=== PATIENT | female | born 1965 | race American Indian/Alaskan Native ===

== ENCOUNTER 2016-06-19 15:27 | Emergency (ER) | payer MEDICARE ==
[2016-06-19] MEDS ORDERED: KEPPRA 1,500 MG in D5W 100 ML IV ONE (22:59)
--- NOTE | 2016-06-19 23:04 | Emergency Department Report ---
ED Seizure HPI - General Chief Complaint: Seizure Stated Complaint: SEIZURE Time Seen by Provider: 06/19/16 22:50 Source: patient Mode of arrival: Ambulatory Limitations: No Limitations - History of Present Illness Initial Comments: Patient is a 50-year-old female with a history of a seizure disorder presenting to the ER status post seizure. Patient reports she takes Keppra 1500 mg by mouth twice a day but has been noncompliant for the past 3 days. Patient did have associated aura of slurred speech and lightheadedness and had a seizure in her bed radius night. Patient now complains of headache and tongue pain status post tongue bite. Reports she did not take her medications because she ran out of her meds. Patient's neurologist is Dr. Omalley. Otherwise no fevers, dizziness , hearing changes, visual changes, falls, head trauma, chest pain, shortness of breath, abdominal pain, travel, or sick contacts. MD Complaint: seizure - Related Data Home Medications Medication Instructions Recorded Confirmed Last Taken Gabapentin [Neurontin] 300 mg PO DAILY 12/30/13 01/23/16 11/17/14 Morphine [Morphine TAB] 30 mg PO DAILY 12/30/13 01/23/16 01/07/16 Previous Rx's Medication Instructions Recorded Last Taken Type Lisinopril [Zestril TAB] 20 mg PO QDAY #30 tablet 06/20/16 Unknown Rx levETIRAcetam [Keppra TAB] 1,000 mg PO BID #60 tab 06/20/16 Unknown Rx levETIRAcetam [Keppra TAB] 500 mg PO BID #60 tablet 06/20/16 Unknown Rx Allergies Allergy/AdvReac Type Severity Reaction Status Date / Time acetaminophen [From Percocet] Allergy Unknown Verified 07/14/14 18:51 oxycodone HCl [From Percocet] Allergy Unknown Verified 07/14/14 18:51 aspirin AdvReac Vomiting Verified 07/14/14 18:51 ibuprofen [From Motrin] AdvReac Vomiting Verified 07/14/14 18:51 ED Review of Systems ROS: Stated complaint: SEIZURE Other details as noted in HPI Comment: All other systems reviewed and negative ED Past Medical Hx - Past Medical History Hx Hypertension: Yes Hx CVA: Yes Hx Heart Attack/AMI: No Hx Congestive Heart Failure: No Hx Diabetes: No Hx Deep Vein Thrombosis: No Hx Pulmonary Embolism: No Hx Liver Disease: No Hx Renal Disease: No Hx Sickle Cell Disease: No Hx Arthritis: No Hx Seizures: Yes Hx Kidney Stones: No Hx Asthma: Yes Hx COPD: No Hx Tuberculosis: No Hx Dementia: No Hx HIV: No Additional medical history: FIBROIDS. CHRONIC BACK PAIN. Tachycardia. gastroparesis - Surgical History Hx Coronary Stent: No Hx Open Heart Surgery: No Hx Pacemaker: No Hx Internal Defibrillator: No Hx Cholecystectomy: Yes Hx Appendectomy: No Hx Breast Surgery: No Additional Surgical History: rotator cuff - Social History Smoking Status: Never Smoker Substance Use Type: None - Medications Home Medications: Home Medications Medication Instructions Recorded Confirmed Last Taken Type Gabapentin [Neurontin] 300 mg PO DAILY 12/30/13 01/23/16 11/17/14 History Morphine [Morphine TAB] 30 mg PO DAILY 12/30/13 01/23/16 01/07/16 History Lisinopril [Zestril TAB] 20 mg PO QDAY #30 tablet 06/20/16 Unknown Rx levETIRAcetam [Keppra TAB] 1,000 mg PO BID #60 tab 06/20/16 Unknown Rx levETIRAcetam [Keppra TAB] 500 mg PO BID #60 tablet 06/20/16 Unknown Rx ED Physical Exam - General Limitations: No Limitations General appearance: alert, in no apparent distress - Head Head exam: Present: atraumatic, normocephalic - Eye Eye exam: Present: normal appearance - ENT ENT exam: Present: mucous membranes moist, other (tongue bite to the right side) - Neck Neck exam: Present: normal inspection - Respiratory Respiratory exam: Present: normal lung sounds bilaterally. Absent: respiratory distress - Cardiovascular Cardiovascular Exam: Present: regular rate, normal rhythm. Absent: systolic murmur, diastolic murmur, rubs, gallop - GI/Abdominal GI/Abdominal exam: Present: soft, normal bowel sounds - Extremities Exam Extremities exam: Present: normal inspection - Back Exam Back exam: Present: normal inspection - Neurological Exam Neurological exam: Present: alert, oriented X3, CN II-XII intact, reflexes normal. Absent: altered, motor sensory deficit - Psychiatric Psychiatric exam: Present: normal affect, normal mood - Skin Skin exam: Present: warm, dry, intact, normal color. Absent: rash ED Course Vital Signs 06/19/16 06/19/16 06/19/16 16:31 21:56 22:31 Temperature 97.8 F 98.0 F 98.6 F Pulse Rate 92 H 95 H 91 H Respiratory 18 18 21 Rate Blood Pressure 155/98 141/104 Blood Pressure 140/102 [Left] O2 Sat by Pulse 98 97 98 Oximetry 06/20/16 00:00 Temperature Pulse Rate 90 Respiratory 18 Rate Blood Pressure Blood Pressure 146/81 [Left] O2 Sat by Pulse 98 Oximetry ED Medical Decision Making - Lab Data Result diagrams: 06/19/16 23:11 06/19/16 23:11 - EKG Data -: EKG Interpreted by Pr ([id number]) EKG shows normal: sinus rhythm, axis (normal axis, biatrial enlargement), intervals (QTc:467ms), ST-T waves ((-)ST changes, no STEMI) Rate: normal (88 bpm) - Radiology Data Radiology results: report reviewed CT Head: No acute intracranial pathology. - Medical Decision Making Ordered patient's home dose of keppra 1500mg IVPB Critical care attestation.: If time is entered above; I have spent that time in minutes in the direct care of this critically ill patient, excluding procedure time. ED Disposition Clinical Impression: Seizure Disposition: DISCHARGED TO HOME OR SELFCARE Is pt being admited?: No Condition: Stable Instructions: Epilepsy (ED) Prescriptions: levETIRAcetam [Keppra TAB] 1,000 mg PO BID #60 tab levETIRAcetam [Keppra TAB] 500 mg PO BID #60 tablet Lisinopril [Zestril TAB] 20 mg PO QDAY #30 tablet Referrals: PRIMARY CARE, [Primary Care Provider] - 3-5 Days
[2016-06-19 23:23] LABS: Basophils % (Auto) 0.4 % (0.0-1.8); Eosinophils % (Auto) 0.8 % (0.0-4.3); Hematocrit 37.2 % (30.3-42.9); Hemoglobin 12.4 gm/dl (10.1-14.3); Mean Corpuscular HGB Conc 33 % (30-34); Mean Corpuscular Hemoglobin 29 pg (28-32); Mean Corpuscular Volume 88 fl (79-97); Platelet Count 286 K/mm3 (140-440); Red Blood Count 4.26 M/mm3 (3.65-5.03); White Blood Count 7.3 K/mm3 (4.5-11.0)
[2016-06-19 23:38] LABS: Anion Gap 19 mmol/L; Blood Urea Nitrogen 8 mg/dL (7-17); Calcium 9.3 mg/dL (8.4-10.2); Carbon Dioxide 23 mmol/L (22-30); Chloride 95.3 mmol/L (98-107); Glucose 122 mg/dL (65-100); Potassium 4.2 mmol/L (3.6-5.0); Sodium 133 mmol/L (137-145)
[2016-06-20 00:55] LABS: Bacteria,Urine 1+ /HPF (Negative); Bilirubin,Urine NEG (Negative); Blood,Urine NEG (Negative); Ketones,Urine NEG (Negative); Leukocyte Esterase,Urine NEG (Negative); Mucus,Urine FEW /HPF; Nitrite,Urine NEG (Negative); RBC,Urine < 1.0 /HPF (0.0-6.0); Urobilinogen,Urine < 2.0 mg/dL (<2.0)
[2016-06-20] MEDS ORDERED: TYLENOL PO ONE (01:52)
--- NOTE | 2016-06-20 01:56 | Cat Scan Report ---
FINAL REPORT PROCEDURE: CT HEAD/BRAIN WO CON TECHNIQUE: Computerized tomography of the head was performed without contrast material. HISTORY: seizure COMPARISON: No prior studies are available for comparison. FINDINGS: Skull and scalp: Normal. Paranasal sinuses: Normal. Ventricles and subarachnoid spaces: Normal. Cerebrum: No evidence of hemorrhage, acute infarction or mass . Cerebellum and brainstem: No evidence of hemorrhage, acute infarction or mass. Vasculature: Normal. Comments: None. IMPRESSION: Normal Examination
[2016-06-20 02:06] VITALS: BP 138/80
== END 2016-06-20 02:13 | disposition home or self-care (01) ==
LOC: ED 15:27
DX: R56.9 Unspecified convulsions (principal); I10 Essential (primary) hypertension; J45.909 Unspecified asthma, uncomplicated; G89.29 Other chronic pain; Z86.73 Personal history of transient ischemic attack (TIA), and cerebral infarction without residual deficits; Z90.49 Acquired absence of other specified parts of digestive tract; Z88.6 Allergy status to analgesic agent; Z88.8 Allergy status to other drugs, medicaments and biological substances
CPT/HCPCS: 36415; 70450; 80048; 81001; 81025; 85025; 93005; 93010; 96365; 96366; 99285; J1953

== ENCOUNTER 2016-08-13 16:31 | Emergency (ER) | payer MEDICARE ==
--- NOTE | 2016-08-13 17:05 | Emergency Department Report ---
ED Seizure HPI - General Chief Complaint: Seizure Stated Complaint: SEIZURE Time Seen by Provider: 08/13/16 17:01 Source: patient, EMS Mode of arrival: Stretcher Limitations: No Limitations - History of Present Illness Initial Comments: Patient is a 51-year-old female with a history of hypertension and seizure disorder presenting with seizures. Patient reports she had 2 seizures today, one in the morning and then one about 30 minutes prior to arrival. Patient reports her seizures were unwitnessed but she knows she had a seizure because she bit her tongue and urinary incontinence. Patient is now awake and alert but also complaining of slurred speech that started this morning, nausea, vomiting, and a frontal GRIJALVA, but no other complaints noted. No new medications, patient takes Keppra 1500mg PO BID and has not missed any doses. Pt had an EEG a week ago for routine monitoring with Dr Omalley. Otherwise no fevers, chills, CP , SOB, abd pain, travel, gait instability, dysuria, back pain, trauma, falls, or sick contacts. Neuro: Dr Shahram MCRAE Complaint: seizure - Related Data Home Medications Medication Instructions Recorded Confirmed Last Taken Gabapentin [Neurontin] 300 mg PO DAILY 12/30/13 01/23/16 11/17/14 Morphine [Morphine TAB] 30 mg PO DAILY 12/30/13 01/23/16 01/07/16 Previous Rx's Medication Instructions Recorded Last Taken Type Lisinopril [Zestril TAB] 20 mg PO QDAY #30 tablet 06/20/16 Unknown Rx levETIRAcetam [Keppra TAB] 1,000 mg PO BID #60 tab 06/20/16 Unknown Rx levETIRAcetam [Keppra TAB] 500 mg PO BID #60 tablet 06/20/16 Unknown Rx amLODIPine [Norvasc] 5 mg PO DAILY #30 tab 08/13/16 Unknown Rx Allergies Allergy/AdvReac Type Severity Reaction Status Date / Time acetaminophen [From Percocet] Allergy Unknown Verified 07/14/14 18:51 oxycodone HCl [From Percocet] Allergy Unknown Verified 07/14/14 18:51 aspirin AdvReac Vomiting Verified 07/14/14 18:51 ibuprofen [From Motrin] AdvReac Vomiting Verified 07/14/14 18:51 ED Review of Systems ROS: Stated complaint: SEIZURE Other details as noted in HPI Comment: All other systems reviewed and negative ED Past Medical Hx - Past Medical History Previous Medical History?: Yes Hx Hypertension: Yes Hx CVA: Yes Hx Heart Attack/AMI: No Hx Congestive Heart Failure: No Hx Diabetes: No Hx Deep Vein Thrombosis: No Hx Pulmonary Embolism: No Hx Liver Disease: No Hx Renal Disease: No Hx Sickle Cell Disease: No Hx Arthritis: No Hx Seizures: Yes Hx Kidney Stones: No Hx Asthma: Yes Hx COPD: No Hx Tuberculosis: No Hx Dementia: No Hx HIV: No Additional medical history: FIBROIDS. CHRONIC BACK PAIN. Tachycardia. gastroparesis - Surgical History Past Surgical History?: Yes Hx Coronary Stent: No Hx Open Heart Surgery: No Hx Pacemaker: No Hx Internal Defibrillator: No Hx Cholecystectomy: Yes Hx Appendectomy: No Hx Breast Surgery: No Additional Surgical History: rotator cuff - Social History Smoking Status: Never Smoker Substance Use Type: None - Medications Home Medications: Home Medications Medication Instructions Recorded Confirmed Last Taken Type Gabapentin [Neurontin] 300 mg PO DAILY 12/30/13 01/23/16 11/17/14 History Morphine [Morphine TAB] 30 mg PO DAILY 12/30/13 01/23/16 01/07/16 History Lisinopril [Zestril TAB] 20 mg PO QDAY #30 tablet 06/20/16 Unknown Rx levETIRAcetam [Keppra TAB] 1,000 mg PO BID #60 tab 06/20/16 Unknown Rx levETIRAcetam [Keppra TAB] 500 mg PO BID #60 tablet 06/20/16 Unknown Rx amLODIPine [Norvasc] 5 mg PO DAILY #30 tab 08/13/16 Unknown Rx ED Physical Exam - General Limitations: No Limitations General appearance: alert, in no apparent distress - Head Head exam: Present: atraumatic, normocephalic - Eye Eye exam: Present: normal appearance - ENT ENT exam: Present: mucous membranes moist - Neck Neck exam: Present: normal inspection - Respiratory Respiratory exam: Present: normal lung sounds bilaterally. Absent: respiratory distress - Cardiovascular Cardiovascular Exam: Present: regular rate, normal rhythm. Absent: systolic murmur, diastolic murmur, rubs, gallop - GI/Abdominal GI/Abdominal exam: Present: soft, normal bowel sounds - Extremities Exam Extremities exam: Present: normal inspection - Back Exam Back exam: Present: normal inspection - Neurological Exam Neurological exam: Present: alert, oriented X3, CN II-XII intact, other ( Patient does not have slurred speech, she is speaking clear sentences. ). Absent: motor sensory deficit - Psychiatric Psychiatric exam: Present: normal affect, normal mood - Skin Skin exam: Present: warm, dry, intact, normal color. Absent: rash ED Course Vital Signs 08/13/16 08/13/16 08/13/16 16:37 16:45 17:01 Pulse Rate 116 H 102 H Respiratory 24 17 Rate Blood Pressure 148/107 148/107 Blood Pressure [Right] O2 Sat by Pulse 96 95 95 Oximetry 08/13/16 08/13/16 08/13/16 17:18 17:53 18:00 Pulse Rate 107 H 114 H Respiratory 17 25 H 22 Rate Blood Pressure 160/96 163/96 Blood Pressure [Right] O2 Sat by Pulse 95 97 96 Oximetry 08/13/16 08/13/16 08/13/16 18:17 18:30 20:06 Pulse Rate 110 H 108 H Respiratory 25 H 25 H 20 Rate Blood Pressure 143/88 Blood Pressure 117/79 [Right] O2 Sat by Pulse 88 99 Oximetry 08/13/16 21:44 Pulse Rate 98 H Respiratory 20 Rate Blood Pressure Blood Pressure 141/90 [Right] O2 Sat by Pulse 98 Oximetry ED Medical Decision Making - Lab Data Result diagrams: 08/13/16 17:20 08/13/16 16:50 - EKG Data -: EKG Interpreted by Hi - EKG Data 08/13/16 17:25 EKG 1747 NSR at 109 bpm, normal axis, no LVH, LAE, no ST changes, no STEMI - Radiology Data Radiology results: report reviewed CT head: No acute intracranial abnormality - Medical Decision Making Pt re-evaluated, patient reports significant improvement. Pt ordered Kdur 40meq for potassium repletion Pt given PM dose of her Keppra 1500mg 2015: Pt re-evaluated, patient comfortable, no seizure activity in the ED, patients HR: 107 bpm, ordered 1L NS IVF bolus Critical care attestation.: If time is entered above; I have spent that time in minutes in the direct care of this critically ill patient, excluding procedure time. ED Disposition Clinical Impression: Seizure disorder, Hypokalemia Disposition: DC-01 TO HOME OR SELFCARE Is pt being admited?: No Condition: Stable Instructions: Hypokalemia (ED), Epilepsy (ED) Prescriptions: amLODIPine [Norvasc] 5 mg PO DAILY #30 tab Referrals: PRIMARY CARE, [Primary Care Provider] - 3-5 Days FRITZ NAGEL MD [Staff Physician] - 3-5 Days
[2016-08-13 17:29] LABS: Hematocrit 44.5 % (30.3-42.9); Hemoglobin 14.9 gm/dl (10.1-14.3); Mean Corpuscular HGB Conc 34 % (30-34); Mean Corpuscular Hemoglobin 30 pg (28-32); Mean Corpuscular Volume 89 fl (79-97); Platelet Count 375 K/mm3 (140-440); Red Cell Distribution Width 14.4 % (13.2-15.2); White Blood Count 10.2 K/mm3 (4.5-11.0)
--- NOTE | 2016-08-13 17:40 | Cat Scan Report ---
FINAL REPORT PROCEDURE: CT HEAD/BRAIN WO CON TECHNIQUE: Computerized tomography of the head was performed without contrast material. HISTORY: slurred speech COMPARISON: Prior study 06/20/2016 FINDINGS: Brain: Brain density appears normal. No evidence of intracranial hemorrhage. No parenchymal hemorrhage, mass lesions or mass effect are seen. No abnormal extraxial fluid collects or masses are seen. Minimal nonspecific mineralization of the basal ganglia are visualized. Ventricles: Ventricles are normal size and are midline. Bone Windows: No evidence of skull fracture. Paranasal sinuses: Visualized portions of the paranasal sinuses appear clear. Mastoid air cells: Clear IMPRESSION: Negative examination
[2016-08-13 17:50] LABS: Anion Gap 23 mmol/L; Blood Urea Nitrogen 12 mg/dL (7-17); Carbon Dioxide 24 mmol/L (22-30); Chloride 96.1 mmol/L (98-107); Glucose 151 mg/dL (65-100); Potassium 3.2 mmol/L (3.6-5.0); Sodium 140 mmol/L (137-145)
[2016-08-13] MEDS ORDERED: MAGNESIUM SULFATE 2GM/50ML 2 GM/50 ML BAG IV ONE (17:52)
[2016-08-13] MEDS ORDERED: NACL 0.9% 1000 ML 1,000 ML IV ONE ×2 (18:10→20:15)
[2016-08-13] MEDS ORDERED: REGLAN IV ONE (18:10)
[2016-08-13] MEDS ORDERED: MORPHINE IV ONE (18:11)
[2016-08-13 18:43] LABS: INR 0.95 (0.87-1.13)
[2016-08-13 18:44] LABS: Partial Thromboplastin Time 32.5 Sec. (24.2-36.6)
[2016-08-13] MEDS ORDERED: K-DUR PO ONE (19:03)
[2016-08-13 19:07] LABS: Basophils % (Manual) 0 % (0.0-1.8); Blastocytes % (Manual) 0 %
[2016-08-13 19:08] LABS: Diff Status Complete; Large Platelets 1+; Platelet Estimate Consistent w Auto; RBC Morphology Normal
[2016-08-13] MEDS ORDERED: KEPPRA PO ONE ×2 (19:12→19:13)
[2016-08-13 19:58] LABS: Bilirubin,Urine NEG (Negative); Blood,Urine SM (Negative); Ketones,Urine 20 mg/dL (Negative); Leukocyte Esterase,Urine NEG (Negative); Mucus,Urine 2+ /HPF; Nitrite,Urine NEG (Negative); Urobilinogen,Urine < 2.0 mg/dL (<2.0)
[2016-08-13 19:59] LABS: Protein,Urine >500 mg/dL (Negative)
[2016-08-13 21:45] VITALS: BP 141/90
--- NOTE | 2016-08-14 07:27 | XRay Report ---
Single view chest: History: Dyspnea. Findings: Normal cardiomediastinal silhouette. Trachea is midline. No consolidation, pneumothorax or pleural effusion. Impression: No acute cardiopulmonary findings.
== END 2016-08-13 22:03 | disposition home or self-care (01) ==
LOC: ED 16:31
DX: G40.909 Epilepsy, unspecified, not intractable, without status epilepticus (principal); E87.6 Hypokalemia; I10 Essential (primary) hypertension; I63.9 Cerebral infarction, unspecified; J45.909 Unspecified asthma, uncomplicated; G89.29 Other chronic pain; K31.84 Gastroparesis; Z88.8 Allergy status to other drugs, medicaments and biological substances; Z88.6 Allergy status to analgesic agent
CPT/HCPCS: 36415; 70450; 71010; 80048; 80177; 81001; 83735; 84484; 85007; 85025; 85610; 85670; 85730; 93005; 93010; 96361; 96365; 96375; 99285; J2270; J2765; J3475; J7030

== ENCOUNTER 2016-08-14 08:41 | Emergency (ER) | payer MEDICARE ==
[2016-08-14 09:14] LABS: Basophils % (Auto) 0.1 % (0.0-1.8); Eosinophils % (Auto) 0.1 % (0.0-4.3); Mean Corpuscular HGB Conc 33 % (30-34); Mean Corpuscular Hemoglobin 30 pg (28-32); Mean Corpuscular Volume 88 fl (79-97); Platelet Count 312 K/mm3 (140-440); Red Blood Count 4.42 M/mm3 (3.65-5.03); Red Cell Distribution Width 14.4 % (13.2-15.2); White Blood Count 8.1 K/mm3 (4.5-11.0)
[2016-08-14 09:25] LABS: Anion Gap 21 mmol/L; Blood Urea Nitrogen 9 mg/dL (7-17); Calcium 9.4 mg/dL (8.4-10.2); Carbon Dioxide 22 mmol/L (22-30); Chloride 102.8 mmol/L (98-107); Glucose 175 mg/dL (65-100); Potassium 3.6 mmol/L (3.6-5.0); Sodium 142 mmol/L (137-145)
[2016-08-14 09:27] LABS: Bacteria,Urine 1+ /HPF (Negative); Bilirubin,Urine NEG (Negative); Blood,Urine SM (Negative); Ketones,Urine TR mg/dL (Negative); Leukocyte Esterase,Urine NEG (Negative); Mucus,Urine 3+ /HPF; Nitrite,Urine NEG (Negative); Urobilinogen,Urine < 2.0 mg/dL (<2.0)
[2016-08-14] MEDS ORDERED: NACL 0.9% 1000 ML 1,000 ML IV ONE (10:24)
--- NOTE | 2016-08-14 10:26 | Emergency Department Report ---
ED Abdominal Pain HPI - General Chief Complaint: Nausea/Vomiting/Diarrhea Stated Complaint: N/V Time Seen by Provider: 08/14/16 10:11 Source: EMS Mode of arrival: Ambulatory Limitations: No Limitations - History of Present Illness Initial Comments: Patient is a 51-year-old female with history of seizure disorder, presenting with nausea, vomiting, abdominal pain, and diarrhea. Patient was seen by me yesterday for a seizure, workup was negative for infection, she was given her p.m. Keppra, and patient was discharged home. Patient reports around midnight last night she started to have intractable nausea and vomiting associated with epigastric pain and an episode of diarrhea. Patient pushes not taking her seizure medication today. Otherwise no fevers, chills, headache, dizziness, chest pain, shortness of breath, trauma, falls, sick contacts - Related Data Home Medications Medication Instructions Recorded Confirmed Last Taken Gabapentin [Neurontin] 300 mg PO DAILY 12/30/13 01/23/16 11/17/14 Morphine [Morphine TAB] 30 mg PO DAILY 12/30/13 01/23/16 01/07/16 Previous Rx's Medication Instructions Recorded Last Taken Type Lisinopril [Zestril TAB] 20 mg PO QDAY #30 tablet 06/20/16 Unknown Rx levETIRAcetam [Keppra TAB] 1,000 mg PO BID #60 tab 06/20/16 Unknown Rx levETIRAcetam [Keppra TAB] 500 mg PO BID #60 tablet 06/20/16 Unknown Rx amLODIPine [Norvasc] 5 mg PO DAILY #30 tab 08/13/16 Unknown Rx Ondansetron [Zofran ODT TAB] 8 mg PO Q8HR PRN #12 tab.rapdis 08/14/16 Unknown Rx Allergies Allergy/AdvReac Type Severity Reaction Status Date / Time acetaminophen [From Percocet] Allergy Unknown Verified 07/14/14 18:51 oxycodone HCl [From Percocet] Allergy Unknown Verified 07/14/14 18:51 aspirin AdvReac Vomiting Verified 07/14/14 18:51 ibuprofen [From Motrin] AdvReac Vomiting Verified 07/14/14 18:51 ED Review of Systems ROS: Stated complaint: N/V Other details as noted in HPI Comment: All other systems reviewed and negative ED Past Medical Hx - Past Medical History Previous Medical History?: Yes Hx Hypertension: Yes Hx CVA: Yes Hx Heart Attack/AMI: No Hx Congestive Heart Failure: No Hx Diabetes: No Hx Deep Vein Thrombosis: No Hx Pulmonary Embolism: No Hx Liver Disease: No Hx Renal Disease: No Hx Sickle Cell Disease: No Hx Arthritis: No Hx Seizures: Yes Hx Kidney Stones: No Hx Asthma: Yes Hx COPD: No Hx Tuberculosis: No Hx Dementia: No Hx HIV: No Additional medical history: FIBROIDS. CHRONIC BACK PAIN. Tachycardia. gastroparesis - Surgical History Past Surgical History?: Yes Hx Coronary Stent: No Hx Open Heart Surgery: No Hx Pacemaker: No Hx Internal Defibrillator: No Hx Cholecystectomy: Yes Hx Appendectomy: No Hx Breast Surgery: No Additional Surgical History: rotator cuff - Social History Smoking Status: Never Smoker Substance Use Type: Prescribed - Medications Home Medications: Home Medications Medication Instructions Recorded Confirmed Last Taken Type Gabapentin [Neurontin] 300 mg PO DAILY 12/30/13 01/23/16 11/17/14 History Morphine [Morphine TAB] 30 mg PO DAILY 12/30/13 01/23/16 01/07/16 History Lisinopril [Zestril TAB] 20 mg PO QDAY #30 tablet 06/20/16 Unknown Rx levETIRAcetam [Keppra TAB] 1,000 mg PO BID #60 tab 06/20/16 Unknown Rx levETIRAcetam [Keppra TAB] 500 mg PO BID #60 tablet 06/20/16 Unknown Rx amLODIPine [Norvasc] 5 mg PO DAILY #30 tab 08/13/16 Unknown Rx Ondansetron [Zofran ODT TAB] 8 mg PO Q8HR PRN #12 tab.rapdis 08/14/16 Unknown Rx ED Physical Exam - General Limitations: No Limitations General appearance: alert, in no apparent distress - Head Head exam: Present: atraumatic, normocephalic - Eye Eye exam: Present: normal appearance - ENT ENT exam: Present: mucous membranes moist - Neck Neck exam: Present: normal inspection - Respiratory Respiratory exam: Present: normal lung sounds bilaterally. Absent: respiratory distress - Cardiovascular Cardiovascular Exam: Present: regular rate, normal rhythm. Absent: systolic murmur, diastolic murmur, rubs, gallop - GI/Abdominal GI/Abdominal exam: Present: soft, tenderness (epigastric), normal bowel sounds. Absent: distended, guarding, rebound, rigid - Rectal Rectal exam: Present: deferred - Extremities Exam Extremities exam: Present: normal inspection, full ROM. Absent: tenderness - Back Exam Back exam: Present: normal inspection - Neurological Exam Neurological exam: Present: alert, oriented X3 - Psychiatric Psychiatric exam: Present: normal affect, normal mood - Skin Skin exam: Present: warm, dry, intact, normal color. Absent: rash ED Course Vital Signs 08/14/16 08/14/16 08:46 11:19 Temperature 98.6 F Pulse Rate 81 Respiratory 18 16 Rate Blood Pressure 158/100 O2 Sat by Pulse 98 Oximetry ED Medical Decision Making - Lab Data Result diagrams: 08/14/16 08:55 08/14/16 10:39 - Radiology Data Radiology results: report reviewed Pelvic: Intestinal changes likely related to gastroenteritis and diarrhea. Calcification seen in L adenxa - Medical Decision Making Patient reports improvement. Results discussed with patient. Advised patient to continue her seizure medications, zofran for nausea, and to feed through the gastroenteritis. Pt to follow up with pMD Critical care attestation.: If time is entered above; I have spent that time in minutes in the direct care of this critically ill patient, excluding procedure time. ED Disposition Clinical Impression: Gastroenteritis, Nausea & vomiting, Diarrhea Disposition: DC-01 TO HOME OR SELFCARE Is pt being admited?: No Condition: Stable Instructions: Gastroenteritis (ED), Acute Nausea and Vomiting (ED) Prescriptions: Ondansetron [Zofran ODT TAB] 8 mg PO Q8HR PRN #12 tab.rapdis PRN Reason: Nausea Referrals: PRIMARY CARE,MD [Primary Care Provider] - 3-5 Days
[2016-08-14] MEDS ORDERED: ZOFRAN IV ONE (11:11)
[2016-08-14] MEDS ORDERED: MORPHINE IV ONE (11:11)
[2016-08-14 11:15] LABS: Alanine Aminotransferase 62 units/L (7-56); Albumin 4.2 g/dL (3.9-5); Albumin/Globulin Ratio 0.9 %; Alkaline Phosphatase 95 units/L (35-129); Anion Gap 20 mmol/L; Blood Urea Nitrogen 9 mg/dL (7-17); Calcium 9.5 mg/dL (8.4-10.2); Carbon Dioxide 23 mmol/L (22-30); Chloride 102.7 mmol/L (98-107); Glucose 142 mg/dL (65-100); Lipase 26 units/L (13-60); Potassium 3.8 mmol/L (3.6-5.0); Sodium 142 mmol/L (137-145); Total Protein 8.9 g/dL (6.3-8.2)
--- NOTE | 2016-08-14 12:31 | Admit Criteria Form ---
Admission Criteria Documentation: GASTROENTEROLOGY [facility] Clinical Indications for Admission to Inpatient Care (Place 'X' for any and all applicable criteria): Hospital admission is needed for appropriate care of the patient because of ANY ONE of the following: [ ]I. Hemoperitoneum(7) [ ]II. Ascites requiring acute treatment indicated by ANY ONE of the following( 8)(9): [ ]a) Hemodynamic instability remaining after emergency or observation level care (as appropriate) [ ]b) Peritoneal signs present (eg, abdominal rigidity, rebound tenderness, absent bowel sounds) [ ]c) Tachypnea, Hypoxemia, or other respiratory symptoms remain after emergency or observation level care (as appropriate) [ ]d) Suspected infected ascites as indicated by ANY ONE of the following: [ ]i) Temperature greater than 100 degrees F (37.8 degrees C) [ ]ii) Abdominal pain or tenderness not relieved by paracentesis [ ]iii) Systemic signs of infection (eg, elevated WBC count, fever) [ ]iv) Ascitic fluid analysis consistent with infection ( eg, elevated WBC count): [ ]v) Vital sign abnormality [ ]III. Suspected acute intra-abdominal process indicated by ANY ONE of the following(1)(2)(3)(4)(5): [ ]a) Hemodynamic instability [ ]b) Peritoneal signs present (eg, abdominal rigidity, rebound tenderness, absent bowel sounds) [ ]c) Bowel obstruction suspected (eg, severe vomiting, abdominal distension) [ ]d) Suspected mesenteric ischemia or ischemic colitis(6) [ ]e) Other signs or symptoms of acute abdominal disease (eg, severe pain, free air): [ ]IV. Severe liver disease indicated by ANY ONE of the following(8)(9)(10)(11)( 12)(13)(14): [ ]a) Acute hepatitis (eg, transaminase level greater than 1000 IU/L) [ ]b) Acute elevation of prothrombin time to more than 50% above normal or INR greater than 1.5 [ ]c) Bilirubin greater than 20 mg/dL (342 micromoles/L) (15) [ ]d) New-onset or worsening hepatic encephalopathy [ ]e) Acute liver necrosis [ ]f) Vomiting or dehydration that is severe of persistent [ ]g) Hemodynamic instability due to liver disease [ ]h) Acute renal failure [ ]i) Hepatic abscess [ ]j) Dehydration that is severe or persistent [ ]k) Hepatic hydrothorax(21) [ ]l) Other indications of severe liver disease (eg, persistent fever , ingestion of hepatotoxin) [ ]V. Severe diarrhea indicated by ANY ONE of the following(17)(18)(19)(20)(21)( 22)(23): [ ]a) High fever or other high-risk infection situation [ ]b) Intractable bloody diarrhea (eg, more than 6 bloody stools per day) [ ]c) Suspected Clostridium difficile-associated diarrhea(24) [ ]d) Change in mental status that persists after emergency or observation level care (as appropriate) [ ]e) Severe dehydration (eg, greater than 9% loss of body weight in children) [ ]f) Inability to maintain hydration [ ]g) Peritoneal signs present (eg, abdominal rigidity, rebound tenderness, absent bowel sounds) [ ]h) Abdominal ischemia suspected(6) [ ]i) Hemodynamic instability that persists after emergency or observation level care (as appropriate) [ ]j) Severe electrolyte abnormalities requiring inpatient care [ ]k) Acute renal failure [ ]. Suspected toxic megacolon(5)(6) [ ]VII.Severe dysphagia indicated by ANY ONE of the following(25)(26): [ ]a) Suspected esophageal perforation or fistula(27) [ ]b) Suspected cause that requires inpatient care (eg, caustic ingestion, severe esophagitis) (28) [ ]c) Severe dehydration (eg, greater than 9% loss of body weight in children) [ ]d) Inability to manage secretions or maintain hydration [ ]e) Hemodynamic instability that persists after emergency or observation level care (as appropriate) [ ]f) Severe electrolyte abnormalities requiring inpatient care [ ]g) Acute renal failure [ ]VIII.Vomiting and ANY ONE of the following (29)(30)(31)(32): [ ]a) High fever or other high-risk infection situation [ ]b) Change in mental status that persists after emergency or observation level care (as appropriate) [ ]c) Severe dehydration (e.g., greater than 9% loss of body weight in children) [ ]d) Peritoneal signs present (e.g., abdominal rigidity, rebound tenderness, absent bowel sounds) [ ]e) Hemodynamic instability that persists after emergency or observation level care (as appropriate) [ ]f) Severe electrolyte abnormalities requiring inpatient care [ ]g) Acute renal failure [ ]h) Bowel obstruction suspected (e.g., severe vomiting, abdominal distension) [ ]i) Vomiting that is severe or persistent after medical treatment [ ]IX. Significant dehydration indicated by ANY ONE of the following(23)(24)(25) [ ]a) Clinical findings of severe dehydration indicated by ANY ONE of the following: [ ]i) Acute loss of weight from baseline (5% of body weight in adults, 9% in pediatric patients) [ ]ii) Hemodynamic instability [ ]iii) Acute renal failure [ ]iv) Serum sodium greater than 150 mEq/L (mmol/L) [ ]b) Dehydration that is persistent indicated by ALL of the following: [ ]i) Oral rehydration therapy not tolerated or insufficient to adequately correct dehydration [ ]ii) Appropriate intravenous treatment (eg, fluids) does not readily correct dehydration hours of (ie, after 12 to 24 of treatment) [ ]X. Gastroparesis and ANY ONE of the following(37)(38)(39): [ ]a) Dehydration that is severe or persistent [ ]b) Severe electrolyte abnormalities requiring inpatient care [ ]c) Acute renal failure [ ]d) Vomiting that is severe or persistent [ ]XI. Complications of transplanted liver indicated by ANY ONE of the following (40)(41): [ ]a) Acute graft rejection requiring inpatient management (eg, intravenous immunosuppression)(42) [ ]b) Failure of transplanted liver as indicated by ANY ONE of the following: [ ]i) Acute hepatitis (eg, transaminase level greater than 1000 International Units per liter (IU/L)) [ ]ii) Acute elevation of prothrombin time to more than 50% above baseline or INR greater than 1.5 [ ]iii) Bilirubin greater than 20 mg/dL (342 micromoles/L) [ ]iv) New-onset or worsening hepatic encephalopathy [ ]v) Acute elevation of serum ammonia level (eg, greater than 210 mcg/dL (150 micromoles/L)) [ ]vi) Acute liver necrosis [ ]c) Infection requiring inpatient management (eg, Hemodynamic instability, need for intravenous antimicrobial treatment)(43)(44)(45)(46)(47)(48)(49)(50) [ ]d) Other complication of transplanted liver (eg, thrombosis, autoimmune hepatitis, variceal bleeding) requiring inpatient management(51)(52) [ ]XII Complications of transplanted pancreas indicated by ANY ONE of the following(53): [ ]a) Acute graft rejection requiring inpatient management (eg, intravenous immunosuppression)(42)(54) [ ]b) Failure of transplanted pancreas as indicated by ANY ONE of the following: [ ]i) Serum amylase greater than 3 times the upper limit of normal or baseline [ ]ii) Serum lipase greater than 3 times the upper limit of normal or baseline [ ]iii) Imaging findings consistent with pancreatic inflammation or necrosis [ ]c) Infection requiring inpatient management (eg, Hemodynamic instability, need for intravenous antimicrobial treatment)(43)(44)(45)(46)(47)(48)(49)(50) [ ]d) Other complication of transplanted liver (eg, thrombosis, autoimmune hepatitis, variceal bleeding) requiring inpatient management(51)(52) [ ]X. Gastroenterology condition and ALL of the following: [ ]a) Symptom or finding for which emergency and observation care have failed or are not considered appropriate (Also use General Criteria: Observation Care as appropriate) [ ]b) Presence of ANY ONE of the following: [ ]i) A General Admission Criteria [ ]ii) A Pediatric General Admission Criteria. The original [facility] content created by [employer] has been revised. The portions of the content which have been revised are identified through the use of italic text or in bold,and [facility] has neither reviewed nor approved the modified material. All other unmodified content is copyright [facility]. Please see references footnoted in the original [facility] [employer] edition 2016
--- NOTE | 2016-08-14 12:58 | Cat Scan Report ---
CT scan of abdomen and pelvis with IV contrast: Findings: Normal lung bases. No pleural pericardial effusion. Normal liver spleen and pancreas. Patient status post cholecystectomy. Common bile duct diameter 1.2 cm. No definite intrahepatic duct dilatation. Normal adrenals kidneys and bladder. No free intraperitoneal fluid or air. No evidence of adenopathy. Normal aorta. Large mass within the uterus measuring 7 cm in diameter. The attenuation value of 50 8H U. Probably a large fibroid. Calcification in left adnexa. Fluid in small bowel without bowel distention or wall thickening. Minimal fluid in colon. No evidence of appendicitis or diverticulitis. Impression: Bowel changes probably related to diarrhea/gastroenteritis. Mass within the uterus. Calcification in left adnexa. Sonographic correlation may be advised.
[2016-08-14] MEDS ORDERED: KEPPRA 1,500 MG in D5W 100 ML IV ONE (13:00)
[2016-08-14 13:26] LABS: Bacteria,Urine 1+ /HPF (Negative); Bilirubin,Urine NEG (Negative); Blood,Urine NEG (Negative); Ketones,Urine TR mg/dL (Negative); Leukocyte Esterase,Urine NEG (Negative); Mucus,Urine FEW /HPF; Nitrite,Urine NEG (Negative); Protein,Urine <15 mg/dL mg/dL (Negative); Urobilinogen,Urine < 2.0 mg/dL (<2.0); WBC,Urine < 1.0 /HPF (0.0-6.0)
[2016-08-14] MEDS ORDERED: REGLAN ONE (13:28)
[2016-08-14] MEDS ORDERED: KEPPRA 1,000 MG/NS 0.75% 100ML 0 MG/0 ML BAG IV ONE (13:28)
[2016-08-14] MEDS ORDERED: REGLAN IV ONE (13:30)
[2016-08-14 15:03] VITALS: BP 137/83
== END 2016-08-14 15:03 | disposition home or self-care (01) ==
LOC: ED 08:41
DX: K52.89 Other specified noninfective gastroenteritis and colitis (principal); R11.2 Nausea with vomiting, unspecified; R19.7 Diarrhea, unspecified; Z86.73 Personal history of transient ischemic attack (TIA), and cerebral infarction without residual deficits; I10 Essential (primary) hypertension; R56.9 Unspecified convulsions; J45.909 Unspecified asthma, uncomplicated; G89.29 Other chronic pain; Z88.6 Allergy status to analgesic agent; Z88.8 Allergy status to other drugs, medicaments and biological substances
CPT/HCPCS: 36415; 74177; 80048; 80053; 81001; 82962; 83690; 84484; 85025; 96361; 96365; 96375; 99285; J1953; J2270; J2405; J2765; J7030; Q9967

== ENCOUNTER 2016-08-26 20:25 | Emergency (ER) | payer MEDICARE ==
[2016-08-27 02:42] LABS: Alanine Aminotransferase 37 units/L (7-56); Albumin 4.3 g/dL (3.9-5); Albumin/Globulin Ratio 0.8 %; Alkaline Phosphatase 100 units/L (35-129); Anion Gap 20 mmol/L; Blood Urea Nitrogen 21 mg/dL (7-17); Calcium 9.6 mg/dL (8.4-10.2); Carbon Dioxide 23 mmol/L (22-30); Glucose 152 mg/dL (65-100); Lipase 36 units/L (13-60); Potassium 3.1 mmol/L (3.6-5.0); Sodium 138 mmol/L (137-145); Total Protein 9.4 g/dL (6.3-8.2)
[2016-08-27 03:08] LABS: Basophils % (Auto) 0.3 % (0.0-1.8); Eosinophils % (Auto) 0.8 % (0.0-4.3); Hematocrit 44.4 % (30.3-42.9); Hemoglobin 14.6 gm/dl (10.1-14.3); Mean Corpuscular HGB Conc 33 % (30-34); Mean Corpuscular Hemoglobin 29 pg (28-32); Mean Corpuscular Volume 89 fl (79-97); Platelet Count 430 K/mm3 (140-440); Red Blood Count 5.02 M/mm3 (3.65-5.03); Red Cell Distribution Width 14.5 % (13.2-15.2); White Blood Count 7.3 K/mm3 (4.5-11.0)
[2016-08-27] MEDS ORDERED: NACL 0.9% 1000 ML 1,000 ML IV ONE (04:00)
[2016-08-27] MEDS ORDERED: ZOFRAN IV ONE (04:00)
[2016-08-27 07:58] LABS: Bilirubin,Urine NEG (Negative); Blood,Urine NEG (Negative); Ketones,Urine 20 mg/dL (Negative); Leukocyte Esterase,Urine TR (Negative); Mucus,Urine 1+ /HPF; Nitrite,Urine NEG (Negative); Urobilinogen,Urine < 2.0 mg/dL (<2.0)
--- NOTE | 2016-08-27 08:17 | Emergency Department Report ---
ED Abdominal Pain HPI - General Chief Complaint: Abdominal Pain Stated Complaint: STOMACH CRAMP/DIARRHEA/VOMITING Time Seen by Provider: 08/27/16 08:15 Source: patient Mode of arrival: Ambulatory Limitations: No Limitations - History of Present Illness Initial Comments: Patient states that she has run out of her morphine which she is on maintenance for for chronic pain. She doesn't have any explanation for this nor has she contacted her primary care physician. She states that her pain management is per a primary care physician. She complains of nausea vomiting and diarrhea. She was here on 08/14/2016 with similar complaints. She did not follow-up with the GI doctor. She's had no recent fever or chills. She has not vomited since I've been here in the emergency department nor have I noted any significant diarrhea. Patient did state that she went to the bathroom once this a.m. She had a CT on 08/14/2016 which was consistent with gastroenteritis. I do not believe she had any C. difficile study at that time. MD Complaint: abdominal pain -: Gradual, week(s) Location: diffuse Radiation: none Migration to: no migration Severity: moderate Quality: cramping Consistency: intermittent Improves With: nothing Worsens With: nothing Associated Symptoms: nausea, vomiting, diarrhea - Related Data Home Medications Medication Instructions Recorded Confirmed Last Taken Gabapentin [Neurontin] 300 mg PO DAILY 12/30/13 01/23/16 11/17/14 Morphine [Morphine TAB] 30 mg PO DAILY 12/30/13 01/23/16 01/07/16 Previous Rx's Medication Instructions Recorded Last Taken Type Lisinopril [Zestril TAB] 20 mg PO QDAY #30 tablet 06/20/16 Unknown Rx levETIRAcetam [Keppra TAB] 1,000 mg PO BID #60 tab 06/20/16 Unknown Rx levETIRAcetam [Keppra TAB] 500 mg PO BID #60 tablet 06/20/16 Unknown Rx amLODIPine [Norvasc] 5 mg PO DAILY #30 tab 08/13/16 Unknown Rx Ondansetron [Zofran ODT TAB] 8 mg PO Q8HR PRN #12 tab.rapdis 08/14/16 Unknown Rx Morphine ER [Ms Contin ER] 30 mg PO QDAY #5 tablet 08/27/16 Unknown Rx Ondansetron [Zofran Odt] 4 mg PO Q6H PRN #10 tab.rapdis 08/27/16 Unknown Rx metroNIDAZOLE [Flagyl] 500 mg PO Q8HR #30 tablet 08/27/16 Unknown Rx Allergies Allergy/AdvReac Type Severity Reaction Status Date / Time acetaminophen [From Percocet] Allergy Unknown Verified 07/14/14 18:51 oxycodone HCl [From Percocet] Allergy Unknown Verified 07/14/14 18:51 aspirin AdvReac Vomiting Verified 07/14/14 18:51 ibuprofen [From Motrin] AdvReac Vomiting Verified 07/14/14 18:51 ED Review of Systems ROS: Stated complaint: STOMACH CRAMP/DIARRHEA/VOMITING Other details as noted in HPI Constitutional: denies: chills, fever Eyes: denies: eye pain, eye discharge, vision change ENT: denies: ear pain, throat pain Respiratory: denies: cough, shortness of breath, wheezing Cardiovascular: denies: chest pain, palpitations Endocrine: no symptoms reported Gastrointestinal: as per HPI, abdominal pain, nausea, vomiting, diarrhea Genitourinary: denies: urgency, dysuria, discharge Musculoskeletal: denies: back pain, joint swelling, arthralgia Skin: denies: rash, lesions Neurological: denies: headache, weakness, paresthesias Psychiatric: denies: anxiety, depression Hematological/Lymphatic: denies: easy bleeding, easy bruising ED Past Medical Hx - Past Medical History Hx Hypertension: Yes Hx CVA: Yes Hx Heart Attack/AMI: No Hx Congestive Heart Failure: No Hx Diabetes: No Hx Deep Vein Thrombosis: No Hx Pulmonary Embolism: No Hx Liver Disease: No Hx Renal Disease: No Hx Sickle Cell Disease: No Hx Arthritis: No Hx Seizures: Yes Hx Kidney Stones: No Hx Asthma: Yes Hx COPD: No Hx Tuberculosis: No Hx Dementia: No Hx HIV: No Additional medical history: FIBROIDS. CHRONIC BACK PAIN. Tachycardia. gastroparesis - Surgical History Past Surgical History?: Yes Hx Coronary Stent: No Hx Open Heart Surgery: No Hx Pacemaker: No Hx Internal Defibrillator: No Hx Cholecystectomy: Yes Hx Appendectomy: No Hx Breast Surgery: No Additional Surgical History: rotator cuff - Social History Smoking Status: Never Smoker Substance Use Type: None - Medications Home Medications: Home Medications Medication Instructions Recorded Confirmed Last Taken Type Gabapentin [Neurontin] 300 mg PO DAILY 1101/23/16 11/17/14 History Morphine [Morphine TAB] 30 mg PO DAILY 12/30/13 01/23/16 01/07/16 History Lisinopril [Zestril TAB] 20 mg PO QDAY #30 tablet 06/20/16 Unknown Rx levETIRAcetam [Keppra TAB] 1,000 mg PO BID #60 tab 06/20/16 Unknown Rx levETIRAcetam [Keppra TAB] 500 mg PO BID #60 tablet 06/20/16 Unknown Rx amLODIPine [Norvasc] 5 mg PO DAILY #30 tab 08/13/16 Unknown Rx Ondansetron [Zofran ODT TAB] 8 mg PO Q8HR PRN #12 tab.rapdis 08/14/16 Unknown Rx Morphine ER [Ms Contin ER] 30 mg PO QDAY #5 tablet 08/27/16 Unknown Rx Ondansetron [Zofran Odt] 4 mg PO Q6H PRN #10 tab.rapdis 08/27/16 Unknown Rx metroNIDAZOLE [Flagyl] 500 mg PO Q8HR #30 tablet 08/27/16 Unknown Rx ED Physical Exam - General Limitations: No Limitations General appearance: alert, in no apparent distress - Head Head exam: Present: atraumatic, normocephalic - Eye Eye exam: Present: normal appearance. Absent: scleral icterus - ENT ENT exam: Present: mucous membranes moist - Neck Neck exam: Present: normal inspection - Respiratory Respiratory exam: Present: normal lung sounds bilaterally. Absent: respiratory distress - Cardiovascular Cardiovascular Exam: Present: regular rate, normal rhythm. Absent: systolic murmur, diastolic murmur, rubs, gallop - GI/Abdominal GI/Abdominal exam: Present: soft, normal bowel sounds. Absent: distended, tenderness, guarding, rebound, rigid, organomegaly, mass - Extremities Exam Extremities exam: Present: normal inspection - Back Exam Back exam: Present: normal inspection. Absent: CVA tenderness (R), CVA tenderness (L) - Neurological Exam Neurological exam: Present: alert, oriented X3, CN II-XII intact. Absent: motor sensory deficit - Psychiatric Psychiatric exam: Present: normal affect, normal mood - Skin Skin exam: Present: warm, dry, intact, normal color. Absent: rash ED Course Vital Signs 08/27/16 08/27/16 01:37 07:35 Temperature 98.4 F Pulse Rate 114 H 95 H Respiratory 18 18 Rate Blood Pressure 147/104 Blood Pressure 140/93 [Left] O2 Sat by Pulse 100 98 Oximetry - Reevaluation(s) Reevaluation #1: Patient presents to the emergency department for recurrent symptoms. She has not followed up with a bead forming machine set up operator or been referred. She is requesting that I renew her morphine without coordinating her care with the primary care physician. I've explained we cannot do that except for a few pills. She must see her primary care physician. She is referred to GI. She does not need reimaging as a recent CT showed evidence of gastroenteritis. I will order C. difficile studies and place her empirically on Flagyl. Further evaluation as an outpatient is indicated. She does not require any other emergency department workup at this time in my opinion other than the standard stool studies which I will order now. 08/27/16 08:49 08/27/16 08:50 08/27/16 08:57 ED Medical Decision Making - Lab Data Result diagrams: 08/27/16 01:55 08/27/16 01:55 Laboratory Results - last 24 hr 08/27/16 08/27/16 08/27/16 01:55 01:55 07:16 WBC 7.3 RBC 5.02 Hgb 14.6 H Hct 44.4 H MCV 89 MCH 29 MCHC 33 RDW 14.5 Plt Count 430 Lymph % (Auto) 35.5 H [place] % (Auto) 7.3 Eos % (Auto) 0.8 Baso % (Auto) 0.3 Lymph # 2.6 Ceiba # 0.5 Eos # 0.1 Baso # 0.0 Seg Neutrophils % 56.1 Seg Neutrophils # 4.1 Sodium 138 Potassium 3.1 L Chloride 98.0 Carbon Dioxide 23 Anion Gap 20 BUN 21 H Creatinine 0.5 L Estimated GFR > 60 BUN/Creatinine Ratio 42.00 Glucose 152 H Calcium 9.6 Total Bilirubin 0.60 AST 18 ALT 37 Alkaline Phosphatase 100 Total Protein 9.4 H Albumin 4.3 Albumin/Globulin Ratio 0.8 Lipase 36 Urine Color Yellow Urine Turbidity Clear Urine pH 6.0 Ur Specific [place] 1.016 Urine Protein 100 mg/dl Urine Glucose (UA) Neg Urine Ketones 20 Urine Blood Neg Urine Nitrite Neg Urine Bilirubin Neg Urine Urobilinogen < 2.0 Ur Leukocyte Esterase Tr Urine WBC (Auto) 3.0 Urine RBC (Auto) 3.0 U Epithel Cells (Auto) 3.0 Urine Mucus 1+ Laboratory Results - last 24 hr 08/27/16 08/27/16 08/27/16 01:55 01:55 07:16 WBC 7.3 RBC 5.02 Hgb 14.6 H Hct 44.4 H MCV 89 MCH 29 MCHC 33 RDW 14.5 Plt Count 430 Lymph % (Auto) 35.5 H [place] % (Auto) 7.3 Eos % (Auto) 0.8 Baso % (Auto) 0.3 Lymph # 2.6 Ce[place] # 0.5 Eos # 0.1 Baso # 0.0 Seg Neutrophils % 56.1 Seg Neutrophils # 4.1 Sodium 138 Potassium 3.1 L Chloride 98.0 Carbon Dioxide 23 Anion Gap 20 BUN 21 H Creatinine 0.5 L Estimated GFR > 60 BUN/Creatinine Ratio 42.00 Glucose 152 H Calcium 9.6 Total Bilirubin 0.60 AST 18 ALT 37 Alkaline Phosphatase 100 Total Protein 9.4 H Albumin 4.3 Albumin/Globulin Ratio 0.8 Lipase 36 Urine Color Yellow Urine Turbidity Clear Urine pH 6.0 Ur Specific [place] 1.016 Urine Protein 100 mg/dl Urine Glucose (UA) Neg Urine Ketones 20 Urine Blood Neg Urine Nitrite Neg Urine Bilirubin Neg Urine Urobilinogen < 2.0 Ur Leukocyte Esterase Tr Urine WBC (Auto) 3.0 Urine RBC (Auto) 3.0 U Epithel Cells (Auto) 3.0 Urine Mucus 1+ Critical care attestation.: If time is entered above; I have spent that time in minutes in the direct care of this critically ill patient, excluding procedure time. ED Disposition Clinical Impression: Gastroenteritis, Hypokalemia Chronic pain Qualifiers: Chronic pain type: chronic pain syndrome Qualified Code(s): G89.4 - Chronic pain syndrome Disposition: DC-01 TO HOME OR SELFCARE Is pt being admited?: No Does the pt Need Aspirin: No Condition: Stable Instructions: Abdominal Pain (ED), Hypokalemia (ED), Chronic Pain (ED) Additional Instructions: See your primary care provider concerning her chronic morphine management. I have given you a referral to a bead forming machine set up operator. Return any acute change or problem. Stool studies will be sent today if you're able. Otherwise follow-up with your referral physicians for this. Prescriptions: metroNIDAZOLE [Flagyl] 500 mg PO Q8HR #30 tablet Morphine ER [Ms Contin ER] 30 mg PO QDAY #5 tablet Ondansetron [Zofran Odt] 4 mg PO Q6H PRN #10 tab.rapdis PRN Reason: Nausea Referrals: PRIMARY CARE, [Primary Care Provider] - 24 Hours [facility] [Provider Group] - 2-3 Days Time of Disposition: 08:56
[2016-08-27] MEDS ORDERED: MORPHINE IV ONE (08:59)
[2016-08-27] MEDS ORDERED: MORPHINE ONE (09:05)
[2016-08-27 09:16] VITALS: BP 143/80
== END 2016-08-27 09:31 | disposition home or self-care (01) ==
LOC: ED 20:25
DX: K52.9 Noninfective gastroenteritis and colitis, unspecified (principal); E87.6 Hypokalemia; I10 Essential (primary) hypertension; J45.909 Unspecified asthma, uncomplicated; Z88.6 Allergy status to analgesic agent; Z88.8 Allergy status to other drugs, medicaments and biological substances; Z86.73 Personal history of transient ischemic attack (TIA), and cerebral infarction without residual deficits
CPT/HCPCS: 36415; 80053; 81001; 83690; 85025; 87045; 87493; 96361; 96374; 96375; 99283; J2270; J2405; J7030; 87186

== ENCOUNTER 2016-09-01 08:41 | Emergency (ER) | payer MEDICARE ==
[2016-09-01 09:32] LABS: Anion Gap 21 mmol/L; BUN/Creatinine Ratio 23.33; Blood Urea Nitrogen 14 mg/dL (7-17); Calcium 9.8 mg/dL (8.4-10.2); Carbon Dioxide 24 mmol/L (22-30); Chloride 97.6 mmol/L (98-107); Glucose 151 mg/dL (65-100); Potassium 3.2 mmol/L (3.6-5.0); Sodium 139 mmol/L (137-145)
[2016-09-01 09:37] LABS: Bilirubin,Urine NEG (Negative); Blood,Urine NEG (Negative); Ketones,Urine TR mg/dL (Negative); Leukocyte Esterase,Urine NEG (Negative); Nitrite,Urine NEG (Negative); Protein,Urine >500 mg/dL (Negative); Urobilinogen,Urine < 2.0 mg/dL (<2.0)
[2016-09-01 09:37] LABS: Basophils % (Auto) 0.3 % (0.0-1.8); Hemoglobin 14.8 gm/dl (10.1-14.3); Mean Corpuscular HGB Conc 34 % (30-34); Mean Corpuscular Hemoglobin 30 pg (28-32); Mean Corpuscular Volume 86 fl (79-97); Platelet Count 379 K/mm3 (140-440); Red Blood Count 4.98 M/mm3 (3.65-5.03); Red Cell Distribution Width 13.8 % (13.2-15.2); White Blood Count 5.3 K/mm3 (4.5-11.0)
[2016-09-01] MEDS ORDERED: ZOFRAN IV ONE (13:45)
[2016-09-01] MEDS ORDERED: MORPHINE IV ONE ×2 (13:45→16:54)
--- NOTE | 2016-09-01 13:47 | Emergency Department Report ---
HPI - General Chief Complaint: Nausea/Vomiting/Diarrhea Time Seen by Provider: 09/01/16 13:33 - HPI HPI: This is a 51-year-old Afro[place]Citizen Of [place] female presents to the emergency department by EMS from home with complaint of a 2 week history of nausea, vomiting, diarrhea. More recently she started to get some upper abdominal discomfort secondary, most likely, to that vomiting. She says she vomits about 20 times each day and every time that she vomits she has some loose stool as well. She tried some Imodium but has been unable to keep anything down. She has a past medical history of CVA, hypertension, asthma, seizures, chronic back pains and gastroparesis. Primary care physician is Dr. David Bennett. 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 No recent travel or sick contacts at home. ED Past Medical Hx - Past Medical History Hx Hypertension: Yes Hx CVA: Yes Hx Heart Attack/AMI: No Hx Congestive Heart Failure: No Hx Diabetes: No Hx Deep Vein Thrombosis: No Hx Pulmonary Embolism: No Hx Liver Disease: No Hx Renal Disease: No Hx Sickle Cell Disease: No Hx Arthritis: No Hx Seizures: Yes Hx Kidney Stones: No Hx Asthma: Yes Hx COPD: No Hx Tuberculosis: No Hx Dementia: No Hx HIV: No Additional medical history: FIBROIDS. CHRONIC BACK PAIN. Tachycardia. gastroparesis - Surgical History Hx Coronary Stent: No Hx Open Heart Surgery: No Hx Pacemaker: No Hx Internal Defibrillator: No Hx Cholecystectomy: Yes Hx Appendectomy: No Hx Breast Surgery: No Additional Surgical History: rotator cuff - Social History Smoking Status: Never Smoker Substance Use Type: None - Medications Home Medications: Home Medications Medication Instructions Recorded Confirmed Last Taken Type Gabapentin [Neurontin] 300 mg PO DAILY 12/30/13 01/23/16 11/17/14 History Morphine [Morphine TAB] 30 mg PO DAILY 12/30/13 01/23/16 01/07/16 History Lisinopril [Zestril TAB] 20 mg PO QDAY #30 tablet 06/20/16 Unknown Rx levETIRAcetam [Keppra TAB] 1,000 mg PO BID #60 tab 06/20/16 Unknown Rx levETIRAcetam [Keppra TAB] 500 mg PO BID #60 tablet 06/20/16 Unknown Rx amLODIPine [Norvasc] 5 mg PO DAILY #30 tab 08/13/16 Unknown Rx Ondansetron [Zofran ODT TAB] 8 mg PO Q8HR PRN #12 tab.rapdis 08/14/16 Unknown Rx Morphine ER [Ms Contin ER] 30 mg PO QDAY #5 tablet 08/27/16 Unknown Rx metroNIDAZOLE [Flagyl] 500 mg PO Q8HR #30 tablet 08/27/16 Unknown Rx Ondansetron [Zofran Odt] 4 mg PO Q6H PRN #10 tab.rapdis 09/01/16 Unknown Rx ED Review of Systems ROS: Stated complaint: FLU SYMPTOMS Other details as noted in HPI Comment: All other systems reviewed and negative Constitutional: denies: chills, fever Eyes: denies: eye pain, eye discharge, vision change ENT: denies: ear pain, throat pain Respiratory: denies: cough, shortness of breath, wheezing Cardiovascular: denies: chest pain, palpitations Gastrointestinal: abdominal pain, nausea, vomiting, diarrhea Genitourinary: denies: urgency, dysuria, discharge Musculoskeletal: denies: back pain, joint swelling, arthralgia Skin: denies: rash, lesions Neurological: denies: headache, weakness, paresthesias Physical Exam - Physical Exam Vital Signs: Vital Signs 09/01/16 08:46 Temperature 98.9 F Pulse Rate 121 H Respiratory 22 Rate Blood Pressure 139/97 O2 Sat by Pulse 100 Oximetry Physical Exam: GENERAL: The patient is well-developed well-nourished. HEENT: Normocephalic. Atraumatic. Extraocular motions are intact. Patient has moist mucous membranes. Pupils equal reactive to light bilaterally. NECK: Supple. Trachea is midline. CHEST/LUNGS: Clear to auscultation. There is no respiratory distress noted. HEART/CARDIOVASCULAR: Regular. There is mild tachycardia. There is no gallop rub or murmur. ABDOMEN: Abdomen is soft. Mild generalized tenderness to palpation of the abdomen. No guarding or rebound tenderness. Patient has normal bowel sounds. There is no abdominal distention. SKIN: Skin is warm and dry. NEURO: The patient is awake, alert, and oriented. The patient is cooperative. The patient has no focal neurologic deficits. The patient has normal speech. MUSCULOSKELETAL: There is no tenderness or deformity. There is no limitation range of motion. There is no evidence of acute injury. ED Course Vital Signs 09/01/16 08:46 Temperature 98.9 F Pulse Rate 121 H Respiratory 22 Rate Blood Pressure 139/97 O2 Sat by Pulse 100 Oximetry ED Medical Decision Making - Lab Data Result diagrams: 09/01/16 08:59 09/01/16 08:59 - Radiology Data Radiology results: image reviewed interpreted by me: Abdominal x-ray shows nonspecific nonobstructive bowel gas. - Medical Decision Making 51 year old female presents to the emergency department with complaint of a 2 week history of nausea and vomiting and abdominal discomfort. She has a history of gastroparesis. She also has a history of being seen at [facility] for the same symptoms including at the end of July and 5 days ago as well. Each time the patient has been given referrals for gastric urology and she has yet to follow up. Labs are mostly unremarkable other than some hypokalemia. It was replaced both IV and by mouth. She was given a dose of pain medication and IV fluid resuscitation. Abdominal x-ray does not show any acute process. She has already had a CT of the abdomen and pelvis within the last few weeks that showed more signs of gastroenteritis and there was no signs of obstruction or infection at that time. Vital signs stable could being afebrile. She had some mild tachycardia but that has improved with IV fluid resuscitation and pain control. The patient appears safe for discharge home at this time. Once again she was encouraged to follow-up with her primary care doctor, Dr. David Bennett, as well as the referral for gastroenterology. She will return to the ER for any worsening of her symptoms, intractable vomiting, or any acute distress. - Differential Diagnosis gastroenteritis, gastroparesis, bowel obstruction, gastritis Critical Care Time: No Critical care attestation.: If time is entered above; I have spent that time in minutes in the direct care of this critically ill patient, excluding procedure time. ED Disposition Clinical Impression: Nausea and vomiting Qualifiers: Vomiting type: unspecified Vomiting Intractability: non-intractable Qualified Code(s): R11.2 - Nausea with vomiting, unspecified Abdominal pain Qualifiers: Abdominal location: unspecified location Qualified Code(s): R10.9 - Unspecified abdominal pain Disposition: -01 TO HOME OR SELFCARE Is pt being admited?: No Condition: Stable Instructions: Acute Nausea and Vomiting (ED), Abdominal Pain (ED) Additional Instructions: Please follow-up with your primary care doctor in the next few days. It is also imperative that you follow-up with Gastroenterology as soon as possible. I 've given you a referral for Dr. Mohan. Return to the emergency department with any intractable vomiting, worsening of her symptoms or any acute distress. Prescriptions: Ondansetron [Zofran Odt] 4 mg PO Q6H PRN #10 tab.rapdis PRN Reason: Nausea Referrals: DAGO MOHAN MD [Staff Physician] - 3-5 Days CATHLEEN BENNETT MD [Staff Physician] - 3-5 Days Time of Disposition: 16:22
[2016-09-01] MEDS ORDERED: PROTONIX IV ONE (14:05)
[2016-09-01] MEDS ORDERED: PEPCID IV ONE (14:41)
[2016-09-01] MEDS: KCL 10MEQ/100ML 10 MEQ/100 ML BAG IV SCH ×2 (15:12→16:57)
[2016-09-01] MEDS ORDERED: NACL 0.9% 500 ML 500 ML ONE (15:15)
--- NOTE | 2016-09-01 16:08 | XRay Report ---
FINAL REPORT PROCEDURE: XR ABDOMEN 2V TECHNIQUE: Abdominal series, including supine and upright AP views. HISTORY: Abdominal pain COMPARISON: No prior studies are available for comparison. FINDINGS: Nonobstructive bowel gas pattern. Clips overlie the right abdomen. Screws overlie the left pelvis. Linear lucency is seen overlying the left L1 transverse process, which may be related to prior fracture. No abnormal calcifications are seen. IMPRESSION: Nonobstructive bowel gas pattern. Possible left L1 transverse process fracture, of uncertain chronicity.
[2016-09-01] MEDS ORDERED: K-DUR PO ONE (16:54)
[2016-09-01 17:58] VITALS: BP 123/77
== END 2016-09-01 17:45 | disposition home or self-care (01) ==
LOC: ED 08:41
DX: R11.2 Nausea with vomiting, unspecified (principal); R10.10 Upper abdominal pain, unspecified; I10 Essential (primary) hypertension; Z86.73 Personal history of transient ischemic attack (TIA), and cerebral infarction without residual deficits; J45.909 Unspecified asthma, uncomplicated; G89.29 Other chronic pain; Z88.1 Allergy status to other antibiotic agents; Z88.6 Allergy status to analgesic agent; Z88.8 Allergy status to other drugs, medicaments and biological substances
CPT/HCPCS: 36415; 74020; 80048; 81001; 85025; 96374; 96375; 96376; 99284; J2270; J2405; J3480; J7040

== ENCOUNTER 2017-03-23 10:32 | Emergency (ER) | payer MEDICARE ==
--- NOTE | 2017-03-23 11:37 | Emergency Department Report ---
ED ENT HPI - General Chief complaint: Sore Throat Stated complaint: STREP THROAT Time Seen by Provider: 03/23/17 11:35 Source: patient Mode of arrival: Ambulatory Limitations: No Limitations - History of Present Illness Initial comments: 51-year-old female past medical history none presents with complaint of 2-3 days of sore throat. Patient states her grandchildren were diagnosed with strep throat this week. Patient is awake alert and oriented 3 not in acute distress. States her throat is sore. Able to tolerate fluids but has some difficulty swallowing solids. Speaking in full sentences no trismus no drooling. Denies cough. Denies rash. Denies any urinary frequency or foul- smelling urine. Denies abdominal pain or chest pain. MD complaint: sore throat Onset/Timin -: days(s) Location: throat Severity scale (0 -10): 6 Quality: aching Consistency: constant Improves with: none Worsens with: none Associated Symptoms: sore throat - Related Data Home Medications Medication Instructions Recorded Confirmed Last Taken Gabapentin [Neurontin] 300 mg PO DAILY 12/30/13 01/23/16 11/17/14 Morphine [Morphine TAB] 30 mg PO DAILY 12/30/13 01/23/16 01/07/16 Previous Rx's Medication Instructions Recorded Last Taken Type Lisinopril [Zestril TAB] 20 mg PO QDAY #30 tablet 06/20/16 Unknown Rx levETIRAcetam [Keppra TAB] 1,000 mg PO BID #60 tab 06/20/16 Unknown Rx levETIRAcetam [Keppra TAB] 500 mg PO BID #60 tablet 06/20/16 Unknown Rx amLODIPine [Norvasc] 5 mg PO DAILY #30 tab 08/13/16 Unknown Rx Ondansetron [Zofran ODT TAB] 8 mg PO Q8HR PRN #12 tab.rapdis 08/14/16 Unknown Rx Morphine ER [Ms Contin ER] 30 mg PO QDAY #5 tablet 08/27/16 Unknown Rx metroNIDAZOLE [Flagyl] 500 mg PO Q8HR #30 tablet 08/27/16 Unknown Rx Ondansetron [Zofran Odt] 4 mg PO Q6H PRN #10 tab.rapdis 09/01/16 Unknown Rx Acetaminophen [Acetaminophen TAB] 500 mg PO Q6HR PRN #30 tablet 03/23/17 Unknown Rx Dextromethorphan/Benzocaine 1 each PO Q4H PRN #1 box 03/23/17 Unknown Rx [Cepacol Sorethroat-Cough Sravani] Allergies Allergy/AdvReac Type Severity Reaction Status Date / Time acetaminophen [From Percocet] Allergy Unknown Verified 03/23/17 12:48 oxycodone HCl [From Percocet] Allergy Unknown Verified 03/23/17 12:48 aspirin AdvReac Vomiting Verified 03/23/17 12:48 ibuprofen [From Motrin] AdvReac Vomiting Verified 03/23/17 12:48 ED Dental HPI - General Chief complaint: Sore Throat Stated complaint: STREP THROAT Time Seen by Provider: 03/23/17 11:35 Source: patient Mode of arrival: Ambulatory Limitations: No Limitations - Related Data Home Medications Medication Instructions Recorded Confirmed Last Taken Gabapentin [Neurontin] 300 mg PO DAILY 12/30/13 01/23/16 11/17/14 Morphine [Morphine TAB] 30 mg PO DAILY 12/30/13 01/23/16 01/07/16 Previous Rx's Medication Instructions Recorded Last Taken Type Lisinopril [Zestril TAB] 20 mg PO QDAY #30 tablet 06/20/16 Unknown Rx levETIRAcetam [Keppra TAB] 1,000 mg PO BID #60 tab 06/20/16 Unknown Rx levETIRAcetam [Keppra TAB] 500 mg PO BID #60 tablet 06/20/16 Unknown Rx amLODIPine [Norvasc] 5 mg PO DAILY #30 tab 08/13/16 Unknown Rx Ondansetron [Zofran ODT TAB] 8 mg PO Q8HR PRN #12 tab.rapdis 08/14/16 Unknown Rx Morphine ER [Ms Contin ER] 30 mg PO QDAY #5 tablet 08/27/16 Unknown Rx metroNIDAZOLE [Flagyl] 500 mg PO Q8HR #30 tablet 08/27/16 Unknown Rx Ondansetron [Zofran Odt] 4 mg PO Q6H PRN #10 tab.rapdis 09/01/16 Unknown Rx Acetaminophen [Acetaminophen TAB] 500 mg PO Q6HR PRN #30 tablet 03/23/17 Unknown Rx Dextromethorphan/Benzocaine 1 each PO Q4H PRN #1 box 02/04/18 Unknown Rx [Cepacol Sorethroat-Cough Sravani] Allergies Allergy/AdvReac Type Severity Reaction Status Date / Time acetaminophen [From Percocet] Allergy Unknown Verified 03/23/17 12:48 oxycodone HCl [From Percocet] Allergy Unknown Verified 03/23/17 12:48 aspirin AdvReac Vomiting Verified 03/23/17 12:48 ibuprofen [From Motrin] AdvReac Vomiting Verified 03/23/17 12:48 ED Review of Systems ROS: Stated complaint: STREP THROAT Other details as noted in HPI Constitutional: denies: chills, fever Eyes: denies: eye pain, eye discharge, vision change ENT: throat pain. denies: ear pain Respiratory: denies: cough, shortness of breath, wheezing Cardiovascular: denies: chest pain, palpitations Endocrine: no symptoms reported Gastrointestinal: denies: abdominal pain, nausea, diarrhea Genitourinary: denies: urgency, dysuria, discharge Musculoskeletal: denies: back pain, joint swelling, arthralgia Skin: denies: rash, lesions Neurological: denies: headache, weakness, paresthesias Psychiatric: denies: anxiety, depression Hematological/Lymphatic: denies: easy bleeding, easy bruising ED Past Medical Hx - Past Medical History Previous Medical History?: Yes Hx Hypertension: Yes Hx CVA: Yes Hx Heart Attack/AMI: No Hx Congestive Heart Failure: No Hx Diabetes: No Hx Deep Vein Thrombosis: No Hx Pulmonary Embolism: No Hx Liver Disease: No Hx Renal Disease: No Hx Sickle Cell Disease: No Hx Arthritis: No Hx Seizures: Yes Hx Kidney Stones: No Hx Asthma: Yes Hx COPD: No Hx Tuberculosis: No Hx Dementia: No Hx HIV: No Additional medical history: FIBROIDS. CHRONIC BACK PAIN. Tachycardia. gastroparesis - Surgical History Past Surgical History?: Yes Hx Coronary Stent: No Hx Open Heart Surgery: No Hx Pacemaker: No Hx Internal Defibrillator: No Hx Cholecystectomy: Yes Hx Appendectomy: No Hx Breast Surgery: No Additional Surgical History: rotator cuff - Social History Smoking Status: Never Smoker Substance Use Type: None - Medications Home Medications: Home Medications Medication Instructions Recorded Confirmed Last Taken Type Gabapentin [Neurontin] 300 mg PO DAILY 12/30/13 01/23/16 11/17/14 History Morphine [Morphine TAB] 30 mg PO DAILY 12/30/13 01/23/16 01/07/16 History Lisinopril [Zestril TAB] 20 mg PO QDAY #30 tablet 06/20/16 Unknown Rx levETIRAcetam [Keppra TAB] 1,000 mg PO BID #60 tab 06/20/16 Unknown Rx levETIRAcetam [Keppra TAB] 500 mg PO BID #60 tablet 06/20/16 Unknown Rx amLODIPine [Norvasc] 5 mg PO DAILY #30 tab 08/13/16 Unknown Rx Ondansetron [Zofran ODT TAB] 8 mg PO Q8HR PRN #12 tab.rapdis 08/14/16 Unknown Rx Morphine ER [Ms Contin ER] 30 mg PO QDAY #5 tablet 08/27/16 Unknown Rx metroNIDAZOLE [Flagyl] 500 mg PO Q8HR #30 tablet 08/27/16 Unknown Rx Ondansetron [Zofran Odt] 4 mg PO Q6H PRN #10 tab.rapdis 09/01/16 Unknown Rx Acetaminophen [Acetaminophen TAB] 500 mg PO Q6HR PRN #30 tablet 03/23/17 Unknown Rx Dextromethorphan/Benzocaine 1 each PO Q4H PRN #1 box 03/23/17 Unknown Rx [Cepacol Sorethroat-Cough Sravani] ED Physical Exam - General Limitations: No Limitations General appearance: alert, in no apparent distress - Head Head exam: Present: atraumatic, normocephalic - Eye Eye exam: Present: normal appearance, PERRL, EOMI - ENT ENT exam: Present: mucous membranes moist - Expanded ENT Exam Expanded Throat exam: Positive: tonsillar erythema (some tonsillar erythema no visible exudates no peritonsillar abscess.) - Neck Neck exam: Present: normal inspection, full ROM - Respiratory Respiratory exam: Present: normal lung sounds bilaterally. Absent: respiratory distress - Cardiovascular Cardiovascular Exam: Present: regular rate, normal rhythm. Absent: systolic murmur, diastolic murmur, rubs, gallop - GI/Abdominal GI/Abdominal exam: Present: soft, normal bowel sounds - Extremities Exam Extremities exam: Present: normal inspection - Back Exam Back exam: Present: normal inspection - Neurological Exam Neurological exam: Present: alert, oriented X3 - Psychiatric Psychiatric exam: Present: normal affect, normal mood - Skin Skin exam: Present: warm, dry, intact, normal color. Absent: rash ED Course Vital Signs 03/23/17 03/23/17 10:38 10:41 Temperature 98.6 F 98.6 F Pulse Rate 122 H 122 H Respiratory 16 16 Rate Blood Pressure 121/82 Blood Pressure 121/82 [Right] O2 Sat by Pulse 97 97 Oximetry ED Medical Decision Making - Medical Decision Making A/P: Pharyngitis 1-although strep swab is negative patient did have positive contact with strep this week, patient treated empirically with Bicillin 2-decrease in tachycardia with oral and IV hydration. I discussed this with Dr. Gómez before discharge, patient stable for discharge 3-Tylenol when necessary for fever, throat lozenges when necessary 4- I advised patient to return to the ED for any persistent fevers and chills nausea and vomiting inability to tolerate by mouth. Patient agreed to do so. 5-follow-up with primary care doctor Critical care attestation.: If time is entered above; I have spent that time in minutes in the direct care of this critically ill patient, excluding procedure time. ED Disposition Clinical Impression: Pharyngitis Qualifiers: Pharyngitis/tonsillitis etiology: unspecified etiology Qualified Code(s): J02.9 - Acute pharyngitis, unspecified Disposition: - TO HOME OR SELFCARE Is pt being admited?: No Does the pt Need Aspirin: No Condition: Stable Instructions: Pharyngitis (ED), Strep Throat (ED) Prescriptions: Acetaminophen [Acetaminophen TAB] 500 mg PO Q6HR PRN #30 tablet PRN Reason: Fever Dextromethorphan/Benzocaine [Cepacol Sorethroat-Cough Sravani] 1 each PO Q4H PRN #1 box PRN Reason: Sore Throat Referrals: IRVING BENNETT DR [Other] - 3-5 Days Forms: Work/School Release Form(ED) Time of Disposition: 13:38
[2017-03-23] MEDS ORDERED: NACL 0.9% 1000 ML 1,000 ML IV ONE (12:05)
[2017-03-23] MEDS ORDERED: BICILLIN L-A IM ONE (12:06)
[2017-03-23] MEDS ORDERED: DECADRON IV ONE (12:06)
[2017-03-23] MEDS ORDERED: TORADOL IV ONE (12:45)
[2017-03-23] MEDS ORDERED: TORADOL ONE (12:47)
[2017-03-23 13:32] VITALS: BP 166/79
== END 2017-03-23 14:07 | disposition home or self-care (01) ==
LOC: ED 10:32
DX: J02.9 Acute pharyngitis, unspecified (principal); I10 Essential (primary) hypertension; J45.909 Unspecified asthma, uncomplicated; Z90.49 Acquired absence of other specified parts of digestive tract; Z88.6 Allergy status to analgesic agent
CPT/HCPCS: 87116; 87430; 96361; 96372; 96374; 96375; 99283; J0561; J1100; J1885; J7030

== ENCOUNTER 2018-05-13 12:54 | Emergency (ER) | payer MEDICARE ==
[2018-05-13 13:03] VITALS: BP 143/92
--- NOTE | 2018-05-13 13:04 | Emergency Department Report ---
Blank Doc - Documentation Documentation: This is a 52-year-old female that presents with dizziness and decreased energy. Stated has a headache. Stated has been out of Keppra medications. Patient stated she feels like SZ symptoms will occur. Denies any facial drooping or neuro deficits. Denies one sided weakness. This initial assessment/diagnostic orders/clinical plan/treatment(s) is/are subject to change based on patient's health status, clinical progression and re- assessment by fellow clinical providers in the ED. Further treatment and workup at subsequent clinical providers discretion. Patient/guardians urged not to elope from the ED as their condition may be serious if not clinically assessed and managed. Initial orders include: 1- Patient sent to MAIN for further evaluation and treatment 2- labs 3- CT head
[2018-05-13 13:50] LABS: Albumin 4.4 g/dL (3.9-5); BUN/Creatinine Ratio 25; Blood Urea Nitrogen 15 mg/dL (7-17); Calcium 9.7 mg/dL (8.4-10.2); Hemolysis Index 155
[2018-05-13 14:03] LABS: Hematocrit 40.1 % (30.3-42.9); Hemoglobin 13.5 gm/dl (10.1-14.3); Mean Corpuscular HGB Conc 34 % (30-34); Mean Corpuscular Volume 87 fl (79-97); Red Blood Count 4.62 M/mm3 (3.65-5.03)
[2018-05-13 14:22] LABS: Alanine Aminotransferase 50 units/L (7-56)
--- NOTE | 2018-05-13 15:18 | Cat Scan Report ---
CT HEAD WITHOUT CONTRAST: HISTORY: Seizure. TECHNIQUE: Sequential 2.5mm CT images. COMPARISON: 08/13/16. FINDINGS: Cerebral Parenchyma: Within normal limits. Cerebellum: Within normal limits. Brainstem: Within normal limits. Ventricles: Normal. Sella: Normal. Extra-axial spaces: Normal. Basal Cisterns: Normal. Intracranial Hemorrhage: None. Midline Shift: None. Calvarium: Normal. Sinuses: Normal. Mastoid Air Cells: Normal. Visualized Orbits: Normal. IMPRESSION: Cranial CT scan within normal limits.
[2018-05-13] MEDS ORDERED: KEPPRA PO ONE (15:37)
--- NOTE | 2018-05-13 15:41 | Emergency Department Report ---
ED Recheck HPI - General Chief Complaint: Neuro Symptoms/Deficit Stated Complaint: SEIZURE MEDS REFILL/SLURR SPEECH Time Seen by Provider: 05/13/18 13:01 Source: patient Mode of arrival: Ambulatory Limitations: No Limitations - History of Present Illness Initial Comments: 52-year-old female with history of seizures presents to the ED requesting refill on Keppra. Patient states she has been out of Keppra 5 days. Normally takes 1500 mg twice a day. Patient says she has not had a seizure in the last 5 days, however she feels the way she usually does befor she has a seizure. Neurologist: Dr Mahesh MCRAE Complaint: medication refill request (keppra) -: days(s) (5) Returns Today for: request for prescription Symptoms Since Prior Visit: no new symptoms - Related Data Home Medications Medication Instructions Recorded Confirmed Last Taken Gabapentin [Neurontin] 300 mg PO DAILY 12/30/13 01/23/16 11/17/14 Morphine [Morphine TAB] 30 mg PO DAILY 12/30/13 01/23/16 01/07/16 Previous Rx's Medication Instructions Recorded Last Taken Type Lisinopril [Zestril TAB] 20 mg PO QDAY #30 tablet 06/20/16 Unknown Rx amLODIPine [Norvasc] 5 mg PO DAILY #30 tab 08/13/16 Unknown Rx Ondansetron [Zofran ODT TAB] 8 mg PO Q8HR PRN #12 tab.rapdis 08/14/16 Unknown Rx Morphine ER [Ms Contin ER] 30 mg PO QDAY #5 tablet 08/27/16 Unknown Rx metroNIDAZOLE [Flagyl] 500 mg PO Q8HR #30 tablet 08/27/16 Unknown Rx Ondansetron [Zofran Odt] 4 mg PO Q6H PRN #10 tab.rapdis 09/01/16 Unknown Rx Acetaminophen [Acetaminophen TAB] 500 mg PO Q6HR PRN #30 tablet 03/23/17 Unknown Rx Dextromethorphan/Benzocaine 1 each PO Q4H PRN #1 box 03/23/17 Unknown Rx [Cepacol Sorethroat-Cough Sravani] levETIRAcetam [Keppra TAB] 1,000 mg PO BID #60 tab 05/13/18 Unknown Rx levETIRAcetam [Keppra TAB] 500 mg PO BID #60 tablet 05/13/18 Unknown Rx Allergies Allergy/AdvReac Type Severity Reaction Status Date / Time acetaminophen [From Percocet] Allergy Unknown Verified 03/23/17 12:48 oxycodone HCl [From Percocet] Allergy Unknown Verified 03/23/17 12:48 aspirin AdvReac Vomiting Verified 03/23/17 12:48 ibuprofen [From Motrin] AdvReac Vomiting Verified 03/23/17 12:48 ED Review of Systems ROS: Stated complaint: SEIZURE MEDS REFILL/SLURR SPEECH Other details as noted in HPI Comment: All other systems reviewed and negative ED Past Medical Hx - Past Medical History Hx Hypertension: Yes Hx CVA: Yes Hx Heart Attack/AMI: No Hx Congestive Heart Failure: No Hx Diabetes: No Hx Deep Vein Thrombosis: No Hx Pulmonary Embolism: No Hx Liver Disease: No Hx Renal Disease: No Hx Sickle Cell Disease: No Hx Arthritis: No Hx Seizures: Yes Hx Kidney Stones: No Hx Asthma: Yes Hx COPD: No Hx Tuberculosis: No Hx Dementia: No Hx HIV: No Additional medical history: FIBROIDS. CHRONIC BACK PAIN. Tachycardia. gastroparesis - Surgical History Hx Coronary Stent: No Hx Open Heart Surgery: No Hx Pacemaker: No Hx Internal Defibrillator: No Hx Cholecystectomy: Yes Hx Appendectomy: No Hx Breast Surgery: No Additional Surgical History: rotator cuff - Social History Smoking Status: Never Smoker Substance Use Type: None - Medications Home Medications: Home Medications Medication Instructions Recorded Confirmed Last Taken Type Gabapentin [Neurontin] 300 mg PO DAILY 12/30/13 01/23/16 11/17/14 History Morphine [Morphine TAB] 30 mg PO DAILY 12/30/13 01/23/16 01/07/16 History Lisinopril [Zestril TAB] 20 mg PO QDAY #30 tablet 06/20/16 Unknown Rx amLODIPine [Norvasc] 5 mg PO DAILY #30 tab 08/13/16 Unknown Rx Ondansetron [Zofran ODT TAB] 8 mg PO Q8HR PRN #12 tab.rapdis 08/14/16 Unknown Rx Morphine ER [Ms Contin ER] 30 mg PO QDAY #5 tablet 08/27/16 Unknown Rx metroNIDAZOLE [Flagyl] 500 mg PO Q8HR #30 tablet 08/27/16 Unknown Rx Ondansetron [Zofran Odt] 4 mg PO Q6H PRN #10 tab.rapdis 09/01/16 Unknown Rx Acetaminophen [Acetaminophen TAB] 500 mg PO Q6HR PRN #30 tablet 03/23/17 Unknown Rx Dextromethorphan/Benzocaine 1 each PO Q4H PRN #1 box 03/23/17 Unknown Rx [Cepacol Sorethroat-Cough Sravani] levETIRAcetam [Keppra TAB] 1,000 mg PO BID #60 tab 05/13/18 Unknown Rx levETIRAcetam [Keppra TAB] 500 mg PO BID #60 tablet 05/13/18 Unknown Rx ED Physical Exam - General Limitations: No Limitations General appearance: alert, in no apparent distress - Head Head exam: Present: atraumatic, normocephalic - Eye Eye exam: Present: normal appearance - ENT ENT exam: Present: mucous membranes moist - Neck Neck exam: Present: normal inspection - Respiratory Respiratory exam: Present: normal lung sounds bilaterally. Absent: respiratory distress - Cardiovascular Cardiovascular Exam: Present: regular rate, normal rhythm - GI/Abdominal GI/Abdominal exam: Absent: distended - Extremities Exam Extremities exam: Present: normal inspection - Neurological Exam Neurological exam: Present: alert, oriented X3, CN II-XII intact, abnormal gait (walks with a cane at baseline). Absent: motor sensory deficit - Psychiatric Psychiatric exam: Present: normal affect, normal mood - Skin Skin exam: Present: warm, dry, intact, normal color ED Course Vital Signs 05/13/18 13:01 Temperature 98.2 F Pulse Rate 104 H Respiratory 18 Rate Blood Pressure 143/92 O2 Sat by Pulse 96 Oximetry Critical care attestation.: If time is entered above; I have spent that time in minutes in the direct care of this critically ill patient, excluding procedure time. ED Disposition Clinical Impression: Medication refill Disposition: DC-01 TO HOME OR SELFCARE Is pt being admited?: No Condition: Stable Instructions: Recurrent Seizures Adult (ED) Prescriptions: levETIRAcetam [Keppra TAB] 1,000 mg PO BID #60 tab levETIRAcetam [Keppra TAB] 500 mg PO BID #60 tablet Referrals: PRIMARY CARE, [Referring] - 3-5 Days Time of Disposition: 15:46
[2018-05-13 16:53] LABS: Basophils % (Manual) 0 % (0.0-1.8); Total Cells Counted 100
[2018-05-13 16:54] LABS: Anisocytosis 1+; Platelet Estimate Consistent w Auto
[2018-05-13 16:57] LABS: Platelet Count 350 K/mm3 (140-440)
== END 2018-05-13 16:06 | disposition home or self-care (01) ==
LOC: ED 12:54
DX: R56.9 Unspecified convulsions (principal); Z76.0 Encounter for issue of repeat prescription; I10 Essential (primary) hypertension
CPT/HCPCS: 36415; 70450; 80053; 85007; 85025

== ENCOUNTER 2018-08-31 22:34 | Emergency (ER) | payer MEDICAID, MEDICARE ==
[2018-09-01] MEDS ORDERED: ULTRAM PO ONE (01:40)
--- NOTE | 2018-09-01 01:45 | Emergency Department Report ---
ED Seizure HPI - General Chief Complaint: Seizure Stated Complaint: HIGH BP Time Seen by Provider: 09/01/18 01:09 Source: patient Mode of arrival: Ambulatory Limitations: No Limitations - History of Present Illness Initial Comments: Mrs. Murguia is a 53 yo female with history of seizure disorder and hypertension who kindly requests medication refill. She had seizures this morning. She has mild frontal headache. No other concerns. She is followed by neurologist Dr. Sage Aragon. Complaint: seizure -: Gradual Witnessed:: No Trauma: No Seizure History: known seizure disorder Place: home Possible Precipitating Event: medication - Related Data Home Medications Medication Instructions Recorded Confirmed Last Taken Gabapentin [Neurontin] 300 mg PO DAILY 12/30/13 01/23/16 11/17/14 Morphine [Morphine TAB] 30 mg PO DAILY 12/30/13 01/23/16 01/07/16 Previous Rx's Medication Instructions Recorded Last Taken Type Lisinopril [Zestril TAB] 20 mg PO QDAY #30 tablet 06/20/16 Unknown Rx amLODIPine [Norvasc] 5 mg PO DAILY #30 tab 08/13/16 Unknown Rx Ondansetron [Zofran ODT TAB] 8 mg PO Q8HR PRN #12 tab.rapdis 08/14/16 Unknown Rx Morphine ER [Ms Contin ER] 30 mg PO QDAY #5 tablet 08/27/16 Unknown Rx metroNIDAZOLE [Flagyl] 500 mg PO Q8HR #30 tablet 08/27/16 Unknown Rx Ondansetron [Zofran Odt] 4 mg PO Q6H PRN #10 tab.rapdis 09/01/16 Unknown Rx Acetaminophen [Acetaminophen TAB] 500 mg PO Q6HR PRN #30 tablet 03/23/17 Unknown Rx Dextromethorphan/Benzocaine 1 each PO Q4H PRN #1 box 03/23/17 Unknown Rx [Cepacol Sorethroat-Cough Sravani] levETIRAcetam [Keppra TAB] 1,000 mg PO BID #60 tab 05/13/18 Unknown Rx levETIRAcetam [Keppra TAB] 500 mg PO BID #60 tablet 05/13/18 Unknown Rx Atenolol [Tenormin] 50 mg PO DAILY 30 Days #30 tab 09/01/18 Unknown Rx levETIRAcetam [Keppra TAB] 1,000 mg PO BID 30 Days #60 tab 09/01/18 Unknown Rx levETIRAcetam [Keppra TAB] 500 mg PO BID 30 Days #60 tablet 09/01/18 Unknown Rx Allergies Allergy/AdvReac Type Severity Reaction Status Date / Time oxycodone HCl [From Percocet] Allergy Unknown Verified 03/23/17 12:48 aspirin AdvReac Vomiting Verified 03/23/17 12:48 ibuprofen [From Motrin] AdvReac Vomiting Verified 03/23/17 12:48 ED Review of Systems ROS: Stated complaint: HIGH BP Other details as noted in HPI Comment: All other systems reviewed and negative Constitutional: denies: fever, malaise Neurological: headache. denies: numbness, paresthesias, confusion ED Past Medical Hx - Past Medical History Previous Medical History?: Yes Hx Hypertension: Yes Hx CVA: Yes (TIA) Hx Heart Attack/AMI: No Hx Congestive Heart Failure: No Hx Diabetes: No Hx Deep Vein Thrombosis: No Hx Pulmonary Embolism: No Hx Liver Disease: No Hx Renal Disease: No Hx Sickle Cell Disease: No Hx Arthritis: No Hx Seizures: Yes Hx Kidney Stones: No Hx Asthma: Yes Hx COPD: No Hx Tuberculosis: No Hx Dementia: No Hx HIV: No Additional medical history: FIBROIDS. CHRONIC BACK PAIN. Tachycardia. gastroparesis - Surgical History Past Surgical History?: Yes Hx Coronary Stent: No Hx Open Heart Surgery: No Hx Pacemaker: No Hx Internal Defibrillator: No Hx Cholecystectomy: Yes Hx Appendectomy: No Hx Breast Surgery: No Additional Surgical History: rotator cuff - Social History Smoking Status: Never Smoker - Medications Home Medications: Home Medications Medication Instructions Recorded Confirmed Last Taken Type Gabapentin [Neurontin] 300 mg PO DAILY 12/30/13 01/23/16 11/17/14 History Morphine [Morphine TAB] 30 mg PO DAILY 12/30/13 01/23/16 01/07/16 History Lisinopril [Zestril TAB] 20 mg PO QDAY #30 tablet 06/20/16 Unknown Rx amLODIPine [Norvasc] 5 mg PO DAILY #30 tab 08/13/16 Unknown Rx Ondansetron [Zofran ODT TAB] 8 mg PO Q8HR PRN #12 tab.rapdis 08/14/16 Unknown Rx Morphine ER [Ms Contin ER] 30 mg PO QDAY #5 tablet 08/27/16 Unknown Rx metroNIDAZOLE [Flagyl] 500 mg PO Q8HR #30 tablet 08/27/16 Unknown Rx Ondansetron [Zofran Odt] 4 mg PO Q6H PRN #10 tab.rapdis 09/01/16 Unknown Rx Acetaminophen [Acetaminophen TAB] 500 mg PO Q6HR PRN #30 tablet 03/23/17 Unknown Rx Dextromethorphan/Benzocaine 1 each PO Q4H PRN #1 box 03/23/17 Unknown Rx [Cepacol Sorethroat-Cough Sravani] levETIRAcetam [Keppra TAB] 1,000 mg PO BID #60 tab 05/13/18 Unknown Rx levETIRAcetam [Keppra TAB] 500 mg PO BID #60 tablet 05/13/18 Unknown Rx Atenolol [Tenormin] 50 mg PO DAILY 30 Days #30 tab 09/01/18 Unknown Rx levETIRAcetam [Keppra TAB] 1,000 mg PO BID 30 Days #60 tab 09/01/18 Unknown Rx levETIRAcetam [Keppra TAB] 500 mg PO BID 30 Days #60 tablet 09/01/18 Unknown Rx ED Physical Exam - General Limitations: No Limitations General appearance: alert, in no apparent distress - Head Head exam: Present: atraumatic, normocephalic - Eye Eye exam: Present: normal appearance - ENT ENT exam: Present: mucous membranes moist - Neck Neck exam: Present: normal inspection, full ROM - Respiratory Respiratory exam: Present: normal lung sounds bilaterally. Absent: respiratory distress, wheezes, rales, rhonchi - Cardiovascular Cardiovascular Exam: Present: regular rate, normal rhythm, normal heart sounds. Absent: systolic murmur, diastolic murmur, rubs, gallop - GI/Abdominal GI/Abdominal exam: Present: soft, normal bowel sounds. Absent: distended, tenderness, guarding - Extremities Exam Extremities exam: Present: normal inspection - Back Exam Back exam: Present: normal inspection - Neurological Exam Neurological exam: Present: alert, oriented X3 - Psychiatric Psychiatric exam: Present: normal affect, normal mood - Skin Skin exam: Present: warm, dry, intact, normal color. Absent: rash ED Course Vital Signs 08/31/18 22:42 Temperature 98.6 F Pulse Rate 99 H Respiratory 16 Rate Blood Pressure 176/104 O2 Sat by Pulse 97 Oximetry ED Medical Decision Making - Medical Decision Making Mrs. Murguia presents with request for medication refill. She received PO keppra load and refill of Atenolol and Keppra. without treatment, HR 81 bpm, BP 151/82 Critical care attestation.: If time is entered above; I have spent that time in minutes in the direct care of this critically ill patient, excluding procedure time. ED Disposition Clinical Impression: Medication refill, Seizure disorder Disposition: - TO HOME OR SELFCARE Is pt being admited?: No Does the pt Need Aspirin: No Condition: Stable Instructions: Women and Epilepsy (ED) Prescriptions: levETIRAcetam [Keppra TAB] 1,000 mg PO BID 30 Days #60 tab levETIRAcetam [Keppra TAB] 500 mg PO BID 30 Days #60 tablet Atenolol [Tenormin] 50 mg PO DAILY 30 Days #30 tab Referrals: ABHI RUIZ MD [Primary Care Provider] - 3-5 Days
[2018-09-01] MEDS ORDERED: KEPPRA PO ONE ×2 (01:55)
[2018-09-01 02:04] VITALS: BP 158/98
== END 2018-09-01 02:08 | disposition home or self-care (01) ==
LOC: ED 22:34
DX: G40.909 Epilepsy, unspecified, not intractable, without status epilepticus (principal); Z76.0 Encounter for issue of repeat prescription; I10 Essential (primary) hypertension; J45.909 Unspecified asthma, uncomplicated; G89.29 Other chronic pain; M54.9 Dorsalgia, unspecified; Z86.73 Personal history of transient ischemic attack (TIA), and cerebral infarction without residual deficits; Z90.49 Acquired absence of other specified parts of digestive tract; Z79.899 Other long term (current) drug therapy; Z88.6 Allergy status to analgesic agent; Z88.8 Allergy status to other drugs, medicaments and biological substances
CPT/HCPCS: 99282

== ENCOUNTER 2018-09-07 21:14 | Emergency (ER) | payer MEDICAID, MEDICARE ==
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
--- NOTE | 2018-09-07 22:57 | XRay Report ---
RIGHT KNEE 3 VIEWS INDICATION / CLINICAL INFORMATION: Pain in right knee after fall. COMPARISON: None available. FINDINGS: BONES and JOINT(S): No acute fracture or subluxation. No significant arthritis. SOFT TISSUES: No significant abnormality. ADDITIONAL FINDINGS: None. IMPRESSION: No acute findings. Signer Name: Christian Frey MD Signed: 09/07/2018 10:53 PM Workstation Name: [id number]
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
[2018-09-08] MEDS ORDERED: NORCO 5/325 PO ONE (00:01)
[2018-09-08] MEDS ORDERED: DELTASONE PO ONE (00:01)
[2018-09-08 04:24] VITALS: BP 139/94
== END 2018-09-08 00:30 | disposition home or self-care (01) ==
LOC: ED 21:14
DX: S86.911A Strain of unspecified muscle(s) and tendon(s) at lower leg level, right leg, initial encounter (principal); I10 Essential (primary) hypertension; J45.909 Unspecified asthma, uncomplicated; G89.29 Other chronic pain; M54.9 Dorsalgia, unspecified; Z86.73 Personal history of transient ischemic attack (TIA), and cerebral infarction without residual deficits; Z90.49 Acquired absence of other specified parts of digestive tract; Z79.899 Other long term (current) drug therapy; Z88.6 Allergy status to analgesic agent; Z88.8 Allergy status to other drugs, medicaments and biological substances; X58.XXXA Exposure to other specified factors, initial encounter; Y93.89 Activity, other specified; Y92.098 Other place in other non-institutional residence as the place of occurrence of the external cause; Y99.8 Other external cause status
CPT/HCPCS: 73562; 99283; J7512

== ENCOUNTER 2018-09-25 01:56 | Emergency (ER) | payer MEDICAID ==
[2018-09-25 02:12] VITALS: BP 159/91
[2018-09-25 02:37] LABS: Basophils % (Auto) 0.4 % (0.0-1.8); Eosinophils % (Auto) 0.5 % (0.0-4.3); Hematocrit 37.7 % (30.3-42.9); Hemoglobin 12.9 gm/dl (10.1-14.3); Lymphocytes # (Auto) 2.5 K/mm3 (1.2-5.4); Lymphocytes % (Auto) 31.2 % (13.4-35.0); Mean Corpuscular HGB Conc 34 % (30-34); Mean Corpuscular Volume 88 fl (79-97); Monocytes # (Auto) 0.4 K/mm3 (0.0-0.8); Monocytes % (Auto) 4.9 % (0.0-7.3); Platelet Count 338 K/mm3 (140-440); Red Blood Count 4.29 M/mm3 (3.65-5.03); Red Cell Distribution Width 14.2 % (13.2-15.2)
[2018-09-25] MEDS ORDERED: TORADOL ONE (02:44)
[2018-09-25] MEDS ORDERED: ZOFRAN ONE (02:44)
[2018-09-25] MEDS ORDERED: TORADOL IV ONE (02:45)
[2018-09-25] MEDS ORDERED: ZOFRAN IV ONE (02:45)
[2018-09-25] MEDS ORDERED: NACL 0.9% 1000 ML 1,000 ML IV ONE (02:51)
[2018-09-25] MEDS ORDERED: PEPCID IV ONE (02:51)
[2018-09-25] MEDS ORDERED: MORPHINE IV ONE (02:54)
[2018-09-25 02:56] LABS: Alanine Aminotransferase 113 units/L (7-56); Albumin 4.3 g/dL (3.9-5); BUN/Creatinine Ratio 35; Blood Urea Nitrogen 21 mg/dL (7-17); Calcium 9.5 mg/dL (8.4-10.2); Hemolysis Index 38
[2018-09-25] MEDS ORDERED: REGLAN ONE (02:58)
--- NOTE | 2018-09-25 03:56 | Emergency Department Report ---
ED Abdominal Pain HPI - General Chief Complaint: Abdominal Pain Stated Complaint: FOOD POISONING Time Seen by Provider: 09/25/18 02:35 Source: patient Mode of arrival: Ambulatory Limitations: No Limitations - History of Present Illness Initial Comments: Patient is a 53-year-old -[place] female with a history of hypertension, seizures, stroke and gastritis who presents to the ED with complaint of acute onset persistent diffuse abdominal pain that radiates with epigastric area with intractable nausea and vomiting and diarrhea for the last 24 hours. Patient admits to eating chicken at a restaurant over 24 hours ago and suspects that the symptoms may have been from eating that meal. Patient states that she has not been able to keep anything down in the last 12 hours because of intractable nausea and vomiting and diarrhea. Patient denies dizziness, chest pain, shortness of breath, abdominal pain, fever, chills, sore throat, cough, shor tness of breath, dysuria, urinary frequency and urgency, vaginal bleeding, vaginal discharge or headache. MD Complaint: abdominal pain, other (Nausea and vomiting, diarrhea) -: Sudden, hour(s) (24) Location: diffuse, epigastric Radiation: epigastric Migration to: no migration Severity: severe Severity scale (0 -10): 8 Quality: cramping, aching, sharp Consistency: constant Improves With: nothing Worsens With: vomiting Context: possible food poisoning Associated Symptoms: denies other symptoms, nausea, vomiting, diarrhea. denies: fever, chills, constipation, dysuria, hematemesis, melena, hematuria, anorexia, syncope, other - Related Data Home Medications Medication Instructions Recorded Confirmed Last Taken Gabapentin [Neurontin] 300 mg PO DAILY 12/30/13 01/23/16 11/17/14 Morphine [Morphine TAB] 30 mg PO DAILY 12/30/13 01/23/16 01/07/16 Previous Rx's Medication Instructions Recorded Last Taken Type Lisinopril [Zestril TAB] 20 mg PO QDAY #30 tablet 06/20/16 Unknown Rx amLODIPine [Norvasc] 5 mg PO DAILY #30 tab 08/13/16 Unknown Rx Ondansetron [Zofran ODT TAB] 8 mg PO Q8HR PRN #12 tab.rapdis 08/14/16 Unknown Rx Morphine ER [Ms Contin ER] 30 mg PO QDAY #5 tablet 08/27/16 Unknown Rx metroNIDAZOLE [Flagyl] 500 mg PO Q8HR #30 tablet 08/27/16 Unknown Rx Ondansetron [Zofran Odt] 4 mg PO Q6H PRN #10 tab.rapdis 09/01/16 Unknown Rx Acetaminophen [Acetaminophen TAB] 500 mg PO Q6HR PRN #30 tablet 03/23/17 Unknown Rx Dextromethorphan/Benzocaine 1 each PO Q4H PRN #1 box 03/23/17 Unknown Rx [Cepacol Sorethroat-Cough Sravani] levETIRAcetam [Keppra TAB] 1,000 mg PO BID #60 tab 05/13/18 Unknown Rx levETIRAcetam [Keppra TAB] 500 mg PO BID #60 tablet 05/13/18 Unknown Rx Atenolol [Tenormin] 50 mg PO DAILY 30 Days #30 tab 09/01/18 Unknown Rx levETIRAcetam [Keppra TAB] 1,000 mg PO BID 30 Days #60 tab 09/01/18 Unknown Rx levETIRAcetam [Keppra TAB] 500 mg PO BID 30 Days #60 tablet 09/01/18 Unknown Rx Acetaminophen [Acetaminophen TAB] 1,000 mg PO Q6HR PRN #30 tablet 09/08/18 Unknown Rx Acetaminophen/Codeine [Tylenol 1 tab PO Q6H PRN #12 tab 09/08/18 Unknown Rx /Codeine # 3 tab] Diclofenac 1% [Diclofenac 1% 1 applicatio TP QID PRN #1 tube 09/08/18 Unknown Rx topical gel] predniSONE [Deltasone] 40 mg PO QDAY 5 Days #10 tab 09/08/18 Unknown Rx Dicyclomine [Bentyl] 20 mg PO Q6H PRN #24 tablet 09/25/18 Unknown Rx Diphenoxylate/Atropine [Lomotil] 1 - 2 tab PO Q4H PRN #15 tablet 09/25/18 Unknown Rx Omeprazole 40 mg PO DAILY #30 capsule. 09/25/18 Unknown Rx Ondansetron [Zofran ODT TAB] 8 mg PO Q8HR PRN #21 tab.amandadis 09/25/18 Unknown Rx Sucralfate [Carafate] 1 gm PO Q6HR #90 tablet 09/25/18 Unknown Rx cephALEXin [Keflex] 500 mg PO Q8HR #30 cap 09/25/18 Unknown Rx raNITIdine HCl [Zantac] 150 mg PO Q12H #30 tablet 09/25/18 Unknown Rx Allergies Allergy/AdvReac Type Severity Reaction Status Date / Time oxycodone HCl [From Percocet] Allergy Unknown Verified 03/23/17 12:48 aspirin AdvReac Vomiting Verified 03/23/17 12:48 ibuprofen [From Motrin] AdvReac Vomiting Verified 03/23/17 12:48 ED Review of Systems ROS: Stated complaint: FOOD POISONING Other details as noted in HPI Comment: All other systems reviewed and negative Constitutional: denies: chills, fever Eyes: denies: eye pain, eye discharge, vision change ENT: denies: ear pain, throat pain Respiratory: denies: cough, shortness of breath, wheezing Cardiovascular: denies: chest pain, palpitations Endocrine: no symptoms reported Gastrointestinal: abdominal pain, nausea, vomiting, diarrhea. denies: constipation, hematemesis, melena, hematochezia Genitourinary: denies: urgency, dysuria, discharge Musculoskeletal: denies: back pain, joint swelling, arthralgia Skin: denies: rash, lesions Neurological: denies: headache, weakness, paresthesias Psychiatric: denies: anxiety, depression Hematological/Lymphatic: denies: easy bleeding, easy bruising ED Past Medical Hx - Past Medical History Previous Medical History?: Yes Hx Hypertension: Yes Hx CVA: Yes (TIA) Hx Heart Attack/AMI: No Hx Congestive Heart Failure: No Hx Diabetes: No Hx Deep Vein Thrombosis: No Hx Pulmonary Embolism: No Hx Liver Disease: No Hx Renal Disease: No Hx Sickle Cell Disease: No Hx Arthritis: No Hx Seizures: Yes Hx Kidney Stones: No Hx Asthma: Yes Hx COPD: No Hx Tuberculosis: No Hx Dementia: No Hx HIV: No Additional medical history: FIBROIDS. CHRONIC BACK PAIN. Tachycardia. gastroparesis - Surgical History Past Surgical History?: Yes Hx Coronary Stent: No Hx Open Heart Surgery: No Hx Pacemaker: No Hx Internal Defibrillator: No Hx Cholecystectomy: Yes Hx Appendectomy: No Hx Breast Surgery: No Additional Surgical History: rotator cuff - Social History Smoking Status: Never Smoker Substance Use Type: None - Medications Home Medications: Home Medications Medication Instructions Recorded Confirmed Last Taken Type Gabapentin [Neurontin] 300 mg PO DAILY 12/30/13 01/23/16 11/17/14 History Morphine [Morphine TAB] 30 mg PO DAILY 12/30/13 01/23/16 01/07/16 History Lisinopril [Zestril TAB] 20 mg PO QDAY #30 tablet 06/20/16 Unknown Rx amLODIPine [Norvasc] 5 mg PO DAILY #30 tab 08/13/16 Unknown Rx Ondansetron [Zofran ODT TAB] 8 mg PO Q8HR PRN #12 tab.rapdis 08/14/16 Unknown Rx Morphine ER [Ms Contin ER] 30 mg PO QDAY #5 tablet 08/27/16 Unknown Rx metroNIDAZOLE [Flagyl] 500 mg PO Q8HR #30 tablet 08/27/16 Unknown Rx Ondansetron [Zofran Odt] 4 mg PO Q6H PRN #10 tab.rapdis 09/01/16 Unknown Rx Acetaminophen [Acetaminophen TAB] 500 mg PO Q6HR PRN #30 tablet 03/23/17 Unknown Rx Dextromethorphan/Benzocaine 1 each PO Q4H PRN #1 box 03/23/17 Unknown Rx [Cepacol Sorethroat-Cough Sravani] levETIRAcetam [Keppra TAB] 1,000 mg PO BID #60 tab 05/13/18 Unknown Rx levETIRAcetam [Keppra TAB] 500 mg PO BID #60 tablet 05/13/18 Unknown Rx Atenolol [Tenormin] 50 mg PO DAILY 30 Days #30 tab 09/01/18 Unknown Rx levETIRAcetam [Keppra TAB] 1,000 mg PO BID 30 Days #60 tab 09/01/18 Unknown Rx levETIRAcetam [Keppra TAB] 500 mg PO BID 30 Days #60 tablet 09/01/18 Unknown Rx Acetaminophen [Acetaminophen TAB] 1,000 mg PO Q6HR PRN #30 tablet 09/08/18 Unknown Rx Acetaminophen/Codeine [Tylenol 1 tab PO Q6H PRN #12 tab 09/08/18 Unknown Rx /Codeine # 3 tab] Diclofenac 1% [Diclofenac 1% 1 applicatio TP QID PRN #1 tube 09/08/18 Unknown Rx topical gel] predniSONE [Deltasone] 40 mg PO QDAY 5 Days #10 tab 09/08/18 Unknown Rx Dicyclomine [Bentyl] 20 mg PO Q6H PRN #24 tablet 09/25/18 Unknown Rx Diphenoxylate/Atropine [Lomotil] 1 - 2 tab PO Q4H PRN #15 tablet 09/25/18 Unknown Rx Omeprazole 40 mg PO DAILY #30 capsule. 09/25/18 Unknown Rx Ondansetron [Zofran ODT TAB] 8 mg PO Q8HR PRN #21 tab.brianda 09/25/18 Unknown Rx Sucralfate [Carafate] 1 gm PO Q6HR #90 tablet 09/25/18 Unknown Rx cephALEXin [Keflex] 500 mg PO Q8HR #30 cap 09/25/18 Unknown Rx raNITIdine HCl [Zantac] 150 mg PO Q12H #30 tablet 09/25/18 Unknown Rx ED Physical Exam - General Limitations: No Limitations General appearance: alert, in no apparent distress - Head Head exam: Present: atraumatic, normocephalic, normal inspection - Eye Eye exam: Present: normal appearance, PERRL, EOMI. Absent: scleral icterus, conjunctival injection, nystagmus, periorbital swelling, periorbital tenderness Pupils: Present: normal accommodation. Absent: mydriatic - ENT ENT exam: Present: normal exam, normal orophraynx, mucous membranes moist, TM's normal bilaterally, normal external ear exam - Neck Neck exam: Present: normal inspection, full ROM. Absent: tenderness, lymphadenopathy - Respiratory Respiratory exam: Present: normal lung sounds bilaterally. Absent: respiratory distress, wheezes, rales, rhonchi, chest wall tenderness, accessory muscle use, prolonged expiratory - Cardiovascular Cardiovascular Exam: Present: regular rate, normal rhythm, normal heart sounds. Absent: systolic murmur, diastolic murmur, rubs, gallop - GI/Abdominal GI/Abdominal exam: Present: soft, tenderness (epigastric and diffuse), guarding, normal bowel sounds. Absent: hyperactive bowel sounds, hypoactive bowel sounds, organomegaly, mass, hernia - Rectal Rectal exam: Present: deferred - Extremities Exam Extremities exam: Present: normal inspection, full ROM, normal capillary refill. Absent: pedal edema, joint swelling - Back Exam Back exam: Present: normal inspection, full ROM. Absent: tenderness, CVA tenderness (R), CVA tenderness (L), muscle spasm, paraspinal tenderness, vertebral tenderness - Neurological Exam Neurological exam: Present: alert, oriented X3, CN II-XII intact, normal gait, reflexes normal - Psychiatric Psychiatric exam: Present: normal affect, normal mood - Skin Skin exam: Present: warm, dry, intact, normal color. Absent: rash ED Course Vital Signs 09/25/18 02:01 Temperature 98 F Pulse Rate 87 Respiratory 20 Rate Blood Pressure 159/91 O2 Sat by Pulse 100 Oximetry - Reevaluation(s) Reevaluation #1: 09/25/18 03:56 This is a 53-year-old female who presented to the ED with acute onset severe abdominal pain with nausea and vomiting and diarrhea for 24 hours. In the ED, patient is alert and oriented 3 and is not in distress but appears to be in pain. Lab test results were reviewed and shows elevated BUNs of 21 and ALT of 113. The rest of the left has results are non-actionable. Patient was treated for pain and also treated for nausea and vomiting, and also given amoxicillin IV 1 L bolus. Abdomen pelvis CT scan with contrast was also ordered. On reevaluation, patient's pain and vomiting are well controlled with medications. The abdomen pelvis CT scan w/contrast shows lung bases which are clear. Small hepatic cyst is unchanged. Gallbladder has been removed. Biliary tree dilation is stable. No common duct stone is seen. The spleen, pancreas, adrenal glands and kidneys are normal. There is thickening of the duodenum with surrounding fluid and inflammation but no definite perforation. There is no gastric outlet obstruction. No free fluid or adenopathy in the upper abdomen. CT of the pelvis shows a normal appendix. Fibroid uterus is seen at without adnexal masses. No free pelvic fluid. No diverticulitis or bowel obstruction. The duodenal findings consistent with peptic ulcer disease. There is no perforation or adjacent pancreatitis seen. ED Medical Decision Making - Lab Data Result diagrams: 09/25/18 02:17 09/25/18 02:17 - Radiology Data Radiology results: report reviewed, image reviewed Findings [facility] [address] [place] [address] Cat Scan Report Signed Patient: KRISS PIÑA MR#: [id number] : 1965 Acct:[id number] Age/Sex: 53 / F ADM Date: 09/25/18 Loc: ED Attending Dr: Ordering Physician: SPENSER DYER Date of Service: 09/25/18 Procedure(s): CT abdomen pelvis w con Accession Number(s): [id number] cc: SPENSER DYER CT of the abdomen and pelvis with contrast The patient received 100 cc of Omnipaque 300 for intravenous contrast INDICATION: Abdominal pain with nausea and vomiting COMPARISON: 08/14/2016 FINDINGS: Lung bases are clear. Small hepatic cyst is unchanged. Gallbladder has been removed. Biliary tree dilation is stable. No common duct stone is seen. The spleen, pancreas, adrenal glands and kidneys are normal. There is thickening of the duodenum with surrounding fluid and inflammation but no definite perforation. There is no gastric outlet obstruction. No free fluid or adenopathy in the upper abdomen. CT of the pelvis shows a normal appendix. Fibroid uterus is seen at without adnexal masses. No free pelvic fluid. No diverticulitis or bowel obstruction. IMPRESSION: Duodenal findings consistent with peptic ulcer disease. There is no perforation or adjacent pancreatitis seen. Automated exposure control was utilized to diminish radiation dose. Signer Name: Jax Montemayor MD Signed: 09/25/2018 5:21 AM Workstation Name: [id number] Transcribed By: Dictated By: Jax Montemayor MD Electronically Authenticated By: Jax Montemayor MD Signed Date/Time: 09/25/18 0521 - Medical Decision Making This is a 53-year-old female who presented to the ED with acute onset severe abdominal pain with nausea and vomiting and diarrhea for 24 hours. In the ED, patient is alert and oriented 3 and is not in distress but appears to be in pain. Lab test results were reviewed and shows elevated BUNs of 21 and ALT of 113. The rest of the left has results are non-actionable. Patient was treated for pain and also treated for nausea and vomiting, and also given amoxicillin IV 1 L bolus. Abdomen pelvis CT scan with contrast was also ordered. On reevaluation, patient's pain and vomiting are well controlled with medications. The abdomen pelvis CT scan w/contrast shows lung bases which are clear. Small hepatic cyst is unchanged. Gallbladder has been removed. Biliary tree dilation is stable. No common duct stone is seen. The spleen, pancreas, adrenal glands and kidneys are normal. There is thickening of the duodenum with surrounding fluid and inflammation but no definite perforation. There is no gastric outlet obstruction. No free fluid or adenopathy in the upper abdomen. CT of the pelvis shows a normal appendix. Fibroid uterus is seen at without adnexal masses. No free pelvic fluid. No diverticulitis or bowel obstruction. The duodenal findings consistent with peptic ulcer disease. There is no perforation or adjacent pancreatitis seen. - Differential Diagnosis abdominal pain, Vomiting and diarrhea; gastroenteritis, PUD; Gastritis Critical care attestation.: If time is entered above; I have spent that time in minutes in the direct care of this critically ill patient, excluding procedure time. ED Disposition Clinical Impression: Nausea, vomiting and diarrhea, Peptic ulcer disease, Gastroenteritis, Acute urinary tract infection Abdominal pain Qualifiers: Abdominal location: epigastric Qualified Code(s): R10.13 - Epigastric pain Disposition: TO HOME OR SELFCARE Is pt being admited?: No Does the pt Need Aspirin: No Condition: Stable Instructions: Acute Nausea and Vomiting (ED), Abdominal Pain (ED) Additional Instructions: Maintain a clear liquid diet for 12-24 hours and take medications with food, drink plenty of fluids and follow-up with your Primary care physician in 3-5 days for reevaluation. Return to the ED immediately if symptoms get worse. Prescriptions: Dicyclomine [Bentyl] 20 mg PO Q6H PRN #24 tablet PRN Reason: Pain , Severe (7-10) Sucralfate [Carafate] 1 gm PO Q6HR #90 tablet cephALEXin [Keflex] 500 mg PO Q8HR #30 cap Diphenoxylate/Atropine [Lomotil] 1 - 2 tab PO Q4H PRN #15 tablet PRN Reason: Diarrhea Omeprazole 40 mg PO DAILY #30 capsule. raNITIdine HCl [Zantac] 150 mg PO Q12H #30 tablet Ondansetron [Zofran ODT TAB] 8 mg PO Q8HR PRN #21 tab.rapdis PRN Reason: Nausea Referrals: [facility] [Outside] - 3-5 Days Time of Disposition: 04:00 Print Language: THAI
--- NOTE | 2018-09-25 05:26 | Cat Scan Report ---
CT of the abdomen and pelvis with contrast The patient received 100 cc of Omnipaque 300 for intravenous contrast INDICATION: Abdominal pain with nausea and vomiting COMPARISON: 08/14/2016 FINDINGS: Lung bases are clear. Small hepatic cyst is unchanged. Gallbladder has been removed. Biliar y tree dilation is stable. No common duct stone is seen. The spleen, pancreas, adrenal glands and kid neys are normal. There is thickening of the duodenum with surrounding fluid and inflammation but no d efinite perforation. There is no gastric outlet obstruction. No free fluid or adenopathy in the upper abdomen. CT of the pelvis shows a normal appendix. Fibroid uterus is seen at without adnexal masses. No free p elvic fluid. No diverticulitis or bowel obstruction. IMPRESSION: Duodenal findings consistent with peptic ulcer disease. There is no perforation or adjace nt pancreatitis seen. Automated exposure control was utilized to diminish radiation dose. Signer Name: Jax Montemayor MD Signed: 09/25/2018 5:21 AM Workstation Name: [id number]
[2018-09-25 06:08] LABS: Bilirubin,Urine NEG (Negative); Blood,Urine NEG (Negative); Color,Urine Yellow (Yellow); Mucus,Urine 3+ /HPF; Urobilinogen,Urine < 2.0 mg/dL (<2.0)
== END 2018-09-25 06:30 | disposition home or self-care (01) ==
LOC: ED 01:56
DX: K52.9 Noninfective gastroenteritis and colitis, unspecified (principal); N39.0 Urinary tract infection, site not specified; K27.9 Peptic ulcer, site unspecified, unspecified as acute or chronic, without hemorrhage or perforation; R11.2 Nausea with vomiting, unspecified; M54.9 Dorsalgia, unspecified; G89.29 Other chronic pain; J45.909 Unspecified asthma, uncomplicated; I10 Essential (primary) hypertension; Z88.5 Allergy status to narcotic agent; Z88.6 Allergy status to analgesic agent; Z88.8 Allergy status to other drugs, medicaments and biological substances; Z79.1 Long term (current) use of non-steroidal anti-inflammatories (NSAID); Z79.899 Other long term (current) drug therapy; Z90.49 Acquired absence of other specified parts of digestive tract; Z86.73 Personal history of transient ischemic attack (TIA), and cerebral infarction without residual deficits
CPT/HCPCS: 36415; 74177; 80053; 81001; 83690; 85025; 87086; 96374; 96375; 99284; J1885; J2270; J2405; J7030; Q9967; J2765

== ENCOUNTER 2019-01-24 13:59 | Emergency (ER) | payer MEDICAID, MEDICARE ==
--- NOTE | 2019-01-24 14:20 | Emergency Department Report ---
Blank Doc - Documentation Documentation: 53-year-old female that presents with abdominal pain and n/v. This initial assessment/diagnostic orders/clinical plan/treatment(s) is/are subject to change based on patient's health status, clinical progression and re- assessment by fellow clinical providers in the ED. Further treatment and workup at subsequent clinical providers discretion. Patient/guardians urged not to elope from the ED as their condition may be serious if not clinically assessed and managed. Initial orders include: 1- Patient sent to [facility] for further evaluation and treatment 2- labs 3- UA
[2019-01-24 14:36] LABS: Basophils % (Auto) 0.6 % (0.0-1.8); Eosinophils % (Auto) 0.4 % (0.0-4.3); Hematocrit 35.5 % (30.3-42.9); Hemoglobin 12.1 gm/dl (10.1-14.3); Lymphocytes # (Auto) 1.6 K/mm3 (1.2-5.4); Lymphocytes % (Auto) 22.5 % (13.4-35.0); Mean Corpuscular HGB Conc 34 % (30-34); Mean Corpuscular Volume 87 fl (79-97); Monocytes # (Auto) 0.4 K/mm3 (0.0-0.8); Monocytes % (Auto) 5.6 % (0.0-7.3); Platelet Count 270 K/mm3 (140-440); Red Blood Count 4.07 M/mm3 (3.65-5.03); Red Cell Distribution Width 12.6 % (13.2-15.2)
[2019-01-24 14:56] LABS: Alanine Aminotransferase 19 units/L (7-56); Albumin 3.9 g/dL (3.9-5); BUN/Creatinine Ratio 24; Blood Urea Nitrogen 12 mg/dL (7-17); Calcium 9.4 mg/dL (8.4-10.2); Hemolysis Index 5
--- NOTE | 2019-01-24 15:27 | Emergency Department Report ---
ED Abdominal Pain HPI - General Chief Complaint: Nausea/Vomiting/Diarrhea Stated Complaint: VOMITING/FEVER/ULCER Time Seen by Provider: 01/24/19 14:20 Source: patient Mode of arrival: Ambulatory Limitations: No Limitations - History of Present Illness Initial Comments: 53-year-old -[place] female presents to the emergency room complaining of nausea vomiting and abdominal pain for the last 3 days. Patient states that she has a history of gastric ulcers/Pepcid. Patient reports that her stool has been bright yellow and slimy. Patient also reports that she does have a history of seizures and has been off her her Keppra 1500 mg twice a day since . States she has not been able to take her medications secondary to nausea or vomiting. Patient currently does not have a digital sales assistant. She denies any fever or chills. She's never had a blood transfusion still has her gallbladder. She does have a history of gastroparesis chronic tachycardic and chronic back pain. Review of her chart. MD Complaint: abdominal pain Onset/Timin -: days(s) Location: epigastric Severity scale (0 -10): 9 Quality: stabbing, sharp Consistency: constant Improves With: nothing Worsens With: nothing Associated Symptoms: nausea, vomiting - Related Data Home Medications Medication Instructions Recorded Confirmed Last Taken Gabapentin [Neurontin] 300 mg PO DAILY 12/30/13 01/23/16 11/17/14 Morphine [Morphine TAB] 30 mg PO DAILY 12/30/13 01/23/16 01/07/16 Previous Rx's Medication Instructions Recorded Last Taken Type Lisinopril [Zestril TAB] 20 mg PO QDAY #30 tablet 06/20/16 Unknown Rx amLODIPine 5 mg PO DAILY #30 tab 08/13/16 Unknown Rx Ondansetron [Zofran ODT TAB] 8 mg PO Q8HR PRN #12 tab.rapdis 08/14/16 Unknown Rx Morphine ER [Ms Contin ER] 30 mg PO QDAY #5 tablet 08/27/16 Unknown Rx metroNIDAZOLE [Flagyl] 500 mg PO Q8HR #30 tablet 08/27/16 Unknown Rx Ondansetron [Zofran Odt] 4 mg PO Q6H PRN #10 tab.rapdis 09/01/16 Unknown Rx Acetaminophen [Acetaminophen TAB] 500 mg PO Q6HR PRN #30 tablet 03/23/17 Unknown Rx Dextromethorphan/Benzocaine 1 each PO Q4H PRN #1 box 03/23/17 Unknown Rx [Cepacol Sorethroat-Cough Sravani] levETIRAcetam [Keppra TAB] 1,000 mg PO BID #60 tab 05/13/18 Unknown Rx levETIRAcetam [Keppra TAB] 500 mg PO BID #60 tablet 05/13/18 Unknown Rx Atenolol [Tenormin] 50 mg PO DAILY 30 Days #30 tab 09/01/18 Unknown Rx levETIRAcetam [Keppra TAB] 1,000 mg PO BID 30 Days #60 tab 09/01/18 Unknown Rx levETIRAcetam [Keppra TAB] 500 mg PO BID 30 Days #60 tablet 09/01/18 Unknown Rx Acetaminophen [Acetaminophen TAB] 1,000 mg PO Q6HR PRN #30 tablet 09/08/18 Unknown Rx Acetaminophen/Codeine [Tylenol 1 tab PO Q6H PRN #12 tab 09/08/18 Unknown Rx /Codeine # 3 tab] Diclofenac 1% [Diclofenac 1% 1 applicatio TP QID PRN #1 tube 09/08/18 Unknown Rx topical gel] predniSONE [Deltasone] 40 mg PO QDAY 5 Days #10 tab 09/08/18 Unknown Rx Dicyclomine [Bentyl] 20 mg PO Q6H PRN #24 tablet 09/25/18 Unknown Rx Diphenoxylate/Atropine [Lomotil] 1 - 2 tab PO Q4H PRN #15 tablet 09/25/18 Unknown Rx Omeprazole 40 mg PO DAILY #30 capsule. 09/25/18 Unknown Rx Ondansetron [Zofran ODT TAB] 8 mg PO Q8HR PRN #21 tab.rapdis 09/25/18 Unknown Rx Sucralfate [Carafate] 1 gm PO Q6HR #90 tablet 09/25/18 Unknown Rx cephALEXin [Keflex] 500 mg PO Q8HR #30 cap 09/25/18 Unknown Rx raNITIdine HCl [Zantac] 150 mg PO Q12H #30 tablet 09/25/18 Unknown Rx Ondansetron [Zofran Odt] 4 mg PO Q8HR #12 tab.rapdis 01/24/19 Unknown Rx Allergies Allergy/AdvReac Type Severity Reaction Status Date / Time oxycodone HCl [From Percocet] Allergy Unknown Verified 03/23/17 12:48 aspirin AdvReac Vomiting Verified 03/23/17 12:48 ibuprofen [From Motrin] AdvReac Vomiting Verified 03/23/17 12:48 ED Review of Systems ROS: Stated complaint: VOMITING/FEVER/ULCER Other details as noted in HPI Comment: All other systems reviewed and negative Constitutional: denies: chills, fever ED Past Medical Hx - Past Medical History Previous Medical History?: Yes Hx Hypertension: Yes Hx CVA: Yes (TIA) Hx Heart Attack/AMI: No Hx Congestive Heart Failure: No Hx Diabetes: No Hx Deep Vein Thrombosis: No Hx Pulmonary Embolism: No Hx Liver Disease: No Hx Renal Disease: No Hx Sickle Cell Disease: No Hx Arthritis: No Hx Seizures: Yes Hx Kidney Stones: No Hx Asthma: Yes Hx COPD: No Hx Tuberculosis: No Hx Dementia: No Hx HIV: No Additional medical history: FIBROIDS. CHRONIC BACK PAIN. Tachycardia. gastroparesis - Surgical History Past Surgical History?: Yes Hx Coronary Stent: No Hx Open Heart Surgery: No Hx Pacemaker: No Hx Internal Defibrillator: No Hx Cholecystectomy: Yes Hx Appendectomy: No Hx Breast Surgery: No Additional Surgical History: rotator cuff - Social History Smoking Status: Never Smoker Substance Use Type: None - Medications Home Medications: Home Medications Medication Instructions Recorded Confirmed Last Taken Type Gabapentin [Neurontin] 300 mg PO DAILY 12/30/13 01/23/16 11/17/14 History Morphine [Morphine TAB] 30 mg PO DAILY 12/30/13 01/23/16 01/07/16 History Lisinopril [Zestril TAB] 20 mg PO QDAY #30 tablet 06/20/16 Unknown Rx amLODIPine 5 mg PO DAILY #30 tab 08/13/16 Unknown Rx Ondansetron [Zofran ODT TAB] 8 mg PO Q8HR PRN #12 tab.rapdis 08/14/16 Unknown Rx Morphine ER [Ms Contin ER] 30 mg PO QDAY #5 tablet 08/27/16 Unknown Rx metroNIDAZOLE [Flagyl] 500 mg PO Q8HR #30 tablet 08/27/16 Unknown Rx Ondansetron [Zofran Odt] 4 mg PO Q6H PRN #10 tab.rapdis 09/01/16 Unknown Rx Acetaminophen [Acetaminophen TAB] 500 mg PO Q6HR PRN #30 tablet 03/23/17 Unknown Rx Dextromethorphan/Benzocaine 1 each PO Q4H PRN #1 box 03/23/17 Unknown Rx [Cepacol Sorethroat-Cough Sravani] levETIRAcetam [Keppra TAB] 1,000 mg PO BID #60 tab 05/13/18 Unknown Rx levETIRAcetam [Keppra TAB] 500 mg PO BID #60 tablet 05/13/18 Unknown Rx Atenolol [Tenormin] 50 mg PO DAILY 30 Days #30 tab 09/01/18 Unknown Rx levETIRAcetam [Keppra TAB] 1,000 mg PO BID 30 Days #60 tab 09/01/18 Unknown Rx levETIRAcetam [Keppra TAB] 500 mg PO BID 30 Days #60 tablet 09/01/18 Unknown Rx Acetaminophen [Acetaminophen TAB] 1,000 mg PO Q6HR PRN #30 tablet 09/08/18 Unknown Rx Acetaminophen/Codeine [Tylenol 1 tab PO Q6H PRN #12 tab 09/08/18 Unknown Rx /Codeine # 3 tab] Diclofenac 1% [Diclofenac 1% 1 applicatio TP QID PRN #1 tube 09/08/18 Unknown Rx topical gel] predniSONE [Deltasone] 40 mg PO QDAY 5 Days #10 tab 09/08/18 Unknown Rx Dicyclomine [Bentyl] 20 mg PO Q6H PRN #24 tablet 09/25/18 Unknown Rx Diphenoxylate/Atropine [Lomotil] 1 - 2 tab PO Q4H PRN #15 tablet 09/25/18 Unknown Rx Omeprazole 40 mg PO DAILY #30 capsule. 09/25/18 Unknown Rx Ondansetron [Zofran ODT TAB] 8 mg PO Q8HR PRN #21 tab.brianda 09/25/18 Unknown Rx Sucralfate [Carafate] 1 gm PO Q6HR #90 tablet 09/25/18 Unknown Rx cephALEXin [Keflex] 500 mg PO Q8HR #30 cap 09/25/18 Unknown Rx raNITIdine HCl [Zantac] 150 mg PO Q12H #30 tablet 09/25/18 Unknown Rx Ondansetron [Zofran Odt] 4 mg PO Q8HR #12 tab.rapdis 01/24/19 Unknown Rx ED Physical Exam - General Limitations: No Limitations General appearance: alert, in no apparent distress - Head Head exam: Present: atraumatic, normocephalic - Eye Eye exam: Present: normal appearance - ENT ENT exam: Present: normal exam, mucous membranes moist - Neck Neck exam: Present: normal inspection - Respiratory Respiratory exam: Present: normal lung sounds bilaterally. Absent: respiratory distress - Cardiovascular Cardiovascular Exam: Present: regular rate, normal rhythm. Absent: systolic murmur, diastolic murmur, rubs, gallop - GI/Abdominal GI/Abdominal exam: Present: soft, tenderness, normal bowel sounds. Absent: guarding, rebound - Neurological Exam Neurological exam: Present: alert, oriented X3 - Psychiatric Psychiatric exam: Present: normal affect, normal mood - Skin Skin exam: Present: warm, dry, intact, normal color. Absent: rash ED Course Vital Signs 01/24/19 01/24/19 01/24/19 14:20 15:48 15:49 Temperature 99.6 F Pulse Rate 104 H 103 H Respiratory 18 11 L Rate Blood Pressure 157/97 Blood Pressure 160/108 [Right] O2 Sat by Pulse 100 98 Oximetry 01/24/19 01/24/19 01/24/19 16:13 16:14 16:43 Temperature Pulse Rate Respiratory 18 20 18 Rate Blood Pressure Blood Pressure [Right] O2 Sat by Pulse 99 Oximetry ED Medical Decision Making - Lab Data Result diagrams: 01/24/19 14:24 01/24/19 14:24 Laboratory Results - last 72 hr 01/24/19 01/24/19 14:24 14:24 WBC 7.1 RBC 4.07 Hgb 12.1 Hct 35.5 MCV 87 MCH 30 MCHC 34 RDW 12.6 L Plt Count 270 Lymph % (Auto) 22.5 [place] % (Auto) 5.6 Eos % (Auto) 0.4 Baso % (Auto) 0.6 Lymph # 1.6 [place] # 0.4 Eos # 0.0 Baso # 0.0 Seg Neutrophils % 70.9 H Seg Neutrophils # 5.1 Sodium 138 Potassium 3.4 L Chloride 101.7 Carbon Dioxide 25 Anion Gap 15 BUN 12 Creatinine 0.5 L Estimated GFR > 60 BUN/Creatinine Ratio 24 Glucose 104 H Calcium 9.4 Total Bilirubin 0.70 AST 11 ALT 19 Alkaline Phosphatase 86 Total Protein 8.3 H Albumin 3.9 Albumin/Globulin Ratio 0.9 Lipase 22 - Medical Decision Making 53-year-old -[place] female presents to the emergency room complaining of nausea vomiting and abdominal pain for the last 3 days. Patient states that she has a history of gastric ulcers/Pepcid. Patient reports that her stool has been bright yellow and slimy. Patient also reports that she does have a history of seizures and has been off her her Keppra 1500 mg twice a day since . States she has not been able to take her medications secondary to nausea or vomiting. Patient currently does not have a digital sales assistant. She denies any fever or chills. She's never had a blood transfusion still has her ga llbladder. She does have a history of gastroparesis chronic tachycardic and chronic back pain. Review of her chart. Labs are stable. Patient feels much better after having Dilaudid and Zofran and fluids. Patient was discharged home in stable condition to follow up with gastroenterology. Critical care attestation.: If time is entered above; I have spent that time in minutes in the direct care of this critically ill patient, excluding procedure time. ED Disposition Clinical Impression: Abdominal pain Disposition: DC-01 TO HOME OR SELFCARE Is pt being admited?: No Does the pt Need Aspirin: No Condition: Stable Instructions: Acute Abdominal Pain (ED) Prescriptions: Ondansetron [Zofran Odt] 4 mg PO Q8HR #12 tab.rapdis Referrals: [facility] [Provider Group] - 3-5 Days Forms: Work/School Release Form(ED)
[2019-01-24] MEDS ORDERED: SODIUM CHLORIDE 0.9% 1000 ML 1,000 ML IV ONE (15:54)
[2019-01-24] MEDS ORDERED: HYDROmorphone 1 MG/1 ML INJ IV ONE (15:54)
[2019-01-24] MEDS ORDERED: ONDANSETRON 4 MG/2 ML INJ IV ONE (15:54)
[2019-01-24 18:02] VITALS: BP 148/90
[2019-01-24 18:10] LABS: Bilirubin,Urine NEG (Negative); Blood,Urine NEG (Negative); Color,Urine Yellow (Yellow); Hyaline Casts,Urine 1 /LPF; Mucus,Urine 2+ /HPF
== END 2019-01-24 18:02 | disposition home or self-care (01) ==
LOC: ED 13:59
DX: R10.9 Unspecified abdominal pain (principal); R11.2 Nausea with vomiting, unspecified; I10 Essential (primary) hypertension; J45.909 Unspecified asthma, uncomplicated
CPT/HCPCS: 36415; 80053; 81001; 83690; 85025; 87086; 96361; 96374; 96375; 99283; J1170; J2405; J7030

== ENCOUNTER 2019-02-04 08:08 | Emergency (ER) | payer MEDICAID ==
--- NOTE | 2019-02-04 08:24 | Emergency Department Report ---
ED Chest Pain HPI - General Stated Complaint: CHEST PAIN Time Seen by Provider: 02/04/19 08:23 Source: patient, family Mode of arrival: Ambulatory Limitations: No Limitations - History of Present Illness Initial Comments: Patient is a 53-year-old -[place] female who comes to the emergency room complaining of chest pain. She states that it is dull. She states that she has had some shortness of breath and swelling in her legs. She also endorses chills. He should also endorses dizziness at times. She states this has been going on for weeks. She has not seen her primary care doctor who is Dr. Lucero: Due to the fact that he does not accept Medicaid. Patient has hypertension and is off her atenolol due to her inability to see her primary care. On arrival to the ER patient is hypertensive with no focal neuro deficit. Medical history noncompliance with medications hypertension obese post menopausal gastrenteritis- reports EGD about 1 year ago rotator cuff surgery pelvic screws placed hernia Denies CVA/CAD NOK daugther- whom she lives with denies cig/etoh/drugs Rx atenolol- denies other meds she is to be taking MD Complaint: chest pain -: Gradual, days(s) Onset: during rest, during exertion Pain Location: substernal Pain Radiation: none Severity: mild Quality: dull Consistency: constant Improves With: nothing Worsens With: nothing Treatments Prior to Arrival: none Aspirin use within the Past 7 Days: (0) No - Related Data On Oral Contraceptives: No Previous Rx's Medication Instructions Recorded Last Taken Type Lisinopril [Zestril TAB] 20 mg PO QDAY #30 tablet 06/20/16 Unknown Rx amLODIPine 5 mg PO DAILY #30 tab 08/13/16 Unknown Rx levETIRAcetam [Keppra TAB] 1,000 mg PO BID 30 Days #60 tab 09/01/18 Unknown Rx levETIRAcetam [Keppra TAB] 500 mg PO BID 30 Days #60 tablet 09/01/18 Unknown Rx Omeprazole 40 mg PO DAILY #30 capsule. 09/25/18 Unknown Rx raNITIdine HCl [Zantac] 150 mg PO Q12H #30 tablet 09/25/18 Unknown Rx Atenolol [Tenormin] 50 mg PO DAILY 30 Days #30 tab 02/04/19 Unknown Rx Potassium Chloride [K-Dur] 20 meq PO BID #3 tab 02/04/19 Unknown Rx Allergies Allergy/AdvReac Type Severity Reaction Status Date / Time oxycodone HCl [From Percocet] Allergy Unknown Verified 03/23/17 12:48 aspirin AdvReac Vomiting Verified 03/23/17 12:48 ibuprofen [From Motrin] AdvReac Vomiting Verified 03/23/17 12:48 Heart Score - HEART Score History: Slightly suspicious EKG: Normal Age: 45-65 Risk factors: 1-2 risk factors Troponin: < normal limit HEART Score: 2 ED Review of Systems ROS: Stated complaint: CHEST PAIN Other details as noted in HPI Comment: All other systems reviewed and negative ED Past Medical Hx - Past Medical History Previous Medical History?: Yes Hx Hypertension: Yes Hx CVA: Yes (TIA) Hx Heart Attack/AMI: No Hx Congestive Heart Failure: No Hx Diabetes: No Hx Deep Vein Thrombosis: No Hx Pulmonary Embolism: No Hx GERD: Yes Hx Liver Disease: No Hx Renal Disease: No Hx of Cancer: No Hx Sickle Cell Disease: No Hx Arthritis: No Hx Headaches / Migraines: No Hx Seizures: Yes Hx Kidney Stones: No Hx Asthma: Yes Hx COPD: No Hx Tuberculosis: No Hx Dementia: No Hx HIV: No Additional medical history: FIBROIDS. CHRONIC BACK PAIN. Tachycardia. gastroparesis - Surgical History Past Surgical History?: Yes Hx Coronary Stent: No Hx Open Heart Surgery: No Hx Pacemaker: No Hx Internal Defibrillator: No Hx Cholecystectomy: Yes Hx Appendectomy: No Hx Breast Surgery: No Additional Surgical History: rotator cuff - Family History Family history: no significant - Social History Smoking Status: Never Smoker Substance Use Type: None - Medications Home Medications: Home Medications Medication Instructions Recorded Confirmed Last Taken Type Lisinopril [Zestril TAB] 20 mg PO QDAY #30 tablet 06/20/16 Unknown Rx amLODIPine 5 mg PO DAILY #30 tab 08/13/16 Unknown Rx levETIRAcetam [Keppra TAB] 1,000 mg PO BID 30 Days #60 tab 09/01/18 Unknown Rx levETIRAcetam [Keppra TAB] 500 mg PO BID 30 Days #60 tablet 09/01/18 Unknown Rx Omeprazole 40 mg PO DAILY #30 09/25/18 Unknown Rx raNITIdine HCl [Zantac] 150 mg PO Q12H #30 tablet 09/25/18 Unknown Rx Atenolol [Tenormin] 50 mg PO DAILY 30 Days #30 tab 02/04/19 Unknown Rx Potassium Chloride [K-Dur] 20 meq PO BID #3 tab 02/04/19 Unknown Rx ED Physical Exam - General General appearance: alert, in no apparent distress - Head Head exam: Present: atraumatic, normocephalic - Eye Eye exam: Present: normal appearance - ENT ENT exam: Present: mucous membranes moist - Neck Neck exam: Present: normal inspection - Respiratory Respiratory exam: Present: normal lung sounds bilaterally. Absent: respiratory distress - Cardiovascular Cardiovascular Exam: Present: regular rate, normal rhythm. Absent: systolic murmur, diastolic murmur, rubs, gallop - GI/Abdominal GI/Abdominal exam: Present: soft, normal bowel sounds - Extremities Exam Extremities exam: Present: normal inspection - Back Exam Back exam: Present: normal inspection - Neurological Exam Neurological exam: Present: alert, oriented X3 - Psychiatric Psychiatric exam: Present: normal affect, normal mood - Skin Skin exam: Present: warm, dry, intact, normal color. Absent: rash ED Course Vital Signs 02/04/19 02/04/19 08:25 08:56 Temperature 97.8 F Pulse Rate 96 H 92 H Respiratory 16 Rate Blood Pressure 177/116 172/112 O2 Sat by Pulse 95 Oximetry PATTI score - Patti Score Age > 65: (1) Yes Aspirin use within the Past 7 Days: (0) No 3 or more CAD Risk Factors: (0) No 2 or more Angina events in past 24 hrs: (0) No Known CAD with more than 50% Stenosis: (0) No Elevated Cardiac Markers: (0) No ST Deviation Greater than 0.5mm: (0) No PATTI Score: 1 ED Medical Decision Making - Lab Data Result diagrams: 02/04/19 08:55 02/04/19 08:55 - EKG Data EKG shows normal: sinus rhythm Rate: normal - EKG Data When compared to previous EKG there are: no significant change Interpretation: no acute changes - Radiology Data Radiology results: report reviewed, image reviewed - Medical Decision Making Lab Results 02/04/19 02/04/19 02/04/19 Range/Units 08:55 08:55 08:55 WBC 5.0 (4.5-11.0) K/mm3 RBC 3.58 L (3.65-5.03) M/mm3 Hgb 10.7 (10.1-14.3) gm/dl Hct 31.1 (30.3-42.9) % MCV 87 (79-97) fl MCH 30 (28-32) pg MCHC 35 H (30-34) % RDW 12.8 L (13.2-15.2) % Plt Count 306 (140-440) K/mm3 Sodium 140 (137-145) mmol/L Potassium 3.1 L (3.6-5.0) mmol/L Chloride 97.7 L (98-107) mmol/L Carbon Dioxide 26 (22-30) mmol/L Anion Gap 19 mmol/L BUN 13 (7-17) mg/dL Creatinine 0.5 L (0.7-1.2) mg/dL Estimated GFR > 60 ml/min BUN/Creatinine Ratio 26 % Glucose 106 H (65-100) mg/dL Calcium 9.2 (8.4-10.2) mg/dL Total Bilirubin 0.20 (0.1-1.2) mg/dL AST 33 (5-40) units/L ALT 47 (7-56) units/L Alkaline Phosphatase 90 (35-129) units/L Troponin T < 0.010 (0.00-0.029) ng/mL Total Protein 7.6 (6.3-8.2) g/dL Albumin 3.7 L (3.9-5) g/dL Albumin/Globulin Ratio 0.9 % HCG, Qual Negative (Negative) Vital Signs 02/04/19 02/04/19 08:25 08:56 Temperature 97.8 F Pulse Rate 96 H 92 H Respiratory 16 Rate Blood Pressure 177/116 172/112 O2 Sat by Pulse 95 Oximetry 12 lead nap trop neg hydral for BP and BP is trending down tylenol for pain pt has chronic pain see allergies- could not take asa ct head wnl discussed compliance with pt- will dc home with dc plan of care and pcp referral - Differential Diagnosis ro acs/ htn urgency/emergency; ro cva/tia Critical care attestation.: If time is entered above; I have spent that time in minutes in the direct care of this critically ill patient, excluding procedure time. ED Disposition Clinical Impression: Chest pain, Hypertension, Non-adherence to medical treatment, Hypokalemia Disposition: DC-01 TO HOME OR SELFCARE Is pt being admited?: No Does the pt Need Aspirin: No Condition: Stable Instructions: Hypertension (ED) Additional Instructions: take medications as instructed low fat diet drink a lot of water low salt diet follow up with pcp - referral below tylenol for pain Prescriptions: Potassium Chloride [K-Dur] 20 meq PO BID #3 tab Atenolol [Tenormin] 50 mg PO DAILY 30 Days #30 tab Referrals: PRIMARY MD GURPREET [Primary Care Provider] - 3-5 Days ABHI RUIZ MD [Staff Physician] - 3-5 Days Time of Disposition: 09:48
[2019-02-04] MEDS ORDERED: hydrALAZINE 20 MG/1 ML INJ IV ONE (08:25)
[2019-02-04 09:17] LABS: Hematocrit 31.1 % (30.3-42.9); Hemoglobin 10.7 gm/dl (10.1-14.3); Mean Corpuscular HGB Conc 35 % (30-34); Mean Corpuscular Volume 87 fl (79-97); Platelet Count 306 K/mm3 (140-440); Red Blood Count 3.58 M/mm3 (3.65-5.03); Red Cell Distribution Width 12.8 % (13.2-15.2)
--- NOTE | 2019-02-04 09:36 | XRay Report ---
CHEST 1 VIEW INDICATION: chest pain. COMPARISON: 08/13/2016 FINDINGS: Support devices: None. Heart: Within normal limits. Lungs/Pleura: No acute air space or interstitial disease. Additional findings: None. IMPRESSION: 1. No acute findings. Signer Name: Leo Mcnair MD Signed: 02/04/2019 9:32 AM Workstation Name: [id number]
[2019-02-04 09:42] LABS: Alanine Aminotransferase 47 units/L (7-56); Albumin 3.7 g/dL (3.9-5); BUN/Creatinine Ratio 26; Blood Urea Nitrogen 13 mg/dL (7-17); Calcium 9.2 mg/dL (8.4-10.2); Hemolysis Index 2
[2019-02-04] MEDS ORDERED: ACETAMINOPHEN 500 MG TAB PO ONE (09:44)
[2019-02-04] MEDS ORDERED: POTASSIUM CHLORIDE ER 20 MEQ TAB PO ONE (09:44)
--- NOTE | 2019-02-04 09:59 | Cat Scan Report ---
CT head without contrast INDICATION : dizzy. TECHNIQUE: Axial imaging performed from the skull apex through the skull base without the use of con trast. All CT scans at this location are performed using CT dose reduction for ALARA by means of aut omated exposure control. COMPARISON: CT head from 05/13/2018 FINDINGS: Parenchyma: No acute intracranial hemorrhage or parenchymal abnormality. Ventricles: Ventricles are normal in size and appear symmetric. Soft tissues: Soft tissues including the orbits appear normal. Bones: No acute osseous abnormality. Sinuses: Sinuses and mastoid air cells are clear. IMPRESSION: No acute abnormality. Signer Name: Leo Mcnair MD Signed: 02/04/2019 9:55 AM Workstation Name: [id number]
[2019-02-04 10:32] VITALS: BP 164/94
== END 2019-02-04 10:34 | disposition home or self-care (01) ==
LOC: ED 08:08
DX: E87.6 Hypokalemia (principal); I10 Essential (primary) hypertension; K21.9 Gastro-esophageal reflux disease without esophagitis; G40.909 Epilepsy, unspecified, not intractable, without status epilepticus; Z91.19 Patient's noncompliance with other medical treatment and regimen; Z90.49 Acquired absence of other specified parts of digestive tract; Z86.73 Personal history of transient ischemic attack (TIA), and cerebral infarction without residual deficits; Z79.899 Other long term (current) drug therapy
CPT/HCPCS: 36415; 70450; 71045; 80053; 84484; 84703; 85027; 93005; 93010; 96374; 99285; J0360

== ENCOUNTER 2019-02-24 20:23 | Emergency (ER) | payer MEDICAID ==
[2019-02-25 03:19] LABS: Basophils # (Auto) 0.1 K/mm3 (0.0-0.1); Eosinophils % (Auto) 0.8 % (0.0-4.3); Hematocrit 40.9 % (30.3-42.9); Hemoglobin 13.6 gm/dl (10.1-14.3); Lymphocytes # (Auto) 2.6 K/mm3 (1.2-5.4); Lymphocytes % (Auto) 46.3 % (13.4-35.0); Mean Corpuscular HGB Conc 33 % (30-34); Mean Corpuscular Volume 86 fl (79-97); Monocytes # (Auto) 0.5 K/mm3 (0.0-0.8); Monocytes % (Auto) 9.6 % (0.0-7.3); Platelet Count 388 K/mm3 (140-440); Red Blood Count 4.79 M/mm3 (3.65-5.03); Red Cell Distribution Width 13.3 % (13.2-15.2)
[2019-02-25] MEDS: LIDOCAINE VISCOUS 2% 15 ML ORAL LIQD PO ONE (03:36)
[2019-02-25] MEDS: ONDANSETRON 4 MG/2 ML INJ IV ONE (03:36)
[2019-02-25] MEDS: SODIUM CHLORIDE 0.9% 1000 ML 1,000 ML IV ONE (03:36)
[2019-02-25] MEDS: ALUM-MAG HYDROXIDE-SIMETHICONE 200-200-20MG/5ML ORAL LIQD 30 ML PO ONE (03:36)
[2019-02-25] MEDS: DICYCLOMINE 20 MG/2 ML INJ IM ONE (03:40)
[2019-02-25] MEDS: FAMOTIDINE 20 MG/2 ML INJ IV ONE (03:40)
[2019-02-25 03:44] LABS: Alanine Aminotransferase 35 units/L (7-56); Albumin 4.2 g/dL (3.9-5); BUN/Creatinine Ratio 34; Blood Urea Nitrogen 24 mg/dL (7-17); Calcium 9.9 mg/dL (8.4-10.2); Hemolysis Index 2
[2019-02-25 05:12] LABS: Bilirubin,Urine NEG (Negative); Blood,Urine NEG (Negative); Color,Urine Yellow (Yellow); Mucus,Urine FEW /HPF; Urobilinogen,Urine < 2.0 mg/dL (<2.0)
--- NOTE | 2019-02-25 06:18 | Emergency Department Report ---
ED N/V/D HPI - General Chief complaint: Abdominal Pain Stated complaint: N/V/D Source: patient Mode of arrival: Ambulatory Limitations: No Limitations - History of Present Illness Initial comments: Patient is a 53-year-old -[place] female who presents to the ED with continued acute onset persistent nausea and vomiting with epigastric pain for the last 3 days. Patient denies chest pain, shortness of breath, dizziness, fever, chills, cough, sore throat, nasal and sinus congestion, dysuria, urinary frequency and urgency or vaginal bleeding. Patient states that she has not been able to keep anything down in the last 12 hours. MD complaint: nausea, vomiting, abdominal pain (epigastric) -: Sudden, days(s) (3) Description of Vomiting: food contents, watery Description of Diarrhea: other (None) Associated Abdominal Pain: Yes (epigastric pain) Location: epigastric Radiation: none Severity: severe Pain Scale: 7 Quality: cramping, aching Consistency: intermittent Improves with: none Worsens with: vomiting Context: possible food poisoning Associated Symptoms: denies other symptoms. denies: myalgias, chest pain, cough, diaphoresis, fever/chills, headaches, loss of appetite, malaise, nause a/vomiting, rash - Related Data Previous Rx's Medication Instructions Recorded Last Taken Type lisinopriL [Zestril TAB] 20 mg PO QDAY #30 tablet 06/20/16 Unknown Rx amLODIPine 5 mg PO DAILY #30 tab 08/13/16 Unknown Rx levETIRAcetam [Keppra TAB] 1,000 mg PO BID 30 Days #60 tab 09/01/18 Unknown Rx levETIRAcetam [Keppra TAB] 500 mg PO BID 30 Days #60 tablet 09/01/18 Unknown Rx Omeprazole 40 mg PO DAILY #30 capsule. 09/25/18 Unknown Rx raNITIdine HCl [Zantac] 150 mg PO Q12H #30 tablet 09/25/18 Unknown Rx Potassium Chloride [K-Dur] 20 meq PO BID #3 tab 02/04/19 Unknown Rx atenoloL [Tenormin] 50 mg PO DAILY 30 Days #30 tab 02/04/19 Unknown Rx Acetaminophen/Codeine [Tylenol 1 tab PO Q6H PRN #10 tab 02/25/19 Unknown Rx /Codeine # 3 tab] Dicyclomine [Bentyl] 20 mg PO Q6H PRN #24 tablet 02/25/19 Unknown Rx Famotidine [Pepcid] 20 mg PO Q12H #30 tablet 02/25/19 Unknown Rx Ondansetron [Zofran ODT TAB] 8 mg PO Q8HR PRN #21 tab.rapdis 02/25/19 Unknown Rx cephALEXin [Keflex] 500 mg PO Q6HR #40 capsule 02/25/19 Unknown Rx Allergies Allergy/AdvReac Type Severity Reaction Status Date / Time oxycodone HCl [From Percocet] Allergy Unknown Verified 03/23/17 12:48 aspirin AdvReac Vomiting Verified 03/23/17 12:48 ibuprofen [From Motrin] AdvReac Vomiting Verified 03/23/17 12:48 ED Review of Systems ROS: Stated complaint: N/V/D Other details as noted in HPI Constitutional: denies: chills, fever Eyes: denies: eye pain, eye discharge, vision change ENT: denies: ear pain, throat pain Respiratory: denies: cough, shortness of breath, wheezing Cardiovascular: denies: chest pain, palpitations Endocrine: no symptoms reported Gastrointestinal: abdominal pain, nausea, vomiting. denies: diarrhea Genitourinary: denies: urgency, dysuria, discharge Musculoskeletal: denies: back pain, joint swelling, arthralgia Skin: denies: rash, lesions Neurological: denies: headache, weakness, paresthesias Psychiatric: denies: anxiety, depression Hematological/Lymphatic: denies: easy bleeding, easy bruising ED Past Medical Hx - Past Medical History Hx Hypertension: Yes Hx CVA: Yes (TIA) Hx Heart Attack/AMI: No Hx Congestive Heart Failure: No Hx Diabetes: No Hx Deep Vein Thrombosis: No Hx Pulmonary Embolism: No Hx GERD: Yes Hx Liver Disease: No Hx Renal Disease: No Hx Sickle Cell Disease: No Hx Arthritis: No Hx Headaches / Migraines: No Hx Seizures: Yes Hx Kidney Stones: No Hx Asthma: Yes Hx COPD: No Hx Tuberculosis: No Hx Dementia: No Hx HIV: No Additional medical history: FIBROIDS. CHRONIC BACK PAIN. Tachycardia. gastroparesis - Surgical History Hx Coronary Stent: No Hx Open Heart Surgery: No Hx Pacemaker: No Hx Internal Defibrillator: No Hx Cholecystectomy: Yes Hx Appendectomy: No Hx Breast Surgery: No Additional Surgical History: rotator cuff - Social History Smoking Status: Never Smoker Substance Use Type: None - Medications Home Medications: Home Medications Medication Instructions Recorded Confirmed Last Taken Type lisinopriL [Zestril TAB] 20 mg PO QDAY #30 tablet 06/20/16 Unknown Rx amLODIPine 5 mg PO DAILY #30 tab 08/13/16 Unknown Rx levETIRAcetam [Keppra TAB] 1,000 mg PO BID 30 Days #60 tab 09/01/18 Unknown Rx levETIRAcetam [Keppra TAB] 500 mg PO BID 30 Days #60 tablet 09/01/18 Unknown Rx Omeprazole 40 mg PO DAILY #30 capsule.dr 09/25/18 Unknown Rx raNITIdine HCl [Zantac] 150 mg PO Q12H #30 tablet 09/25/18 Unknown Rx Potassium Chloride [K-Dur] 20 meq PO BID #3 tab 02/04/19 Unknown Rx atenoloL [Tenormin] 50 mg PO DAILY 30 Days #30 tab 02/04/19 Unknown Rx Acetaminophen/Codeine [Tylenol 1 tab PO Q6H PRN #10 tab 02/25/19 Unknown Rx /Codeine # 3 tab] Dicyclomine [Bentyl] 20 mg PO Q6H PRN #24 tablet 02/25/19 Unknown Rx Famotidine [Pepcid] 20 mg PO Q12H #30 tablet 02/25/19 Unknown Rx Ondansetron [Zofran ODT TAB] 8 mg PO Q8HR PRN #21 tab.rapdis 02/25/19 Unknown Rx cephALEXin [Keflex] 500 mg PO Q6HR #40 capsule 02/25/19 Unknown Rx ED Physical Exam - General Limitations: No Limitations General appearance: alert, in no apparent distress - Head Head exam: Present: atraumatic, normocephalic, normal inspection - Eye Eye exam: Present: normal appearance, PERRL, EOMI Pupils: Present: normal accommodation - ENT ENT exam: Present: normal exam, normal orophraynx, mucous membranes moist, TM's normal bilaterally, normal external ear exam - Neck Neck exam: Present: normal inspection, full ROM - Respiratory Respiratory exam: Present: normal lung sounds bilaterally. Absent: respiratory distress, wheezes, rales, rhonchi, chest wall tenderness, accessory muscle use, decreased breath sounds - Cardiovascular Cardiovascular Exam: Present: regular rate, normal rhythm, normal heart sounds. Absent: systolic murmur, diastolic murmur, rubs, gallop - GI/Abdominal GI/Abdominal exam: Present: soft, tenderness (Moderate epigastric tenderness), normal bowel sounds. Absent: guarding, rebound, hyperactive bowel sounds - Extremities Exam Extremities exam: Present: normal inspection, full ROM, normal capillary refill - Back Exam Back exam: Present: normal inspection, full ROM. Absent: CVA tenderness (L), muscle spasm, paraspinal tenderness, vertebral tenderness - Neurological Exam Neurological exam: Present: alert, oriented X3, CN II-XII intact, normal gait, reflexes normal - Psychiatric Psychiatric exam: Present: normal affect, normal mood - Skin Skin exam: Present: warm, dry, intact, normal color. Absent: rash ED Course Vital Signs 02/24/19 21:16 Temperature 98.0 F Pulse Rate 89 Respiratory 18 Rate Blood Pressure 132/83 O2 Sat by Pulse 97 Oximetry ED Medical Decision Making - Lab Data Result diagrams: 02/25/19 02:58 02/25/19 02:58 - Medical Decision Making This is a 53-year-old female who presented to the ED with acute onset of persistent nausea and vomiting with epigastric pain for the last 3 days. Patient states that she has not been able to keep anything down because of pe rsistent severe nausea and vomiting intermittently. The patient states that the symptoms began after she ate contaminated food or 3 days ago. In the ED, patient is alert and oriented 3 and is in distress. Lab test results were reviewed and are all nonactionable except urinalysis that shows significant urinary tract infection. Patient was treated in the ED for nausea and vomiting, gastritis with antacids, and also given Rocephin 1 g IV 1. Patient was also treated for pain with bentyl, also recieved normal saline 1 Litre IV bolus x 1. On reevaluation, patient pain is well controlled with medications, and patient was sent home on pain medications antacids, antiemetics and antibiotics and was advised to follow-up with her primary care physician in 3-5 days for reevaluation or return to the ED immediately if symptoms get worse. - Differential Diagnosis GERD; Viral gastroenteritis; UTI; ACS; Dehydration Critical care attestation.: If time is entered above; I have spent that time in minutes in the direct care of this critically ill patient, excluding procedure time. ED Disposition Clinical Impression: Viral gastroenteritis, Nausea and vomiting in adult, Dehydration, Acute urinary tract infection Disposition: TO HOME OR SELFCARE Is pt being admited?: No Does the pt Need Aspirin: No Condition: Stable Instructions: Abdominal Pain (ED), Acute Nausea and Vomiting (ED), Gastroenteritis (ED), Urinary Tract Infection in Women (ED) Additional Instructions: Maintain a clear liquid diet for 12-24 hours. Take medication as advised, drink plenty of fluids and follow-up with your primary care physician in 7-10 days for reevaluation. Return to the ED immediately if symptoms get worse. Prescriptions: Dicyclomine [Bentyl] 20 mg PO Q6H PRN #24 tablet PRN Reason: Pain , Severe (7-10) cephALEXin [Keflex] 500 mg PO Q6HR #40 capsule Famotidine [Pepcid] 20 mg PO Q12H #30 tablet Acetaminophen/Codeine [Tylenol /Codeine # 3 tab] 1 tab PO Q6H PRN #10 tab PRN Reason: Pain , Severe (7-10) Ondansetron [Zofran ODT TAB] 8 mg PO Q8HR PRN #21 tab.rapdis PRN Reason: Nausea Referrals: [facility] [Outside] - 7-10 days Time of Disposition: 06:28 Print Language: MALTESE
[2019-02-25] MEDS: cefTRIAXone/NS 1 GM/50 ML 1 GM/50 ML BAG IV ONE (07:20)
[2019-02-25] MEDS: ACETAMINOPHEN 325 MG TAB PO ONE (07:25)
[2019-02-25] MEDS ORDERED: ACETAMINOPHEN 325 MG TAB ONE (07:27)
[2019-02-25 08:05] VITALS: BP 145/85
== END 2019-02-25 08:04 | disposition home or self-care (01) ==
LOC: ED 20:23
DX: A08.4 Viral intestinal infection, unspecified (principal); N39.0 Urinary tract infection, site not specified; I10 Essential (primary) hypertension; K21.9 Gastro-esophageal reflux disease without esophagitis; G40.909 Epilepsy, unspecified, not intractable, without status epilepticus; J45.909 Unspecified asthma, uncomplicated; Z90.49 Acquired absence of other specified parts of digestive tract; Z86.73 Personal history of transient ischemic attack (TIA), and cerebral infarction without residual deficits; Z98.890 Other specified postprocedural states; Z79.899 Other long term (current) drug therapy; Z79.1 Long term (current) use of non-steroidal anti-inflammatories (NSAID); Z88.6 Allergy status to analgesic agent; Z88.8 Allergy status to other drugs, medicaments and biological substances
CPT/HCPCS: 36415; 80053; 81001; 83690; 84484; 85025; 96361; 96365; 96372; 96375; 99283; J0500; J0696; J2405; J7030

== ENCOUNTER 2019-05-11 19:28 | Emergency (ER) | payer MEDICAID ==
[2019-05-11 20:06] VITALS: BP 140/76
--- NOTE | 2019-05-11 21:51 | Emergency Department Report ---
ED ENT HPI - General Chief complaint: Dental/Oral Stated complaint: TOOTHACHE Time Seen by Provider: 05/11/19 20:59 Source: patient Mode of arrival: Ambulatory Limitations: No Limitations - History of Present Illness Initial comments: Ms. Castillo 53-year-old -[place] female who presents with dental pain x3 weeks. Patient has history of same for the past year. Has been no fever no chills no facial swelling no throat or ear pain. Patient is tolerating p.o. intake. States pain is 4/10 exacerbated by p.o. intake pain is relieved by NSAIDs. Patient states he is not [facility]. Patient given referral to dental resources. Will follow-up with dentist ASAP. MCRAE complaint: tooth pain Onset/Timin -: week(s) Location: tooth # (9 mild) Severity: moderate Severity scale (0 -10): 4 Quality: aching Consistency: constant Improves with: other medication Worsens with: eating Context- Dental: history of dental caries, poor dental care Associated Symptoms: toothache. denies: fever, cough, gum swelling, pain with swallowing, sore throat, tinnitus, hearing loss, discharge from ear, rhinorrhea - Related Data Previous Rx's Medication Instructions Recorded Last Taken Type lisinopriL [Zestril TAB] 20 mg PO QDAY #30 tablet 06/20/16 Unknown Rx amLODIPine 5 mg PO DAILY #30 tab 08/13/16 Unknown Rx levETIRAcetam [Keppra TAB] 1,000 mg PO BID 30 Days #60 tab 09/01/18 Unknown Rx levETIRAcetam [Keppra TAB] 500 mg PO BID 30 Days #60 tablet 09/01/18 Unknown Rx Omeprazole 40 mg PO DAILY #30 capsule. 09/25/18 Unknown Rx raNITIdine HCl [Zantac] 150 mg PO Q12H #30 tablet 09/25/18 Unknown Rx Potassium Chloride [K-Dur] 20 meq PO BID #3 tab 02/04/19 Unknown Rx atenoloL [Tenormin] 50 mg PO DAILY 30 Days #30 tab 02/04/19 Unknown Rx Acetaminophen/Codeine [Tylenol 1 tab PO Q6H PRN #10 tab 02/25/19 Unknown Rx /Codeine # 3 tab] Dicyclomine [Bentyl] 20 mg PO Q6H PRN #24 tablet 02/25/19 Unknown Rx Famotidine [Pepcid] 20 mg PO Q12H #30 tablet 02/25/19 Unknown Rx Ondansetron [Zofran ODT TAB] 8 mg PO Q8HR PRN #21 tab.rapdis 02/25/19 Unknown Rx cephALEXin [Keflex] 500 mg PO Q6HR #40 capsule 02/25/19 Unknown Rx Acetaminophen [Mapap] 1,000 mg PO Q6H PRN #30 tablet 05/11/19 Unknown Rx Amoxicillin [Trimox CAP] 500 mg PO Q8H #30 capsule 05/11/19 Unknown Rx Chlorhexidine Mouthwash [Peridex] 15 ml MM BID #1 bottle 05/11/19 Unknown Rx Allergies Allergy/AdvReac Type Severity Reaction Status Date / Time oxycodone HCl [From Percocet] Allergy Unknown Verified 03/23/17 12:48 aspirin AdvReac Vomiting Verified 03/23/17 12:48 ibuprofen [From Motrin] AdvReac Vomiting Verified 03/23/17 12:48 ED Dental HPI - General Chief complaint: Dental/Oral Stated complaint: TOOTHACHE Time Seen by Provider: 05/11/19 20:59 Source: patient Mode of arrival: Ambulatory Limitations: No Limitations - Related Data Previous Rx's Medication Instructions Recorded Last Taken Type lisinopriL [Zestril TAB] 20 mg PO QDAY #30 tablet 06/20/16 Unknown Rx amLODIPine 5 mg PO DAILY #30 tab 08/13/16 Unknown Rx levETIRAcetam [Keppra TAB] 1,000 mg PO BID 30 Days #60 tab 09/01/18 Unknown Rx levETIRAcetam [Keppra TAB] 500 mg PO BID 30 Days #60 tablet 09/01/18 Unknown Rx Omeprazole 40 mg PO DAILY #30 capsule. 09/25/18 Unknown Rx raNITIdine HCl [Zantac] 150 mg PO Q12H #30 tablet 09/25/18 Unknown Rx Potassium Chloride [K-Dur] 20 meq PO BID #3 tab 02/04/19 Unknown Rx atenoloL [Tenormin] 50 mg PO DAILY 30 Days #30 tab 02/04/19 Unknown Rx Acetaminophen/Codeine [Tylenol 1 tab PO Q6H PRN #10 tab 02/25/19 Unknown Rx /Codeine # 3 tab] Dicyclomine [Bentyl] 20 mg PO Q6H PRN #24 tablet 02/25/19 Unknown Rx Famotidine [Pepcid] 20 mg PO Q12H #30 tablet 02/25/19 Unknown Rx Ondansetron [Zofran ODT TAB] 8 mg PO Q8HR PRN #21 tab.rapdis 02/25/19 Unknown Rx cephALEXin [Keflex] 500 mg PO Q6HR #40 capsule 02/25/19 Unknown Rx Acetaminophen [Mapap] 1,000 mg PO Q6H PRN #30 tablet 05/11/19 Unknown Rx Amoxicillin [Trimox CAP] 500 mg PO Q8H #30 capsule 05/11/19 Unknown Rx Chlorhexidine Mouthwash [Peridex] 15 ml MM BID #1 bottle 05/11/19 Unknown Rx Allergies Allergy/AdvReac Type Severity Reaction Status Date / Time oxycodone HCl [From Percocet] Allergy Unknown Verified 03/23/17 12:48 aspirin AdvReac Vomiting Verified 03/23/17 12:48 ibuprofen [From Motrin] AdvReac Vomiting Verified 03/23/17 12:48 ED Review of Systems ROS: Stated complaint: TOOTHACHE Other details as noted in HPI Constitutional: denies: chills, fever Eyes: denies: eye pain, eye discharge, vision change ENT: dental pain Respiratory: denies: cough, shortness of breath, wheezing Cardiovascular: denies: chest pain, palpitations Endocrine: no symptoms reported Gastrointestinal: denies: abdominal pain, nausea, diarrhea Genitourinary: denies: urgency, dysuria, discharge Musculoskeletal: denies: back pain, joint swelling, arthralgia Skin: denies: rash, lesions Neurological: denies: headache, weakness, paresthesias Psychiatric: denies: anxiety, depression Hematological/Lymphatic: denies: easy bleeding, easy bruising ED Past Medical Hx - Past Medical History Previous Medical History?: Yes Hx Hypertension: Yes Hx CVA: Yes (TIA) Hx Heart Attack/AMI: No Hx Congestive Heart Failure: No Hx Diabetes: No Hx Deep Vein Thrombosis: No Hx Pulmonary Embolism: No Hx GERD: Yes Hx Liver Disease: No Hx Renal Disease: No Hx Sickle Cell Disease: No Hx Arthritis: No Hx Headaches / Migraines: No Hx Seizures: Yes Hx Kidney Stones: No Hx Asthma: Yes Hx COPD: No Hx Tuberculosis: No Hx Dementia: No Hx HIV: No Additional medical history: FIBROIDS. CHRONIC BACK PAIN. Tachycardia. gastroparesis - Surgical History Past Surgical History?: Yes Hx Coronary Stent: No Hx Open Heart Surgery: No Hx Pacemaker: No Hx Internal Defibrillator: No Hx Cholecystectomy: Yes Hx Appendectomy: No Hx Breast Surgery: No Additional Surgical History: rotator cuff - Social History Smoking Status: Never Smoker - Medications Home Medications: Home Medications Medication Instructions Recorded Confirmed Last Taken Type lisinopriL [Zestril TAB] 20 mg PO QDAY #30 tablet 06/20/16 Unknown Rx amLODIPine 5 mg PO DAILY #30 tab 08/13/16 Unknown Rx levETIRAcetam [Keppra TAB] 1,000 mg PO BID 30 Days #60 tab 09/01/18 Unknown Rx levETIRAcetam [Keppra TAB] 500 mg PO BID 30 Days #60 tablet 09/01/18 Unknown Rx Omeprazole 40 mg PO DAILY #30 capsule.dr 09/25/18 Unknown Rx raNITIdine HCl [Zantac] 150 mg PO Q12H #30 tablet 09/25/18 Unknown Rx Potassium Chloride [K-Dur] 20 meq PO BID #3 tab 02/04/19 Unknown Rx atenoloL [Tenormin] 50 mg PO DAILY 30 Days #30 tab 02/04/19 Unknown Rx Acetaminophen/Codeine [Tylenol 1 tab PO Q6H PRN #10 tab 02/25/19 Unknown Rx /Codeine # 3 tab] Dicyclomine [Bentyl] 20 mg PO Q6H PRN #24 tablet 02/25/19 Unknown Rx Famotidine [Pepcid] 20 mg PO Q12H #30 tablet 02/25/19 Unknown Rx Ondansetron [Zofran ODT TAB] 8 mg PO Q8HR PRN #21 tab.rapdis 02/25/19 Unknown Rx cephALEXin [Keflex] 500 mg PO Q6HR #40 capsule 02/25/19 Unknown Rx Acetaminophen [Mapap] 1,000 mg PO Q6H PRN #30 tablet 05/11/19 Unknown Rx Amoxicillin [Trimox CAP] 500 mg PO Q8H #30 capsule 05/11/19 Unknown Rx Chlorhexidine Mouthwash [Peridex] 15 ml MM BID #1 bottle 05/11/19 Unknown Rx ED Physical Exam - General Limitations: No Limitations General appearance: alert, in no apparent distress - Head Head exam: Present: atraumatic, normocephalic - Eye Eye exam: Present: normal appearance, PERRL, EOMI Pupils: Present: normal accommodation - ENT ENT exam: Present: mucous membranes moist, TM's normal bilaterally, normal external ear exam - Expanded ENT Exam Expanded Ear exam: Present: normal external inspection Mouth exam: Absent: trismus Teeth exam: Present: dental caries, fractured tooth #, dental tenderness # (9 mild gum erythema small abcess, no facial swelling, ) Throat exam: Positive: other (uvula midline no exudate no lesion no stridor, no wheezing ). Negative: tonsillar erythema, tonsillomegaly, tonsillar exudate, R peritonsillar mass, L peritonsillar mass - Neck Neck exam: Present: normal inspection, full ROM. Absent: tenderness, lymphadenopathy, thyromegaly - Respiratory Respiratory exam: Present: normal lung sounds bilaterally. Absent: respiratory distress, wheezes, stridor, chest wall tenderness - Cardiovascular Cardiovascular Exam: Present: regular rate, normal rhythm, normal heart sounds. Absent: systolic murmur, diastolic murmur, rubs, gallop - GI/Abdominal GI/Abdominal exam: Present: soft, normal bowel sounds - Extremities Exam Extremities exam: Present: normal inspection - Back Exam Back exam: Present: normal inspection - Neurological Exam Neurological exam: Present: alert, oriented X3 - Psychiatric Psychiatric exam: Present: normal affect, normal mood - Skin Skin exam: Present: warm, dry, intact, normal color. Absent: rash ED Course Vital Signs 05/11/19 20:06 Temperature 98.9 F Pulse Rate 90 Respiratory 18 Rate Blood Pressure 140/76 [Left] O2 Sat by Pulse 96 Oximetry ED Medical Decision Making - Medical Decision Making this is infected dental carries, no facial or gum swelling, no ear or throat pain , plan: rx ibuprofen, amoxicillin, peridex follow up with dentist randi , pt given communit referral to same, pt dc'd to home in stable condition at this time. Critical care attestation.: If time is entered above; I have spent that time in minutes in the direct care of this critically ill patient, excluding procedure time. ED Disposition Clinical Impression: Infected dental carries Disposition: DC- TO HOME OR SELFCARE Is pt being admited?: No Does the pt Need Aspirin: No Condition: Stable Instructions: Dental Caries (ED) Prescriptions: Acetaminophen [Mapap] 1,000 mg PO Q6H PRN #30 tablet PRN Reason: pain Chlorhexidine Mouthwash [Peridex] 15 ml MM BID #1 bottle Amoxicillin [Trimox CAP] 500 mg PO Q8H #30 capsule Referrals: GONZÁLEZ MOHAMUD MD [Primary Care Provider] - 3-5 Days [facility] [Outside] - 3-5 Days Forms: Work/School Release Form(ED) Time of Disposition: 21:55
== END 2019-05-11 22:05 | disposition home or self-care (01) ==
LOC: ED 19:28
DX: K02.9 Dental caries, unspecified (principal); K04.7 Periapical abscess without sinus; I10 Essential (primary) hypertension; Z86.73 Personal history of transient ischemic attack (TIA), and cerebral infarction without residual deficits; J45.909 Unspecified asthma, uncomplicated
CPT/HCPCS: 99282

== ENCOUNTER 2019-10-13 10:21 | Emergency (ER) | payer MEDICAID ==
[2019-10-13 11:01] VITALS: BP 134/84
--- NOTE | 2019-10-13 12:45 | Emergency Department Report ---
ED ENT HPI - General Chief complaint: Dental/Oral Stated complaint: TOOTHACHE Time Seen by Provider: 10/13/19 12:33 Source: patient Mode of arrival: Ambulatory Limitations: No Limitations - History of Present Illness Initial comments: 54-year-old -[place] female presents to the emergency room reporting that she has a toothache with swelling to her right side of mouth x1 day. Patient denies any fever chills denies any trauma to the mouth. She does report having dental issues. Patient reports she is currently through menopause. She has been taken Tylenol for pain and she states that is not helping. Patient has an allergy to oxycodone ibuprofen and aspirin. MD complaint: tooth pain Onset/Timin -: days(s) Location: tooth # Severity: severe Severity scale (0 -10): 9 Quality: aching, sharp Consistency: constant Improves with: none Worsens with: none Context- Dental: history of dental caries, poor dental care - Related Data Previous Rx's Medication Instructions Recorded Last Taken Type lisinopriL [Zestril TAB] 20 mg PO QDAY #30 tablet 06/20/16 Unknown Rx amLODIPine 5 mg PO DAILY #30 tab 08/13/16 Unknown Rx levETIRAcetam [Keppra TAB] 1,000 mg PO BID 30 Days #60 tab 09/01/18 Unknown Rx levETIRAcetam [Keppra TAB] 500 mg PO BID 30 Days #60 tablet 09/01/18 Unknown Rx Omeprazole 40 mg PO DAILY #30 capsule. 09/25/18 Unknown Rx raNITIdine HCl [Zantac] 150 mg PO Q12H #30 tablet 09/25/18 Unknown Rx Potassium Chloride [K-Dur] 20 meq PO BID #3 tab 02/04/19 Unknown Rx atenoloL [Tenormin] 50 mg PO DAILY 30 Days #30 tab 02/04/19 Unknown Rx Acetaminophen/Codeine [Tylenol 1 tab PO Q6H PRN #10 tab 02/25/19 Unknown Rx /Codeine # 3 tab] Dicyclomine [Bentyl] 20 mg PO Q6H PRN #24 tablet 02/25/19 Unknown Rx Famotidine [Pepcid] 20 mg PO Q12H #30 tablet 02/25/19 Unknown Rx Ondansetron [Zofran ODT TAB] 8 mg PO Q8HR PRN #21 tab.rapdis 02/25/19 Unknown Rx cephALEXin [Keflex] 500 mg PO Q6HR #40 capsule 02/25/19 Unknown Rx Acetaminophen [Mapap] 1,000 mg PO Q6H PRN #30 tablet 05/11/19 Unknown Rx Amoxicillin [Trimox CAP] 500 mg PO Q8H #30 capsule 05/11/19 Unknown Rx Chlorhexidine Mouthwash [Peridex] 15 ml MM BID #1 bottle 05/11/19 Unknown Rx Chlorhexidine Mouthwash [Peridex] 15 ml MM TID #473 ml 10/13/19 Unknown Rx Clindamycin [Clindamycin CAP] 300 mg PO Q8H 10 Days #30 cap 10/13/19 Unknown Rx Allergies Allergy/AdvReac Type Severity Reaction Status Date / Time oxycodone HCl [From Percocet] Allergy Unknown Verified 03/23/17 12:48 aspirin AdvReac Vomiting Verified 03/23/17 12:48 ibuprofen [From Motrin] AdvReac Vomiting Verified 03/23/17 12:48 ED Dental HPI - General Chief complaint: Dental/Oral Stated complaint: TOOTHACHE Time Seen by Provider: 10/13/19 12:33 Source: patient Mode of arrival: Ambulatory Limitations: No Limitations - Related Data Previous Rx's Medication Instructions Recorded Last Taken Type lisinopriL [Zestril TAB] 20 mg PO QDAY #30 tablet 06/20/16 Unknown Rx amLODIPine 5 mg PO DAILY #30 tab 08/13/16 Unknown Rx levETIRAcetam [Keppra TAB] 1,000 mg PO BID 30 Days #60 tab 09/01/18 Unknown Rx levETIRAcetam [Keppra TAB] 500 mg PO BID 30 Days #60 tablet 09/01/18 Unknown Rx Omeprazole 40 mg PO DAILY #30 capsule. 09/25/18 Unknown Rx raNITIdine HCl [Zantac] 150 mg PO Q12H #30 tablet 09/25/18 Unknown Rx Potassium Chloride [K-Dur] 20 meq PO BID #3 tab 02/04/19 Unknown Rx atenoloL [Tenormin] 50 mg PO DAILY 30 Days #30 tab 02/04/19 Unknown Rx Acetaminophen/Codeine [Tylenol 1 tab PO Q6H PRN #10 tab 02/25/19 Unknown Rx /Codeine # 3 tab] Dicyclomine [Bentyl] 20 mg PO Q6H PRN #24 tablet 02/25/19 Unknown Rx Famotidine [Pepcid] 20 mg PO Q12H #30 tablet 02/25/19 Unknown Rx Ondansetron [Zofran ODT TAB] 8 mg PO Q8HR PRN #21 tab.rapdis 02/25/19 Unknown Rx cephALEXin [Keflex] 500 mg PO Q6HR #40 capsule 02/25/19 Unknown Rx Acetaminophen [Mapap] 1,000 mg PO Q6H PRN #30 tablet 05/11/19 Unknown Rx Amoxicillin [Trimox CAP] 500 mg PO Q8H #30 capsule 05/11/19 Unknown Rx Chlorhexidine Mouthwash [Peridex] 15 ml MM BID #1 bottle 05/11/19 Unknown Rx Chlorhexidine Mouthwash [Peridex] 15 ml MM TID #473 ml 10/13/19 Unknown Rx Clindamycin [Clindamycin CAP] 300 mg PO Q8H 10 Days #30 cap 10/13/19 Unknown Rx Allergies Allergy/AdvReac Type Severity Reaction Status Date / Time oxycodone HCl [From Percocet] Allergy Unknown Verified 03/23/17 12:48 aspirin AdvReac Vomiting Verified 03/23/17 12:48 ibuprofen [From Motrin] AdvReac Vomiting Verified 03/23/17 12:48 ED Review of Systems ROS: Stated complaint: TOOTHACHE Other details as noted in HPI Comment: All other systems reviewed and negative ED Past Medical Hx - Past Medical History Hx Hypertension: Yes Hx CVA: Yes (TIA) Hx Heart Attack/AMI: No Hx Congestive Heart Failure: No Hx Diabetes: No Hx Deep Vein Thrombosis: No Hx Pulmonary Embolism: No Hx GERD: Yes Hx Liver Disease: No Hx Renal Disease: No Hx Sickle Cell Disease: No Hx Arthritis: No Hx Headaches / Migraines: No Hx Seizures: Yes Hx Kidney Stones: No Hx Asthma: Yes Hx COPD: No Hx Tuberculosis: No Hx Dementia: No Hx HIV: No Additional medical history: FIBROIDS. CHRONIC BACK PAIN. Tachycardia. gastroparesis - Surgical History Hx Coronary Stent: No Hx Open Heart Surgery: No Hx Pacemaker: No Hx Internal Defibrillator: No Hx Cholecystectomy: Yes Hx Appendectomy: No Hx Breast Surgery: No Additional Surgical History: rotator cuff - Social History Smoking Status: Never Smoker - Medications Home Medications: Home Medications Medication Instructions Recorded Confirmed Last Taken Type lisinopriL [Zestril TAB] 20 mg PO QDAY #30 tablet 06/20/16 Unknown Rx amLODIPine 5 mg PO DAILY #30 tab 08/13/16 Unknown Rx levETIRAcetam [Keppra TAB] 1,000 mg PO BID 30 Days #60 tab 09/01/18 Unknown Rx levETIRAcetam [Keppra TAB] 500 mg PO BID 30 Days #60 tablet 09/01/18 Unknown Rx Omeprazole 40 mg PO DAILY #30 capsule.dr 09/25/18 Unknown Rx raNITIdine HCl [Zantac] 150 mg PO Q12H #30 tablet 09/25/18 Unknown Rx Potassium Chloride [K-Dur] 20 meq PO BID #3 tab 02/04/19 Unknown Rx atenoloL [Tenormin] 50 mg PO DAILY 30 Days #30 tab 02/04/19 Unknown Rx Acetaminophen/Codeine [Tylenol 1 tab PO Q6H PRN #10 tab 02/25/19 Unknown Rx /Codeine # 3 tab] Dicyclomine [Bentyl] 20 mg PO Q6H PRN #24 tablet 02/25/19 Unknown Rx Famotidine [Pepcid] 20 mg PO Q12H #30 tablet 02/25/19 Unknown Rx Ondansetron [Zofran ODT TAB] 8 mg PO Q8HR PRN #21 tab.rapdis 02/25/19 Unknown Rx cephALEXin [Keflex] 500 mg PO Q6HR #40 capsule 02/25/19 Unknown Rx Acetaminophen [Mapap] 1,000 mg PO Q6H PRN #30 tablet 05/11/19 Unknown Rx Amoxicillin [Trimox CAP] 500 mg PO Q8H #30 capsule 05/11/19 Unknown Rx Chlorhexidine Mouthwash [Peridex] 15 ml MM BID #1 bottle 05/11/19 Unknown Rx Chlorhexidine Mouthwash [Peridex] 15 ml MM TID #473 ml 10/13/19 Unknown Rx Clindamycin [Clindamycin CAP] 300 mg PO Q8H 10 Days #30 cap 10/13/19 Unknown Rx ED Physical Exam - General Limitations: No Limitations General appearance: alert, in no apparent distress - Head Head exam: Present: atraumatic, normocephalic - Eye Eye exam: Present: normal appearance - Expanded ENT Exam Expanded Teeth exam: Present: dental caries, dental tenderness #, gingival enlargement - Neurological Exam Neurological exam: Present: alert, oriented X3 - Psychiatric Psychiatric exam: Present: normal affect, normal mood - Skin Skin exam: Present: warm, dry, intact, normal color. Absent: rash ED Course Vital Signs 10/13/19 10:59 Temperature 98.1 F Pulse Rate 88 Respiratory 18 Rate Blood Pressure 134/84 O2 Sat by Pulse 97 Oximetry ED Medical Decision Making - Medical Decision Making 54-year-old -[place]rit[place] female presents to the emergency room reporting that she has a toothache with swelling to her right side of mouth x1 day. Patient denies any fever chills denies any trauma to the mouth. She does report having dental issues. Patient reports she is currently through menopause. She has been taken Tylenol for pain and she states that is not helping. Patient has an allergy to oxycodone ibuprofen and aspirin. Patient has dental abscess will place her on clindamycin 300 mg 3 times daily for 10 days. Patient is instructed to use chlorhexidine in acetaminophen for pain management. Patient is instructed to follow-up with a dentist. Referral will be placed. Critical care attestation.: If time is entered above; I have spent that time in minutes in the direct care of this critically ill patient, excluding procedure time. ED Disposition Clinical Impression: Dental abscess Disposition: DC-01 TO HOME OR SELFCARE Is pt being admited?: No Does the pt Need Aspirin: No Condition: Stable Instructions: Dental Abscess (ED) Additional Instructions: Complete antibiotics as prescribed. Use Peridex as prescribed. Is very important for you to follow-up with a dentist. Take Tylenol as needed for pain management. Prescriptions: Clindamycin [Clindamycin CAP] 300 mg PO Q8H 10 Days #30 cap Chlorhexidine Mouthwash [Peridex] 15 ml MM TID #473 ml Referrals: MOE BENNETT III, MATT-SANDRA [Primary Care Provider] - 3-5 Days [facility] [Outside] - 3-5 Days [facility] [Outside] - 3-5 Days [facility] [Provider Group] - 3-5 Days Forms: Work/School Release Form(ED)
== END 2019-10-13 12:55 | disposition home or self-care (01) ==
LOC: ED 10:21
DX: K04.7 Periapical abscess without sinus (principal); K21.9 Gastro-esophageal reflux disease without esophagitis; J45.909 Unspecified asthma, uncomplicated; Z86.73 Personal history of transient ischemic attack (TIA), and cerebral infarction without residual deficits; Z86.69 Personal history of other diseases of the nervous system and sense organs; Z90.49 Acquired absence of other specified parts of digestive tract; Z98.890 Other specified postprocedural states; Z79.899 Other long term (current) drug therapy; Z88.6 Allergy status to analgesic agent; Z88.8 Allergy status to other drugs, medicaments and biological substances
CPT/HCPCS: 99282

== ENCOUNTER 2020-09-02 16:17 | Emergency (ER) | payer MEDICAID ==
--- NOTE | 2020-09-02 17:05 | XRay Report ---
XR knee 3V RT INDICATION / CLINICAL INFORMATION: right knee with poss fluid "popped knee". COMPARISON: None available. FINDINGS: BONES/JOINT(S): No acute fracture or subluxation. No significant degenerative changes. No appreciable joint effusion. SOFT TISSUES: No significant abnormality. ADDITIONAL FINDINGS: None. Signer Name: Sridhar Mishra MD Signed: 09/02/2020 5:01 PM Workstation Name: [id number]
--- NOTE | 2020-09-02 17:42 | Emergency Department Report ---
ED Extremity Problem HPI - General Chief complaint: Extremity Injury, Lower Stated complaint: FLUID ON RIGHT KNEE / PAIN Time Seen by Provider: 09/02/20 17:35 Source: patient Mode of arrival: Ambulatory Limitations: No Limitations - History of Present Illness Initial comments: 55-year-old -[place] female presents to the emergency room complaining of fluid on her right knee and pain that is been going on for several months. Patient denies any injury. Patient states she has been taking Tylenol PM. She has been using ice and heat. She was referred to orthopedic provider by her primary care provider Dr. Cole but never followed through. Patient has an allergy to oxycodone aspirin and ibuprofen. MD Complaint: extremity pain Onset/Timin -: month(s) Location: right, knee Severity scale (0 -10): 9 Quality: stabbing Consistency: constant Improves with: movement Worsens with: weight bearing Associated Symptoms: denies other symptoms - Related Data Previous Rx's Medication Instructions Recorded Last Taken Type lisinopriL [Zestril TAB] 20 mg PO QDAY #30 tablet 06/20/16 Unknown Rx amLODIPine 5 mg PO DAILY #30 tab 08/13/16 Unknown Rx levETIRAcetam [Keppra TAB] 1,000 mg PO BID 30 Days #60 tab 09/01/18 Unknown Rx levETIRAcetam [Keppra TAB] 500 mg PO BID 30 Days #60 tablet 09/01/18 Unknown Rx Omeprazole 40 mg PO DAILY #30 capsule. 09/25/18 Unknown Rx raNITIdine HCl [Zantac] 150 mg PO Q12H #30 tablet 09/25/18 Unknown Rx Potassium Chloride [K-Dur] 20 meq PO BID #3 tab 02/04/19 Unknown Rx atenoloL [Tenormin] 50 mg PO DAILY 30 Days #30 tab 02/04/19 Unknown Rx Acetaminophen/Codeine [Tylenol 1 tab PO Q6H PRN #10 tab 02/25/19 Unknown Rx /Codeine # 3 tab] Dicyclomine [Bentyl] 20 mg PO Q6H PRN #24 tablet 02/25/19 Unknown Rx Famotidine [Pepcid] 20 mg PO Q12H #30 tablet 02/25/19 Unknown Rx Ondansetron [Zofran ODT TAB] 8 mg PO Q8HR PRN #21 tab.rapdis 02/25/19 Unknown Rx cephALEXin [Keflex] 500 mg PO Q6HR #40 capsule 02/25/19 Unknown Rx Acetaminophen [Mapap] 1,000 mg PO Q6H PRN #30 tablet 05/11/19 Unknown Rx Amoxicillin [Trimox CAP] 500 mg PO Q8H #30 capsule 05/11/19 Unknown Rx Chlorhexidine Mouthwash [Peridex] 15 ml MM BID #1 bottle 05/11/19 Unknown Rx Chlorhexidine Mouthwash [Peridex] 15 ml MM TID #473 ml 10/13/19 Unknown Rx Clindamycin [Clindamycin CAP] 300 mg PO Q8H 10 Days #30 cap 10/13/19 Unknown Rx Allergies Allergy/AdvReac Type Severity Reaction Status Date / Time oxycodone HCl [From Percocet] Allergy Unknown Verified 03/23/17 12:48 aspirin AdvReac Vomiting Verified 03/23/17 12:48 ibuprofen [From Motrin] AdvReac Vomiting Verified 03/23/17 12:48 ED Review of Systems ROS: Stated complaint: FLUID ON RIGHT KNEE / PAIN Other details as noted in HPI Comment: All other systems reviewed and negative ED Past Medical Hx - Past Medical History Previous Medical History?: Yes Hx Hypertension: Yes Hx CVA: Yes (TIA) Hx Heart Attack/AMI: No Hx Congestive Heart Failure: No Hx Diabetes: No Hx Deep Vein Thrombosis: No Hx Pulmonary Embolism: No Hx GERD: Yes Hx Liver Disease: No Hx Renal Disease: No Hx Sickle Cell Disease: No Hx Arthritis: No Hx Headaches / Migraines: No Hx Seizures: Yes Hx Kidney Stones: No Hx Asthma: Yes Hx COPD: No Hx Tuberculosis: No Hx Dementia: No Hx HIV: No Additional medical history: FIBROIDS. CHRONIC BACK PAIN. Tachycardia. gastroparesis - Surgical History Past Surgical History?: Yes Hx Coronary Stent: No Hx Open Heart Surgery: No Hx Pacemaker: No Hx Internal Defibrillator: No Hx Cholecystectomy: Yes Hx Appendectomy: No Hx Breast Surgery: No Additional Surgical History: rotator cuff - Social History Smoking Status: Never Smoker Substance Use Type: None - Medications Home Medications: Home Medications Medication Instructions Recorded Confirmed Last Taken Type lisinopriL [Zestril TAB] 20 mg PO QDAY #30 tablet 06/20/16 Unknown Rx amLODIPine 5 mg PO DAILY #30 tab 08/13/16 Unknown Rx levETIRAcetam [Keppra TAB] 1,000 mg PO BID 30 Days #60 tab 09/01/18 Unknown Rx levETIRAcetam [Keppra TAB] 500 mg PO BID 30 Days #60 tablet 09/01/18 Unknown Rx Omeprazole 40 mg PO DAILY #30 capsule.dr 09/25/18 Unknown Rx raNITIdine HCl [Zantac] 150 mg PO Q12H #30 tablet 09/25/18 Unknown Rx Potassium Chloride [K-Dur] 20 meq PO BID #3 tab 02/04/19 Unknown Rx atenoloL [Tenormin] 50 mg PO DAILY 30 Days #30 tab 02/04/19 Unknown Rx Acetaminophen/Codeine [Tylenol 1 tab PO Q6H PRN #10 tab 02/25/19 Unknown Rx /Codeine # 3 tab] Dicyclomine [Bentyl] 20 mg PO Q6H PRN #24 tablet 02/25/19 Unknown Rx Famotidine [Pepcid] 20 mg PO Q12H #30 tablet 02/25/19 Unknown Rx Ondansetron [Zofran ODT TAB] 8 mg PO Q8HR PRN #21 tab.rapdis 02/25/19 Unknown Rx cephALEXin [Keflex] 500 mg PO Q6HR #40 capsule 02/25/19 Unknown Rx Acetaminophen [Mapap] 1,000 mg PO Q6H PRN #30 tablet 05/11/19 Unknown Rx Amoxicillin [Trimox CAP] 500 mg PO Q8H #30 capsule 05/11/19 Unknown Rx Chlorhexidine Mouthwash [Peridex] 15 ml MM BID #1 bottle 05/11/19 Unknown Rx Chlorhexidine Mouthwash [Peridex] 15 ml MM TID #473 ml 10/13/19 Unknown Rx Clindamycin [Clindamycin CAP] 300 mg PO Q8H 10 Days #30 cap 10/13/19 Unknown Rx ED Physical Exam - General Limitations: No Limitations General appearance: alert, in no apparent distress - Head Head exam: Present: atraumatic, normocephalic - Eye Eye exam: Present: normal appearance - ENT ENT exam: Present: normal external ear exam - Neck Neck exam: Present: normal inspection, full ROM - Respiratory Respiratory exam: Absent: accessory muscle use - Cardiovascular Cardiovascular Exam: Present: regular rate - Expanded Lower Extremity Exam Right Hip exam: Present: full ROM Upper Leg exam: Present: normal inspection, full ROM Knee exam: Present: full ROM, crepidus. Absent: tenderness, swelling, deformity, effusion Lower Leg exam: Present: normal inspection, full ROM. Absent: tenderness, swelling Ankle exam: Present: normal inspection. Absent: full ROM Foot/Toe exam: Present: normal inspection - Back Exam Back exam: Present: normal inspection - Neurological Exam Neurological exam: Present: alert, oriented X3 - Psychiatric Psychiatric exam: Present: normal affect, normal mood - Skin Skin exam: Present: warm, dry, intact, normal color. Absent: rash ED Course Vital Signs 09/02/20 16:32 Temperature 98.1 F Pulse Rate 70 Respiratory 18 Rate Blood Pressure 109/55 O2 Sat by Pulse 95 Oximetry ED Medical Decision Making - Radiology Data Radiology results: report reviewed [facility] [address] [place] [address] XRay Report Signed Patient: KRISS PIÑA MR#: [id number] : 1965 Acct:[id number] Age/Sex: 55 / F ADM Date: 09/02/20 Loc: ED Attending Dr: Ordering Physician: AYESHA MURO MD Date of Service: 09/02/20 Procedure(s): XR knee 3V RT Accession Number(s): [id number] cc: AYESHA MURO MD Fluoro Time In Minutes: XR knee 3V RT INDICATION / CLINICAL INFORMATION: right knee with poss fluid "popped knee". COMPARISON: None available. FINDINGS: BONES/JOINT(S): No acute fracture or subluxation. No significant degenerative changes. No appreciable joint effusion. SOFT TISSUES: No significant abnormality. ADDITIONAL FINDINGS: None. Signer Name: Sridhar Mishra MD Signed: 09/02/2020 5:01 PM Workstation Name: [id number] Transcribed By: SCOTT Dictated By: Sridhar Mishra MD Electronically Authenticated By: Sridhar Mishra MD Signed Date/Time: 09/02/201700 DD/ 00 TD/TT: - Medical Decision Making 55-year-old -[place] female presents to the emergency room complaining of fluid on her right knee and pain that is been going on for several months. Patient denies any injury. Patient states she has been taking Tylenol PM. She has been using ice and heat. She was referred to orthopedic provider by her primary care provider Dr. Cole but never followed through. Patient has an allergy to oxycodone aspirin and ibuprofen. X-rays negative for any acute abnormalities. Recommend ibuprofen extra strength and follow-up with orthopedics. Critical care attestation.: If time is entered above; I have spent that time in minutes in the direct care of this critically ill patient, excluding procedure time. ED Disposition Clinical Impression: Chronic pain of right knee Disposition: DC- TO HOME OR SELFCARE Is pt being admited?: No Does the pt Need Aspirin: No Condition: Stable Instructions: Chronic Knee Pain, Adult, [id number] Additional Instructions: X-ray of knee shows no acute abnormalities. Recommend to follow-up with orthopedics. Continue with Tylenol extra strength. Referrals: PRIMARY MD GURPREET [Primary Care Provider] - 3-5 Days JUANCARLOS STANLEY MD [Staff Physician] - 3-5 Days [facility] [Provider Group] - 3-5 Days
[2020-09-02 17:44] VITALS: BP 105/79
== END 2020-09-02 17:51 | disposition home or self-care (01) ==
LOC: ED 16:17
DX: M25.561 Pain in right knee (principal); G89.29 Other chronic pain; I10 Essential (primary) hypertension; K21.9 Gastro-esophageal reflux disease without esophagitis; R56.9 Unspecified convulsions; J45.909 Unspecified asthma, uncomplicated; Z86.73 Personal history of transient ischemic attack (TIA), and cerebral infarction without residual deficits; Z90.49 Acquired absence of other specified parts of digestive tract; Z98.890 Other specified postprocedural states; Z79.899 Other long term (current) drug therapy; Z88.8 Allergy status to other drugs, medicaments and biological substances